=== PATIENT | male | born 1955 | race Caucasian/White ===

== ENCOUNTER 2019-09-15 04:43 | Emergency (ER) | payer OTHER, SELFPAY ==
[2019-09-14 09:01] VITALS: BMI 31.9
[2019-09-15 04:46] VITALS: BP 175/103; PULSE 80; RESP 12; TEMP 36.5; O2SAT 96; BMI 33.3
[2019-09-15 04:51] VITALS: BP 175/103; PULSE 80; RESP 12; TEMP 35.9; O2SAT 96
--- NOTE | 2019-09-15 04:52 | ED.RN ---
CALLED FOR EKG PER RN REQUEST, PULLED OLD EKGS FOR
--- NOTE | 2019-09-15 05:13 | EKG12_ITS ---
Test Reason : CP Blood Pressure : / mmHG Vent. Rate : 071 BPM Atrial Rate : 071 BPM P-R Int : 172 ms QRS Dur : 086 ms QT Int : 410 ms P-R-T Axes : 066 044 053 degrees QTc Int : 445 ms Normal sinus rhythm with sinus arrhythmia Normal ECG Confirmed by CHRISTIAN RODRIGUES, KEVON ([id number]), editor city LENNY HUGGINS ([id number]) on 09/22/2019 2:02:21 PM Referred By: YAS Confirmed By:KEVON GONZALES MD
--- NOTE | 2019-09-15 05:13 | RAD_ITS ---
STUDY: X-RAY CHEST REASON FOR EXAM: Male, 64 years old. Shortness of breath and chest pain and upper back pain TECHNIQUE: PA and lateral views of the chest. COMPARISON: None. FINDINGS: There are superimposed monitor leads. The lungs are clear and expanded. There is no demonstrated pleural abnormality. Normal size heart. Normal mediastinum and gabriel. Normal visualized pulmonary arteries. Normal visualized aortic arch and descending thoracic aorta. Normal visualized thoracic spine. Normal visualized ribs, clavicles, and shoulders. There is no demonstrated abnormality of the visualized soft tissue structures of the upper abdomen. RAD/Chest PA and Lateral IMPRESSION: Normal x-ray examination of the chest. Electronically Signed: Sharon Almonte MD at 6:03 EST , Service support ,
--- NOTE | 2019-09-15 05:14 | ED.VIS.GEN ---
History of Present Illness Chief Complaint: Chest Other Narrative: Patient is a 64-year-old male who presents with shortness of breath and dizziness. He denies medical history but does not have a primary care physician. He began to not feel well Saturday night. He had a fever of 102 and generalized malaise. He reports cough. He was seen at the urgent care yesterday diagnosed with a viral syndrome and prescribed azithromycin. Last night he woke up and had upper back pain shortness of breath and chest tightness. He also felt dizzy as if he may pass out. He has not had recurrent fever. He denies myalgias or arthralgias. No sore throat. He does complain of headache. No abdominal pain vomiting or diarrhea. Past Medical History - Allergies and Home Meds Allergies/Adverse Reactions: Allergies codeine Allergy (Verified 09/15/19 04:54) Unknown Sulfa (Sulfonamide Antibiotics) Allergy (Verified 09/15/19 04:54) Unknown Primary Care Physician: Wally Gan MD [Primary Care Provider] - Past Medical History: - - Denies medical history Surgical History: noncontributory Smoking Status: Never smoker Review of Systems All systems negative except as indicated General: Reports: Fever Cardiovascular: Reports: Chest pain Respiratory: Reports: Dyspnea, Cough Musculoskeletal: Reports: Back pain Neurological: Reports: Headache Physical Exam Vital Signs/Narrative: Vital Signs Temp Pulse Resp BP Pulse Ox 09/15/19 04:51 96.6 F L 80 12 175/103 H 96 09/15/19 04:46 97.7 F L 80 12 175/103 H 96 Inital Vital Signs reviewed: Yes General: Well nourished, Well developed Head: Normocephalic Eyes: EOMI ENT: Moist mucous membranes Cardiovascular: Regular rate, Regular rhythm Respiratory: No distress, CTA bilaterally Abdomen: Soft, Nontender, Nondistended Skin: Normal color Neurological: Alert Psychological: Normal affect Diagnostic/Tx/Re-eval - Medical Decision Making EKG shows normal sinus rhythm with a sinus arrhythmia. No acute ischemic changes. Laboratory studies as above. Chest x-ray unremarkable labs unremarkable. Patient's orthostatic vital signs were negative. He was treated here with IV fluids and does feel much better. He was able to stand without recurrent dizziness. I believe his near syncope may have been related to component of dehydration. At this time he has normal vital signs feels better with an unremarkable work-up I do feel he is safe for discharge. However he understands to return for new or worsening symptoms and was instructed on specific signs and symptoms to monitor for. He was advised to follow-up as an outpatient. All questions answered at the bedside and patient is agreeable to this plan. ED Disposition - Plan for ED Patient: Disposition: Home or Assisted Living Diagnosis: Viral syndrome, Near syncope Instructions: VIRAL SYNDROME (Adult), DEHYDRATION (6y-Adult) Referrals: Wally Gan MD [Primary Care Provider] -
[2019-09-15 05:20] LABS: Absolute Lymphocyte Count 2.47 X10^3/uL (0.83-4.51); Absolute Neutrophil Count 5.8 X10^3/uL (2.0-7.7); Basophil# 0.08 X10^3/uL; Basophil% 0.8 % (0-1); Eosinophil# 0.72 X10^3/uL; Eosinophils% 7.2 % (0-5); Hematocrit 48.1 % (40-54); Hemoglobin 16.1 g/dL (13.0-16.5); Lymphocyte # 2.47 X10^3/ul (4.0); Lymphocyte % 24.7 % (19-41); Mean Corp Hgb Conc 33.5 g/dL (32-36); Mean Corpuscular Hgb 30.3 pg (27.0-32.0); Mean Corpuscular Volume 90.4 fL (80-94); Mean Platelet Vol. 9.5 fl (6.2-12.0); Monocyte# 0.94 X10^3/uL; Monocyte% 9.4 % (0-10); NRBC Flagged by Analyzer 0 % (0-5); Neutrophil # 5.76 X10^3/uL (2.7-7.7); Neutrophil % 57.4 % (47-70); Platelet Count 286 K/mm3 (150-450); RBC Distribution Width CV 12.8 % (11.6-14.6); RBC Distribution Width SD 41.7 fl (35.1-43.9); Red Blood Count 5.32 M/mm3 (4.6-6.2)
[2019-09-15] MEDS: Ketorolac 30 MG/ML Syringe IV (05:23)
[2019-09-15] MEDS: 0.9% Normal Saline 1,000 ML 1000 ML IV (05:24)
[2019-09-15 05:25] VITALS: BP 160/98; BP 161/95; BP 167/93; PULSE 59; PULSE 65; PULSE 70
[2019-09-15 05:38] LABS: Anion Gap 6 (5-15); BUN 14 mg/dL (7-18); BUN/Creat Ratio 13.6 RATIO (10-20); Calcium,Total 8.8 mg/dL (8.5-10.1); Chloride 107 mmol/L (98-107); Creatinine, Serum 1.03 mg/dL (0.70-1.30); EST Glomerular Filtration Rate 77 mL/min (>60); Est Glom Filt Rate - Afr Amer 94 mL/min (>60); Estimated Creatinine Clearance 68.63 ml/min; Glucose 119 mg/dL (74-106); Potassium 3.9 mmol/L (3.5-5.1); Sodium Level 141 mmol/L (136-145)
[2019-09-15 06:29] VITALS: BP 136/83; PULSE 53; RESP 12; O2SAT 96
== END 2019-09-15 06:38 | disposition home or self-care (01) ==
PROVIDERS: Emergency Provider Emergency Medicine; Family Provider Family Medicine; PCP Family Medicine
DX: B34.9 Viral infection, unspecified (principal); R55 Syncope and collapse; Z88.2 Allergy status to sulfonamides; Z88.5 Allergy status to narcotic agent
CPT/HCPCS: 71046; 80048; 84484; 85025; 93005; 96361; 96374; 99285; A4216

== ENCOUNTER → 2019-12-24 14:23 | Outpatient (CLI) | payer OTHER, SELFPAY ==
--- NOTE | 2019-12-24 14:36 | EKG12_ITS ---
Test Reason : PREOP Blood Pressure : / mmHG Vent. Rate : 083 BPM Atrial Rate : 083 BPM P-R Int : 176 ms QRS Dur : 084 ms QT Int : 362 ms P-R-T Axes : 056 043 064 degrees QTc Int : 425 ms Normal sinus rhythm Normal ECG Confirmed by ADONAY RODRIGUES, LOREN ([id number]), photo editor LENNY HUGGINS ([id number]) on 12/25/2019 8:01:30 AM Referred By: Dangelo Martinez Confirmed By:SAM URISA MD
[2019-12-24 15:42] LABS: Hematocrit 45.9 % (40-54); Hemoglobin 15.5 g/dL (13.0-16.5); Mean Corp Hgb Conc 33.8 g/dL (32-36); Mean Corpuscular Hgb 30.1 pg (27.0-32.0); Mean Corpuscular Volume 89.1 fL (80-94); Mean Platelet Vol. 9.7 fl (6.2-12.0); Platelet Count 300 K/mm3 (150-450); RBC Distribution Width CV 12.8 % (11.6-14.6); RBC Distribution Width SD 41.6 fl (35.1-43.9); Red Blood Count 5.15 M/mm3 (4.6-6.2); White Blood Count 10.5 K/mm3 (4.4-11.0)
[2019-12-24 16:11] LABS: Anion Gap 5 (5-15); BUN 24 mg/dL (7-18); BUN/Creat Ratio 25.1 RATIO (10-20); Calcium,Total 9.2 mg/dL (8.5-10.1); Chloride 105 mmol/L (98-107); Creatinine, Serum 0.96 mg/dL (0.70-1.30); EST Glomerular Filtration Rate 84 mL/min (>60); Est Glom Filt Rate - Afr Amer 102 mL/min (>60); Glucose 85 mg/dL (74-106); Potassium 3.8 mmol/L (3.5-5.1); Sodium Level 138 mmol/L (136-145)
== END ==
PROVIDERS: PCP Family Medicine; Referring Provider Physician Assistant; Visit Provider Physician Assistant
DX: Z01.818 Encounter for other preprocedural examination (principal); Z01.810 Encounter for preprocedural cardiovascular examination
CPT/HCPCS: 36415; 80048; 85027; 93005

== ENCOUNTER → 2021-03-14 16:20 | Outpatient (CLI) | payer BC, SELFPAY ==
--- NOTE | 2021-03-14 16:25 | EKG12_ITS ---
Test Reason : PRE OP Blood Pressure : / mmHG Vent. Rate : 085 BPM Atrial Rate : 085 BPM P-R Int : 190 ms QRS Dur : 084 ms QT Int : 364 ms P-R-T Axes : 060 043 061 degrees QTc Int : 433 ms Normal sinus rhythm Normal ECG Confirmed by PASCALE RODRIGUES, LYNDON ([id number]), makeup editor VERONICA WARD ([id number]) on 03/16/2021 8:59:55 AM Referred By: Ino Castelan Confirmed By:LYNDON ASHRAF MD
[2021-03-14 17:10] LABS: Hematocrit 45.8 % (40-54); Hemoglobin 14.8 g/dL (13.0-16.5); Mean Corp Hgb Conc 32.3 g/dL (32-36); Mean Corpuscular Hgb 28.7 pg (27.0-32.0); Mean Corpuscular Volume 88.8 fL (80-94); Mean Platelet Vol. 9.4 fl (6.2-12.0); Platelet Count 324 K/mm3 (150-450); RBC Distribution Width CV 12.9 % (11.6-14.6); Red Blood Count 5.16 M/mm3 (4.6-6.2); White Blood Count 10.3 K/mm3 (4.4-11.0)
[2021-03-14 18:15] LABS: Anion Gap 8 (5-15); BUN 19 mg/dL (7-18); Calcium,Total 9.1 mg/dL (8.5-10.1); Chloride 104 mmol/L (98-107); EST Glomerular Filtration Rate 90 mL/min (>60); Est Glom Filt Rate - Afr Amer 109 mL/min (>60); Glucose 93 mg/dL (74-106); Potassium 3.9 mmol/L (3.5-5.1); Sodium Level 138 mmol/L (136-145)
== END ==
PROVIDERS: PCP Family Medicine; Referring Provider Orthopaedic Surgery; Visit Provider Orthopaedic Surgery
DX: Z01.810 Encounter for preprocedural cardiovascular examination (principal); Z01.818 Encounter for other preprocedural examination
CPT/HCPCS: 36415; 80048; 85027; 93005

== ENCOUNTER 2021-06-04 12:04 | Observation (INO) | payer BC, MEDICARE, SELFPAY ==
[2021-06-04] VITALS (17 sets, daily range): BP systolic 147–175; BP diastolic 72–94; PULSE 73–98; RESP 12–24; TEMP 36.5–37; O2SAT 95–98; BMI 34.5; BMI 34.9; BMI 34.0
--- NOTE | 2021-06-04 12:10 | ED.RN ---
THIS RN SPOKE WITH DR. ALCALA REGARDING PT SX. STROKE TEAM INITIATED.
[2021-06-04 12:16] LABS: Bedside Glucose 101 mg/dL (70-110)
--- NOTE | 2021-06-04 12:16 | CT_ITS ---
History: Neuro deficit, acute, stroke suspected TECHNIQUE: Routine carotid CT angiogram protocol was performed without and with IV contrast. In addition, images were obtained of the [place]. Nascet criteria using the distal ICAs for comparison were used for evaluation of stenoses. 3D reconstructions were reviewed. A radiation dose optimization technique was used for this scan. IV Contrast dosage and agent: 100mL Isovue-300 IV 100mL Isovue-300 CTA imaging was analyzed by [facility] LVO ContaCT to enable computer-assisted triage notification to rapidly detect a LVO and shortened time to notification. COMPARISON: None FINDINGS: --NECK: Calcific plaquing noted at both carotid bifurcations. AORTIC ARCH AND BRANCHES: Normal anatomy, patent. RIGHT CCA: No occlusion, significant stenosis or dissection. RIGHT ICA: No occlusion, significant stenosis or dissection. LEFT CCA: No occlusion, significant stenosis or dissection. LEFT ICA: No occlusion, significant stenosis or dissection. RIGHT VERTEBRAL ARTERY: No occlusion, significant stenosis or dissection. LEFT VERTEBRAL ARTERY: No occlusion, significant stenosis or dissection. NECK SOFT TISSUES: Unremarkable. LUNG APICES: Clear. BONES: Unremarkable. --HEAD: --Anterior circulation: ICAs: No significant stenosis at the intracranial/visualized segments. ACAs: No significant stenosis at the visualized segments. ACOM: Present. MCAs: No significant stenosis at the visualized segments. --Posterior circulation: PCOMs: Not present mangle feeder: No significant stenosis at the visualized segments. BASILAR ARTERY: No significant stenosis. VERTEBRAL ARTERIES: No significant stenosis at the intradural/visualized segments. No evidence of intracranial aneurysm or vascular malformation. CT/STROKE CTA Head AND Neck W/Con IMPRESSION: Negative CTA Head and Neck. Individualized dose optimization techniques were used for this CT. at 1250 Reported and signed by: Carlito Capps MD N.B. : The above Results were Read Back by Carlito Capps MD to Belinda Frank and understanding confirmed on 06/04/2021 12:46:26 (ET). Electronically Signed: Carlito Capps MD at 12:49 EDT Tel , Service support ,
--- NOTE | 2021-06-04 12:16 | CT_ITS ---
EXAM: CT HEAD WITHOUT INTRAVENOUS CONTRAST : 1955 CLINICAL INDICATION: Neuro deficit, acute, stroke suspected TECHNIQUE: Multiple axial images were obtained of the head without intravenous contrast. This CT exam was performed using one or more of the following dose reduction techniques: automated exposure control, adjustment of the mA and/or kV according to patient size, and/or use of iterative reconstruction technique. This report was created using [employer] report generation technology. COMPARISON: None. FINDINGS: BRAIN AND EXTRA-AXIAL SPACES: Unremarkable. No intra- or extra-axial hemorrhage. No evidence of acute infarct. No intracranial mass or mass effect. There is preservation of the gallardo/white matter interface. Posterior fossa structures are unremarkable. Ventricles are appropriate for age. No hydrocephalus. Basal cisterns are patent. BONES/JOINTS: Unremarkable. No discrete lytic or blastic abnormalities. SINUSES: Unremarkable as visualized. Clear. MASTOID AIR CELLS: Unremarkable. Clear. ORBITS: Visualized globes, extraocular muscles, optic nerves and retrobulbar fat appear unremarkable. CT/STROKE Brain/Head without Cont IMPRESSION: No acute intracranial abnormality. Aspect score: 10 Individualized dose optimization techniques were used for this CT. at 1246 Reported and signed by: Carlito Capps MD N.B. : The above Results were Read Back by Carlito Capps MD to Dr. Marie [id number], and understanding confirmed on 06/04/2021 12:46:19 (ET). Electronically Signed: Carlito Capps MD at 12:45 EDT Tel , Service support ,
--- NOTE | 2021-06-04 12:16 | RAD_ITS ---
History: Neuro deficit, acute, stroke suspected EXAMINATION/TECHNIQUE: XR Chest 1 View: Portable COMPARISON: September 15, 2019 FINDINGS: LINES/DEVICES: None. LUNGS: No consolidation, edema or effusion. No pneumothorax. MEDIASTINUM AND CARDIOVASCULAR STRUCTURES: Cardiac silhouette not enlarged. Central airways and mediastinal contour are unremarkable. BONES AND SOFT TISSUES: Unremarkable. RAD/Chest 1 View IMPRESSION: No radiographic evidence of acute cardiopulmonary disease. at 1346 Reported and signed by: Carlito Capps MD Electronically Signed: Carlito Capps MD at 13:45 EDT Tel , Service support ,
--- NOTE | 2021-06-04 12:16 | EKG12_ITS ---
Test Reason : STROKE TEAM Blood Pressure : / mmHG Vent. Rate : 085 BPM Atrial Rate : 085 BPM P-R Int : 192 ms QRS Dur : 088 ms QT Int : 370 ms P-R-T Axes : 047 044 046 degrees QTc Int : 440 ms Normal sinus rhythm Normal ECG Confirmed by KEVON GONZALES MD ([id number]), newspaper managing editor VERONICA WARD ([id number]) on 06/06/2021 9:44:02 AM Referred By: CARI Confirmed By:KEVON GONZALES MD
--- NOTE | 2021-06-04 12:17 | EDS_ITS ---
HPI History of Present Illness Chief Complaint: Confusion Informant: patient and spouse/S.O. Onset/Context/Timing Onset: Today Narrative Narrative: Patient presents with spouse secondary to confusion. states th at he was normal at 10 AM this morning. He went took a shower then went to the garage for short time. When he came back in the house he asked her what she was doing. She had explained what she was going to be doing in a conversation earlier in the day. Patient states he did not remember any of that. He does not remember things from this morning or even what occurred yesterday. He denies falling and injuring himself. He has no complaints at this time other than he feels confused. [facility] Medical History Arthritis Knee pain Shoulder pain Stomach ulcer Home Medications aspirin 81 mg PO DAILY 06/04/21 [History Last Taken Unknown] naproxen 06/04/21 [History Last Taken Unknown] Allergy/AdvReac Type Severity Reaction Status Date / Time codeine Allergy Unknown Verified 06/04/21 12:04 Sulfa (Sulfonamide Allergy Unknown Verified 06/04/21 12:04 Antibiotics) Family History Other Cancer Heart disease Surgical History History of back surgery History of knee surgery History of shoulder surgery Social History Smoking Status: Never smoker alcohol intake: current alcohol intake frequency: a few times a week Alcohol type: beer and wine ROS ROS ED Constitutional Constitutional ED: Denies chills or fever(s) Eyes Eyes: Denies change in vision ENT ENT ED: Denies sore throat Cardiovascular Cardiovascular: Denies chest pain Respiratory/Chest Respiratory/Chest: Denies cough or dyspnea Gastrointestinal Gastrointestinal: Denies abdominal pain, diarrhea, nausea or vomiting Genitourinary Genitourinary ED: Denies dysuria Musculoskeletal Musculoskeletal: Denies back pain Integumentary Denies rash Neurologic Neurologic: Denies headache(s) or weakness Psychiatric Psychiatric: Denies anxiety or depression Endocrine Endocrinology: Denies polydipsia or polyuria Allergic/Immunologic Allergic/Immunologic ED: Denies urticaria EXAM Physical Exam Const Vital Signs: 06/04/21 12:05 06/04/21 12:11 06/04/21 12:13 Temperature 98.6 F 98.6 F Temperature Source Temporal Temporal Pulse Rate 95 92 91 Respiratory Rate 16 15 15 Blood Pressure 171/93 H 175/84 H 175/84 H Blood Pressure Mean 119 114 114 Pulse Ox 97 97 97 Oxygen Delivery Method Room Air Room Air Room Air 06/04/21 12:21 06/04/21 12:25 06/04/21 12:40 Temperature Temperature Source Pulse Rate 98 89 Respiratory Rate 12 24 H Blood Pressure 156/94 H 158/94 H Blood Pressure Mean 114 115 Pulse Ox 96 97 Oxygen Delivery Method Room Air Room Air Room Air 06/04/21 12:55 06/04/21 13:10 06/04/21 13:25 Temperature Temperature Source Pulse Rate 74 79 81 Respiratory Rate 19 H 18 17 Blood Pressure 156/74 H 149/91 H 157/88 H Blood Pressure Mean 101 110 111 Pulse Ox 95 97 98 Oxygen Delivery Method Room Air Room Air Room Air 06/04/21 13:40 Temperature Temperature Source Pulse Rate 78 Respiratory Rate 18 Blood Pressure 153/89 H Blood Pressure Mean 110 Pulse Ox 97 Oxygen Delivery Method Room Air Positive well nourished and well developed General Appearance ED: well developed HEENT Reports normocephalic and head/scalp atraumatic Eyes PERRL and EOMs intact bilaterally Neck supple Chest Wall inspection of chest normal and palpation of chest normal Resp normal respiratory effort and clear to auscultation bilaterally Cardio regular rate and regular rhythm GI normal to inspection, nondistended, normoactive bowel sounds Palpation: soft Extremity normal to inspection Neuro oriented x3 and no sensory deficits noted Sensorium / Orientation: alert Motor Exam: strength 5/5 throughout Psych mental status grossly normal Skin no rashes or lesions noted STROKE Vital Signs/Narrative: Vital Signs Temp Pulse Resp BP Pulse Ox 06/04/21 13:40 78 18 153/89 H 97 06/04/21 13:25 81 17 157/88 H 98 06/04/21 13:10 79 18 149/91 H 97 06/04/21 12:55 74 19 H 156/74 H 95 06/04/21 12:40 89 24 H 158/94 H 97 06/04/21 12:25 98 12 156/94 H 96 06/04/21 12:13 98.6 F 91 15 175/84 H 97 06/04/21 12:11 92 15 175/84 H 97 06/04/21 12:05 98.6 F 95 16 171/93 H 97 NIHSS Initial: 1a Level of Consciousness: 0 1b LOC Questions (Score 2 if aphasic/stupor): 0 1c LOC Commands (Only score 1st attempt): 0 2 Best Gaze (If aphasic, use reflexive mvmts.): 0 3 Visual: 0 4 Facial Palsy: 0 5 Motor Arm Right (UN = amputation/fusion): 0 5 Motor Arm Left: 0 6 Motor Leg Right: 0 6 Motor Leg Left: 0 7 Limb ataxia (Only + if out of proportion): 0 8 Sensory (Aphasia/stupor=0 or 1, coma=2): 0 9 Best Language: 0 10 Dysarthria (mute, coma=2, intubated=UN): 0 11 Extinction and Inattention (only scored if +): 0 Total Score: 0 MDM MDM MDM Narrative Medical decision making narrative: Stroke alert was called on patient arrival. Patient was sent for CT and CTA of the head and neck. Labs, EKG, chest x-ray obtained. Lab Data Attestation: I reviewed the patient's lab results. Labs: Laboratory Results - last 24 hr 06/04/21 06/04/21 06/04/21 12:12 12:15 12:15 WBC 8.5 RBC 5.09 Hgb 15.2 Hct 45.7 MCV 89.8 MCH 29.9 MCHC 33.3 RDW Std Deviation 44.3 H RDW Coeff of Lisa 13.5 Plt Count 294 MPV 9.4 Immature Gran % (Auto) 0.800 Neut % (Auto) 54.7 Lymph % (Auto) 25.8 [place] % (Auto) 10.8 H Eos % (Auto) 7.1 H Baso % (Auto) 0.8 Absolute Neuts (auto) 4.6 Absolute Lymphs (auto) 2.18 Nucleated RBC % 0.2 PT 12.4 INR 1.0 APTT 28.4 Sodium Potassium Chloride Carbon Dioxide Anion Gap BUN Creatinine Estim Creat Clear Calc Est GFR (MDRD) Af Amer Est GFR (MDRD) Non-Af BUN/Creatinine Ratio Glucose Calcium Troponin I High Sens POC Glucose 101 06/04/21 12:15 WBC RBC Hgb Hct MCV MCH MCHC RDW Std Deviation RDW Coeff of Lisa Plt Count MPV Immature Gran % (Auto) Neut % (Auto) Lymph % (Auto) [place] % (Auto) Eos % (Auto) Baso % (Auto) Absolute Neuts (auto) Absolute Lymphs (auto) Nucleated RBC % PT INR APTT Sodium 138 Potassium 4.3 Chloride 106 Carbon Dioxide 27.0 Anion Gap 5 BUN 18 Creatinine 0.86 Estim Creat Clear Calc 82.85 Est GFR (MDRD) Af Amer 115 Est GFR (MDRD) Non-Af 95 BUN/Creatinine Ratio 21.0 H Glucose 102 Calcium 9.0 Troponin I High Sens 6.6 POC Glucose Radiography Diagnostic Testing: Radiology Impression Brain CT 06/04/21 12:16 IMPRESSION: No acute intracranial abnormality. Aspect score: 10 Individualized dose optimization techniques were used for this CT. at 1246 Reported and signed by: Carlito Capps MD N.B. : The above Results were Read Back by Carlito Capps MD to Dr. Frank Salomon MD, and understanding confirmed on 06/04/2021 12:46:19 (ET). Electronically Signed: Carlito Capps MD at 12:45 EDT Tel , Service support , ADDENDUM: 06/04/21 1253 IMPRESSION: No acute intracranial abnormality. Aspect score: 10 Individualized dose optimization techniques were used for this CT. at 1246 Reported and signed by: Carlito Capps MD N.B. : The above Results were Read Back by Carlito Capps MD to Dr. Frank Salomon MD, and understanding confirmed on 06/04/2021 12:46:19 (ET). Electronically Signed: Carlito Capps MD at 12:45 EDT Tel , Service support , Chest X-Ray 06/04/21 12:16 IMPRESSION: No radiographic evidence of acute cardiopulmonary disease. at 1346 Reported and signed by: Carlito Capps MD Electronically Signed: Carlito Capps MD at 13:45 EDT Tel , Service support , Head/Neck CTA 06/04/21 12:16 IMPRESSION: Negative CTA Head and Neck. Individualized dose optimization techniques were used for this CT. at 1250 Reported and signed by: Carlito Capps MD N.B. : The above Results were Read Back by Carlito Capps MD to Belinda Marie and understanding confirmed on 06/04/2021 12:46:26 (ET). Electronically Signed: Carlito Capps MD at 12:49 EDT Tel , Service support , ADDENDUM: 06/04/21 1257 IMPRESSION: Negative CTA Head and Neck. Individualized dose optimization techniques were used for this CT. at 1250 Reported and signed by: Carlito Capps MD N.B. : The above Results were Read Back by Carlito Capps MD to Belinda Marie and understanding confirmed on 06/04/2021 12:46:26 (ET). Electronically Signed: Carlito Capps MD at 12:49 EDT Tel , Service support , EKG Initial EKG: Attestation: I personally reviewed and interpreted this EKG as follows: Interpretation: Sinus Rhythm (Sinus at 73 with no acute ischemia.) Treatment and Re-Evaluation Comments:: Patient went to CT and back. Neurologist from [facility] being done on the computer and evaluate the patient. Patient does not have any focal deficits at this time. TPA is not indicated. Neurologist feels this may represent transient global amnesia. He did recommend admission for MRI. Stroke Documentation Questions Stroke Team Activated: Yes Was Patient considered for Endovascular Intervention?: No IV Alteplase (t-PA) Administered: No Discharge Plan Triage Chief Complaint: Confusion ED Provider: Belinda Marie Dx/Rx/DC Orders Clinical Impression: Amnesia, global, transient Prescriptions: No Action naproxen 500 mg tablet 500 mg PO BID RF: 0 aspirin 81 mg Tablet 81 mg PO DAILY RF: 0 Primary Care Provider: Wally Gan Referrals: Wally Gan MD [Primary Care Provider] - Disposition Disposition: Acute Care Hospital [facility]
[2021-06-04 12:24] LABS: Absolute Lymphocyte Count 2.18 X10^3/uL (0.83-4.51); Absolute Neutrophil Count 4.6 X10^3/uL (2.0-7.7); Basophil# 0.07 X10^3/uL; Basophil% 0.8 % (0-1); Eosinophils% 7.1 % (0-5); Hematocrit 45.7 % (40-54); Hemoglobin 15.2 g/dL (13.0-16.5); Lymphocyte # 2.18 X10^3/ul (0.83-4.51); Lymphocyte % 25.8 % (19-41); Mean Corp Hgb Conc 33.3 g/dL (32-36); Mean Corpuscular Hgb 29.9 pg (27.0-32.0); Mean Corpuscular Volume 89.8 fL (80-94); Mean Platelet Vol. 9.4 fl (6.2-12.0); Monocyte# 0.91 X10^3/uL; Monocyte% 10.8 % (0-10); NRBC Flagged by Analyzer 0.2 % (0-5); Neutrophil # 4.63 X10^3/uL (2.7-7.7); Neutrophil % 54.7 % (47-70); Platelet Count 294 K/mm3 (150-450); RBC Distribution Width CV 13.5 % (11.6-14.6); RBC Distribution Width SD 44.3 fl (35.1-43.9); Red Blood Count 5.09 M/mm3 (4.6-6.2); White Blood Count 8.5 K/mm3 (4.4-11.0)
[2021-06-04 12:36] LABS: Prothrombin Time (Protime)PT. 12.4 SECONDS (11.7-14.9)
[2021-06-04 12:37] LABS: Partial Thromboplast Time 28.4 Seconds (24.1-36.2)
[2021-06-04 12:41] LABS: Anion Gap 5 (5-15); BUN 18 mg/dL (7-18); Chloride 106 mmol/L (98-107); Creatinine, Serum 0.86 mg/dL (0.70-1.30); EST Glomerular Filtration Rate 95 mL/min (>60); Est Glom Filt Rate - Afr Amer 115 mL/min (>60); Estimated Creatinine Clearance 82.85 ml/min; Glucose 102 mg/dL (74-106); Potassium 4.3 mmol/L (3.5-5.1); Sodium Level 138 mmol/L (136-145); Troponin-I HS 6.6 pg/mL (3.0-78.5)
[2021-06-04 15:34] LABS: Bacteria 0 SEEN /hpf (None Seen); Mucous, Urine 0 SEEN /hpf (<or=2+); White Blood Cells 0 SEEN /hpf (0-5)
[2021-06-04 15:36] LABS: Color, Urine Yellow (Yellow); Glucose, Dipstick Normal (Normal); Ketone-Dipstick Negative (Negative); Leukocyte Esterase-Dipstick Negative /ul (Negative); Nitrite-Dipstick Negative (Negative); Occult Blood-Urine 10 /ul (Negative); Protein-Dipstick Negative (Negative); Specific Gravity, Urine 1.015 (1.002-1.030); Urine Bilirubin Dipstick Negative (Negative); Urine Clarity Sl. Cloudy (Clear); Urine Urobilinogen Normal (Normal)
--- NOTE | 2021-06-04 15:46 | HP.PCM.HOS_ITS ---
Documented by User: Nico ORTIZ 06/04/21 16:11 HPI - General General Date of Admission: 06/04/21 Date of Service: 06/04/21 Chief Complaint: Confusion HPI Narrative CAITLYN ARNOLD, is a 66 y/o M who presents to the ED at [facility] on 06/04/2021 with a chief complaint of confusion. Patient unable to provide much insight into events around his condition, so history was mainly obtained from . According to patient's , patient and his spouse had intercourse this morning and proceeded to plan out their day together, after which, went out to the garage to do some housework. Patient's reports patient return to the house from the garage after about half an hour or so, he was unsure about the events that him and his previously discussed and cannot remember having any discussion or any events related to the morning. Review of systems was overall negative, and only revealed headache which patient relates to his stressful job. Patient denies any recent sick contacts, patient did have an asymptomatic Covid infection in March, and subsequently has received both doses of the Moderna vaccine. Patient had no significant past medical history. Family history was significant for a stroke suffered by his mother. Vital signs in the ED were slightly hypertensive at 150/80. Other vital signs stable and patient is afebrile. CBC and BMP unremarkable. Chest x-ray was unremarkable and did not reveal any acute cardiopulmonary process. Head/neck CT-A was unremarkable for any significant stenosis. Patient was given labetalol in the ED for high blood pressure, urine culture and MRI recommended per [facility] teleneurology service. [facility] Medical History Arthritis Carpal tunnel syndrome Knee pain Shoulder pain Stomach ulcer Home Medications aspirin 81 mg PO DAILY 06/04/21 [History Last Taken Unknown] naproxen 500 mg PO BID 06/04/21 [History Last Taken Unknown] Allergy/AdvReac Type Severity Reaction Status Date / Time codeine Allergy Unknown Verified 06/04/21 12:04 Sulfa (Sulfonamide Allergy Unknown Verified 06/04/21 12:04 Antibiotics) Family History (Updated 06/04/21 @ 16:02 by Nico ORTIZ) Father CAD (coronary artery disease) Heart disease Mother CVA (cerebral vascular accident) Other Cancer Surgical History History of back surgery History of knee surgery History of shoulder surgery Social History Smoking Status: Never smoker alcohol intake: current alcohol intake frequency: a few times a week Alcohol type: beer and wine ROS Constitutional Constitutional: Denies anorexia, change in weight, chills, fatigue, fever(s), malaise, night sweats, weakness or other Eyes Eyes: Denies blurry vision, change in eye color, change in vision, discharge from eye(s), double vision, erythema, eye pain, loss of vision or other ENT HEENT: Denies abnormal hearing, dysphagia, ear pain, epistaxis, headache(s), hearing loss, nasal congestion, nasal discharge, post nasal drip, sinus pr essure, sore throat or other Cardiovascular Cardiovascular: Denies chest pain, claudication, dyspnea on exertion, edema, lightheadedness, orthopnea, palpitations, paroxysmal nocturnal dyspnea, rapid heart rate, syncope or other Respiratory/Chest Respiratory/Chest: Denies cough, dyspnea, excessive phlegm production, hemoptysis, productive cough, shortness of breath at rest, shortness of breath with exertion, wheezing or other Gastrointestinal Gastrointestinal: Denies abdominal pain, coffee ground emesis, constipation, diarrhea, dyspepsia, hematemesis, hematochezia, loose stools, melena, nausea, vomiting or other Genitourinary Genitourinary: Denies burning urination, difficulty urinating, dysuria, hem aturia, nocturia, urinary frequency, urinary hesitancy, urinary incontinence, urinary urgency or other Musculoskeletal Musculoskeletal: Denies arthralgias, back pain, joint pain, joint stiffness, joint swelling, myalgias, neck pain or other Neurologic Neurologic: Reports confusion and headache(s); Denies abnormal gait, abnormal speech, disequilibrium, dizziness, focal weakness, numbness, paresthesias, seizure-like activity, seizures, syncope, tingling, tremor(s) or other Psychiatric Psychiatric: Denies anxiety, depression, homicidal ideation, suicidal ideation or other Endocrine Endocrinology: Denies change in body appearance, cold intolerance, excessive sweating, heat intolerance, polydipsia, polyuria or other Hematologic/Lymphatic Hematologic/Lymphatic: Denies anemia, easy bleeding, easy bruising, lymphadenopathy or other Allergic/Immunologic Allergic/Immunologic: Denies rhinitis, hives, eczemia, asthma or other Vital Signs Vital Signs Vital Signs: 06/04/21 12:05 06/04/21 12:11 06/04/21 12:13 Temperature 98.6 F 98.6 F Temperature Source Temporal Temporal Pulse Rate 95 92 91 Respiratory Rate 16 15 15 Blood Pressure 171/93 H 175/84 H 175/84 H Blood Pressure Mean 119 114 114 Pulse Ox 97 97 97 Oxygen Delivery Method Room Air Room Air Room Air 06/04/21 12:21 06/04/21 12:25 06/04/21 12:40 Temperature Temperature Source Pulse Rate 98 89 Respiratory Rate 12 24 H Blood Pressure 156/94 H 158/94 H Blood Pressure Mean 114 115 Pulse Ox 96 97 Oxygen Delivery Method Room Air Room Air Room Air 06/04/21 12:55 06/04/21 13:10 06/04/21 13:25 Temperature Temperature Source Pulse Rate 74 79 81 Respiratory Rate 19 H 18 17 Blood Pressure 156/74 H 149/91 H 157/88 H Blood Pressure Mean 101 110 111 Pulse Ox 95 97 98 Oxygen Delivery Method Room Air Room Air Room Air 06/04/21 13:40 06/04/21 14:00 06/04/21 15:25 Temperature 98 F Temperature Source Temporal Pulse Rate 78 79 73 Respiratory Rate 18 18 18 Blood Pressure 153/89 H 147/75 H 151/78 H Blood Pressure Mean 110 99 102 Pulse Ox 97 97 96 Oxygen Delivery Method Room Air Room Air Room Air Weight Weight: 229 lb 15.074 oz Body Mass Index (BMI) 34.9 Physical Exam Const alert and oriented x3 General Appearance: cooperative HEENT normocephalic, head/scalp atraumatic and hearing grossly normal bilaterally Eyes EOMs intact bilaterally and conjunctivae normal Neck no lymphadenopathy, supple and no JVD Resp normal respiratory effort, no retractions and no use of accessory muscles Cardio regular rate, regular rhythm, no murmurs and no JVD GI normal to inspection, nondistended, normoactive bowel sounds and soft to palpation Extremity normal to inspection, full ROM and no clubbing, cyanosis or edema Skin no rashes or lesions noted, no wounds, skin turgor normal and no jaundice Neuro CN's II-XII intact bilaterally Psych affect normal Results Lab / Micro Data Result Diagrams: 06/04/21 12:15 06/04/21 12:15 Labs: Laboratory Results - last 24 hr 06/04/21 12:12: POC Glucose 101 06/04/21 12:15: WBC 8.5, RBC 5.09, Hgb 15.2, Hct 45.7, MCV 89.8, MCH 29.9, MCHC 33.3, RDW Std Deviation 44.3 H, RDW Coeff of Lisa 13.5, Plt Count 294, MPV 9.4, Immature Gran % (Auto) 0.800, Neut % (Auto) 54.7, Lymph % (Auto) 25.8, [place] % (Auto) 10.8 H, Eos % (Auto) 7.1 H, Baso % (Auto) 0.8, Absolute Neuts (auto) 4.6, Absolute Lymphs (auto) 2.18, Nucleated RBC % 0.2 06/04/21 12:15: PT 12.4, INR 1.0, APTT 28.4 06/04/21 12:15: Sodium 138, Potassium 4.3, Chloride 106, Carbon Dioxide 27.0, Anion Gap 5, BUN 18, Creatinine 0.86, Estim Creat Clear Calc 82.85, Est GFR (MDRD) Af Amer 115, Est GFR (MDRD) Non-Af 95, BUN/Creatinine Ratio 21.0 H, Glucose 102, Calcium 9.0, Troponin I High Sens 6.6 06/04/21 12:55: Urine Color Yellow, Urine Clarity Sl. Cloudy, Urine pH 6.0, Ur Specific [place] 1.015, Urine Protein Negative, Urine Glucose (UA) Normal, Urine Ketones Negative, Urine Occult Blood 10 H, Urine Nitrite Negative, Urine Bilirubin Negative, Urine Urobilinogen Normal, Ur Leukocyte Esterase Negative Radiology Impression Brain CT 06/04/21 12:16 IMPRESSION: No acute intracranial abnormality. Aspect score: 10 Individualized dose optimization techniques were used for this CT. at 1246 Reported and signed by: Carlito Capps MD N.B. : The above Results were Read Back by Carlito Capps MD to Dr. Marie [id number], and understanding confirmed on 06/04/2021 12:46:19 (ET). Electronically Signed: Carlito Capps MD at 12:45 EDT Tel , Service support , ADDENDUM: 06/04/21 1253 IMPRESSION: No acute intracranial abnormality. Aspect score: 10 Individualized dose optimization techniques were used for this CT. at 1246 Reported and signed by: Carlito Capps MD N.B. : The above Results were Read Back by Carlito Capps MD to Dr. Marie [id number], and understanding confirmed on 06/04/2021 12:46:19 (ET). Electronically Signed: Carlito Capps MD at 12:45 EDT Tel , Service support , Chest X-Ray 06/04/21 12:16 IMPRESSION: No radiographic evidence of acute cardiopulmonary disease. at 1346 Reported and signed by: Carlito Capps MD Electronically Signed: Carlito Capps MD at 13:45 EDT Tel , Service support , Head/Neck CTA 06/04/21 12:16 IMPRESSION: Negative CTA Head and Neck. Individualized dose optimization techniques were used for this CT. at 1250 Reported and signed by: Carlito Capps MD N.B. : The above Results were Read Back by Carlito Capps MD to Belinda Marie and understanding confirmed on 06/04/2021 12:46:26 (ET). Electronically Signed: Carlito Capps MD at 12:49 EDT Tel , Service support , ADDENDUM: 06/04/21 1257 IMPRESSION: Negative CTA Head and Neck. Individualized dose optimization techniques were used for this CT. at 1250 Reported and signed by: Carlito Cpaps MD N.B. : The above Results were Read Back by Carlito Capps MD to Belinda Marie and understanding confirmed on 06/04/2021 12:46:26 (ET). Electronically Signed: Carlito Capps MD at 12:49 EDT Tel , Service support , Assessment & Plan Assessment/Plan (1) CVA (cerebral vascular accident): (2) Amnesia, global, transient: (3) HTN (hypertension): QUALIFIERS: Hypertension type: primary hypertension Qualified Code(s): I10 - Essential (primary) hypertension PLAN: Patient is a 66-year-old male who presents to the ED at [facility] on 06/04/2021 with a chief complaint of confusion. Patient will be admitted for additional imaging to rule out CVA and/or infectious process. 1) confusion Patient reports a 6-hour history of confusion after engaging in intercourse with . Patient still unsure around any events related to his confusion, but displays no focal neurological deficits and is alert and oriented x3. Unclear if CVA or transient global amnesia. NIH stroke scale 0. Admitting for MRI, per [facility] teleneurology service recommendation obtained in the ED. Imaging to include brain CT and head and neck CTA did not reveal any acute intracranial abnormality or acute stenosis. Chest x-ray unremarkable. Vital signs stable and patient is afebrile. CBC and BMP unremarkable. Bedside glucose 101. Plan; admit to PCU, MRI of the brain ordered, serial NIH ordered PT/OT/ST eval ordered, hydralazine and labetalol as needed, Tylenol as, Zofran as neede. 2) HTN Patient has a history of high blood pressure related to his job, not on any current medication regimen. BP currently 151/78. Plan; allow for permissive hypertension in the event of CVA, hydralazine and labetalol as above. DVT prophylaxis - low risk, not indicated CODE STATUS: Full code Advance care planning: Patient's is patient's healthcare power of energy attorney. Patient seen by Nico Boswell PA-C, under the supervision of Dr. Wilder. Documented by User: Dr. Papo Wilder MD 06/04/21 16:54 HPI - General General Date of Admission: 06/04/21 Date of Service: 06/04/21 Chief Complaint: Sudden confusion and not able to recall the events of the morning. HPI Narrative This is a 66-year-old gentleman came to ER after he had sudden confusi on not able to recall. As per the he suddenly got confused and could not remember the conversation of the morning. 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 Patient denies any focal weakness or change in sensation. Never had a stroke, CO or coronary artery disease or cardiac stent. Has remote history of smoking quit about 30 years ago. Stroke alert was called in ED and discussed with [facility]. CT head and CTA head and neck did not show acute intracranial abnormality. Chest x-ray no acute cardiopulmonary disease. Twelve-lead EKG shows normal sinus rhythm at 85 bpm. QTc 440 ms. [facility] Medical History Arthritis Carpal tunnel syndrome Knee pain Shoulder pain Stomach ulcer Home Medications aspirin 81 mg PO DAILY 06/04/21 [History Last Taken Unknown] naproxen 500 mg PO BID 06/04/21 [History Last Taken Unknown] Allergy/AdvReac Type Severity Reaction Status Date / Time codeine Allergy Unknown Verified 06/04/21 12:04 Sulfa (Sulfonamide Allergy Unknown Verified 06/04/21 12:04 Antibiotics) Family History (Updated 06/04/21 @ 16:02 by Nico ORTIZ) Father CAD (coronary artery disease) Heart disease Mother CVA (cerebral vascular accident) Other Cancer Surgical History History of back surgery History of knee surgery History of shoulder surgery Social History Smoking Status: Never smoker alcohol intake: current alcohol intake frequency: a few times a week Alcohol type: beer and wine Physical Exam Narrative Physical exam General: Alert, Oriented x3, Cooperative HEENT: Atraumatic, PERRLA, EOMI, Normocephalic. No peripheral loss of vision in all 4 quadrants. Oral: No Gingival or Mucosal Lesions/ Ulcerations Neck: Supple, No JVD, Negative Carotid Bruits Lungs: Air entry equal in bilateral lung bases. No crepitation/rhonchi Cardiovascular: Regular rate, Regular Rhythm, Normal S1, Normal S2, No murmurs Abdomen: Bowel Sounds Present, Soft, Non Tender, Non-Distended : No renal angle tenderness. No suprapubic tenderness. Extremities: No edema, Capillary Refill Less than 3 Seconds Skin: No rashes, No breakdown Musculoskeletal: No Tenderness to Palpation of Joints or Extremities Neurological: Cranial nerves II-XII grossly intact, Deep Tendon Reflexes 2+/4 and Symmetrical, NIH stroke scale 0. Power of major joints 5/5. Psych/Mental Status: Mild anxious. Results Lab / Micro Data Result Diagrams: 06/04/21 12:15 06/04/21 12:15 Assessment & Plan Assessment/Plan (1) Amnesia, global, transient: (2) HTN (hypertension): QUALIFIERS: Hypertension type: primary hypertension Qualified Code(s): I10 - Essential (primary) hypertension (3) Hypothyroidism: QUALIFIERS: Hypothyroidism type: acquired Qualified Code(s): E03.9 - Hypothyroidism, unspecified (4) Cervical spondylosis without myelopathy: PLAN: This patient was seen in conjunction with DIANA Bean. I have independently interviewed and examined the patient and reviewed pertinent history, examination findings, laboratory and plan of management. I have re viewed the note and agree with the documented findings with the few additional points. In brief, patient is admitted for sudden onset of confusion and amnesia. Patient seems to be in stress regarding work. CT head and CT angiogram of head and neck does not show acute change. EKG normal sinus rhythm. [facility] tel[facility] consult was done recommended UA and MRI brain. UA is negative and patient does not have symptoms of dysuria or increased frequency or urgency. Negative stroke scale monitoring. 2D echo tomorrow a.m. Rest of the comorbidities as mentioned above DVT prophylaxis: Moderate risk Lovenox 40 mg subcut daily ordered. I have discussed my assessment with DIANA Bean and orders have been reviewed. Living will/advanced directive/end of life care: Patient does have living will or advanced directive. After discussion of benefits/risks procedures involved with full code, DNR CC arrest and DNR CC, the patient and his opted for full code. Patient does want artificial life support including intubation, tube feed, ventilator and/chest compression, central venous catheter, vasopressor and DC shock if needed Total time spent in [id number] encounter in discussion of advanced directive 16 minutes. Charges/Coding Visit Charges Inpatient E&M: 85606 Init Hosp L3 OBSV E&M: 64378 Initial observation care L3 Procedures Hospitalists Procedures: 57116 Advncd Care Plan 30 Min
[2021-06-04 16:09] LABS: Amorphous Sediment 1+ URATE; Red Blood Cells-Urine 0-5 SEEN /hpf (0-5); Squamous Epithelial Cells - UA 0-5 SEEN /hpf (0-5)
--- NOTE | 2021-06-04 16:54 | ECHOD_ITS ---
Reason For Study: TIA/CVA Procedure This was a 2D Doppler, Color Flow transthoracic echocardiogram. Exam performed portable in patient room. Left Ventricle Normal LV size. Left ventricular systolic function is normal. The estimated ejection fraction is 60 %. Stage 1 diastolic dysfunction. No regional wall motion abnormalities noted. Right Ventricle Normal RV size. Normal systolic function. Atria Normal left atrium. Normal right atrium. Bubble contrast study negative for right to left interatrial shunt. Mitral Valve Normal mitral valve. Tricuspid Valve Normal tricuspid valve. Aortic Valve Trisinus/trileaflet aortic valve. Mild focal aortic valve calcification. Pulmonic Valve The pulmonic valve is not well visualized. Great Vessels Normal aortic root. The pulmonary artery is normal size. Normal inferior vena cava. Pericardium/Pleural No pericardial effusion. Medication Performed a rapid injection of agitated mix of 9 cc saline and 1cc air to assess for atrial septal defect. MMode/2D Measurements & Calculations LVIDd: 4.7 cm IVSd: 1.1 cm Ao root diam: 2.9 cm LVIDs: 3.3 cm LVPWd: 1.1 cm LA dimension: 3.6 cm RVDd: 2.9 cm FS: 30.7 % LAV(MOD-bp): 52.6 ml LA A4 area: 18.1 cm2 LA dimension(2D): 3.6 cm LAV(MOD-bp) Indexed: 24.6 ml/m2 LAV(MOD-sp2): 51.4 ml LAV(MOD-sp4): 51.7 ml RA A4 area: 12.4 cm2 Time Measurements MV dec time: 0.21 sec Doppler Measurements & Calculations MV E max nickolas: 64.9 cm/sec Lat Peak E' Nickolas: 8.1 cm/sec Med Peak E' Nickolas: 10.8 cm/sec MV A max nickolas: 92.6 cm/sec E/E' lat: 8.0 E/E' med: 6.0 MV E/A: 0.70 Ao V2 max: 157.2 cm/sec LV V1 max: 117.8 cm/sec PA V2 max: 119.2 cm/sec Ao max P.9 mmHg LV V1 max P.5 mmHg ECHO/Echo Complete Interpretation Summary Normal LV size. Left ventricular systolic function is normal. The estimated ejection fraction is 60 %. Stage 1 diastolic dysfunction. Bubble contrast study negative for right to left interatrial shunt. Ordering Physician: Papo Wilder Referring Physician: Wally Gan Performed By: Loli Preston, ARIEL, RVT
[2021-06-04 17:18] LABS: Troponin-I HS 9.7 pg/mL (3.0-78.5)
[2021-06-04] MEDS: Enoxaparin 40 MG/0.4 ML Syringe SC (18:23)
[2021-06-04] MEDS: Atorvastatin Calcium 80 MG Tablet PO (21:00)
[2021-06-04] MEDS: DiphenhydrAMINE 25 MG Capsule 50 MG PO (21:55)
[2021-06-05] VITALS (9 sets, daily range): BP systolic 130–155; BP diastolic 70–86; PULSE 66–85; RESP 16–18; TEMP 36.4–36.9; O2SAT 96–99; BMI 34.0
[2021-06-05] MEDS: Acetaminophen 325 MG Tablet 650 MG PO (04:40)
[2021-06-05 06:12] LABS: Hemoglobin 14.4 g/dL (13.0-16.5); Mean Corp Hgb Conc 33.5 g/dL (32-36); Mean Corpuscular Hgb 30.2 pg (27.0-32.0); Mean Corpuscular Volume 90.1 fL (80-94); Mean Platelet Vol. 9.8 fl (6.2-12.0); Platelet Count 298 K/mm3 (150-450); RBC Distribution Width CV 13.9 % (11.6-14.6); Red Blood Count 4.77 M/mm3 (4.6-6.2); White Blood Count 7.9 K/mm3 (4.4-11.0)
[2021-06-05 06:56] LABS: Anion Gap 3 (5-15); BUN 17 mg/dL (7-18); BUN/Creat Ratio 20.3 RATIO (10-20); Calcium,Total 8.5 mg/dL (8.5-10.1); Chloride 106 mmol/L (98-107); Cholesterol 171 mg/dL (200); Creatinine, Serum 0.84 mg/dL (0.70-1.30); EST Glomerular Filtration Rate 98 mL/min (>60); Est Glom Filt Rate - Afr Amer 118 mL/min (>60); Estimated Creatinine Clearance 84.82 ml/min; Glucose 111 mg/dL (74-106); High Density Lipoprotein 40 mg/dL; Potassium 3.9 mmol/L (3.5-5.1); Sodium Level 139 mmol/L (136-145); Thyroid Stim Hormone (TSH) 5.38 uIU/mL (0.358-3.74); Triglycerides 178 mg/dL; Very Low Density Lipoprotein 36 mg/dL (5-40)
--- NOTE | 2021-06-05 09:00 | MRI_ITS ---
HISTORY: CVA, memory issues. TECHNIQUE: Multiplanar and multisequence MR images of the brain were obtained without gadolinium. # of images incl. paperwork: 284. COMPARISON: CT prior day. FINDINGS: BRAIN PARENCHYMA: Minimal T2 FLAIR hyperintense signal in the periventricular white matter, likely chronic small vessel ischemic gliosis. No abnormal focus of restricted diffusion. INTRACRANIAL HEMORRHAGE: No acute intracranial hemorrhage. CSF SPACES: Cerebral ventricles, cortical sulci, and other extra-axial CSF spaces are within normal limits in size for patient's age. No midline shift or other significant mass effect. No extra-axial fluid collection. VASCULAR SYSTEM: Major intracranial flow-voids maintained. ORBITS: Unremarkable. PARANASAL SINUSES AND MASTOID AIR CELLS: Clear. MRI/Brain without Contrast IMPRESSION: No evidence for acute infarct. at 1206 Reported and signed by: Kellie Granados MD Electronically Signed: Kellie Granados MD at 12:05 EDT Tel , Service support ,
--- NOTE | 2021-06-05 11:47 | PCM.DC ---
Discharge Instructions Diet Discharge Diet: No restrictions Activity Discharge Activity: Return to Normal Activity Weight Bearing Status: Weight bearing as tolerated Dressing / Incision Call your doctor if you observe: Fever of 101 or Higher, Numbness or Tingling, Shortness of breath, Dizziness, Chest pain, Increased palpitations (irregular heartbeat) and Calf discomfort Follow Up Care Please Follow Up With: Primary care provider When: Within the next two weeks. Test Results: Test results from this visit will be discussed in further detail at your follow-up appointment, if applicable. Discharge Plan Admission Admit Date/Time: 06/04/21 15:55 Primary Reason for Your Visit: Confusion Attending Provider: Rajat Clark Primary Care Provider: Wally Gan Discharge Orders/Prescriptions Prescriptions: Continued naproxen 500 mg tablet 500 mg PO BID RF: 0 aspirin 81 mg Tablet 81 mg PO DAILY RF: 0 tramadol 50 mg tablet 50 mg PO Q6H PRN PRN (Reason: Pain) RF: 0 Unisom (doxylamine) 25 mg Tablet 50 mg PO QHS RF: 0 Referrals / Follow Up: Parker Castillo MD [STAFF PHYSICIAN] - See Referral Note (Establish care for for follow on EEG to assess episode of Transient Global Amnesia. ) Wally Gan MD [Primary Care Provider] - Within 2 Weeks Disposition Disposition (needs filled in before D/C Order can be placed): Home, Self Care
[2021-06-05] MEDS: Aspirin 81 MG TAB.CHEW PO (12:35)
[2021-06-05] MEDS: Ibuprofen 600 MG Tablet PO (12:35)
--- NOTE | 2021-06-05 12:36 | CASEMGMT ---
SW did not complete as per chart patient did not have a Stroke or TIA. Joya Davis CIRCUS TRAIN SUPERVISOR CARLITOS
--- NOTE | 2021-06-05 14:12 | CASEMGMT ---
Per therapy, no further therapy recommended. SStaten RN CM
--- NOTE | 2021-06-05 14:20 | PCM.DC.SUM ---
Documented by User: Nico ORTIZ 06/05/21 16:46 Providers Date of Admission: 06/04/21 Primary Care Physician: Dr. Wally Gan MD Reason For Visit: STROKE Diagnosis Discharge Diagnosis (1) Amnesia, global, transient: Status: Acute Code(s): G45.4 - Transient global amnesia (2) HTN (hypertension): Status: Chronic Code(s): I10 - Essential (primary) hypertension Qualifiers: Hypertension type: primary hypertension Qualified Code(s): I10 - Essential (primary) hypertension (3) Hypothyroidism: Status: Chronic Code(s): E03.9 - Hypothyroidism, unspecified Qualifiers: Hypothyroidism type: acquired Qualified Code(s): E03.9 - Hypothyroidism, unspecified (4) Cervical spondylosis without myelopathy: Status: Chronic Code(s): M47.812 - Spondylosis without myelopathy or radiculopathy, cervical region Medications at Discharge Home Medications Unisom (doxylamine) 50 mg PO QHS 06/04/21 aspirin 81 mg PO DAILY 06/04/21 naproxen 500 mg PO BID 06/04/21 tramadol 50 mg PO Q6H PRN PRN 06/04/21 Hospital Course Procedures Transthoracic echo Summary of Care Provided Minutes Spent on Discharge: 35 Hospital Course: Disposition: Patient to be discharged home, no additional therapies or home health care needs identified. 1) confusion secondary to transient global amnesia Brain MRI demonstrates no evidence of acute intracranial abnormality. Patient displays no focal neurological deficits. NIH stroke scale 0. Echocardiogram obtained on 06/05 demonstrated demonstrated normal LV size systolic function, an estimated EF of 60% and stage I diastolic dysfunction. Echocardiogram stable from 2014. Plan; discharge home, follow-up with primary care provider in the next 2 weeks, follow-up with Dr. Castillo in regards to your concerns over potential future events of amnesia and the EEG, continue aspirin. 2) HTN Stable, follow-up with primary care provider in the next 2 weeks. Patient seen by Nico Boswell PA-C, under the supervision of Dr. Clark. Physical Exam Narrative Patient is a 66-year-old male comfortably resting in bed, alert and orient x3. Patient denies any focal neurological symptoms to include vision changes, weakness, numbness/tingling or difficulty speaking. Const alert, oriented x3 and no apparent distress HEENT normocephalic, head/scalp atraumatic and hearing grossly normal bilaterally Eyes PERRL, EOMs intact bilaterally and conjunctivae normal Neck no lymphadenopathy, supple and no JVD Resp normal respiratory effort, no retractions, no use of accessory muscles and clear to auscultation bilaterally Cardio regular rate, regular rhythm, no murmurs and no JVD GI normal to inspection, nondistended, normoactive bowel sounds, soft to palpation and non-tender Extremity normal to inspection, full ROM and no clubbing, cyanosis or edema Skin no rashes or lesions noted, no wounds and skin turgor normal Psych affect normal Weight / BMI Weight Weight: 223 lb 8.78 oz Body Mass Index (BMI) 34.0 ABG / Lab / Microbiology Data Result Diagrams: 06/05/21 05:20 06/05/21 05:20 Laboratory: Laboratory Results - last 24 hr 06/04/21 12:55: Urine Color Yellow, Urine Clarity Sl. Cloudy, Urine pH 6.0, Ur Specific Walford 1.015, Urine Protein Negative, Urine Glucose (UA) Normal, Urine Ketones Negative, Urine Occult Blood 10 H, Urine Nitrite Negative, Urine Bilirubin Negative, Urine Urobilinogen Normal, Ur Leukocyte Esterase Negative, Urine RBC 0-5 SEEN, Urine WBC 0 SEEN, Ur Squamous Epith Cells 0-5 SEEN, Amorphous Sediment 1+ URATE, Urine Bacteria 0 SEEN, Urine Mucus 0 SEEN 06/04/21 16:29: Troponin I High Sens 9.7 06/05/21 05:20: WBC 7.9, RBC 4.77, Hgb 14.4, Hct 43.0, MCV 90.1, MCH 30.2, MCHC 33.5, RDW Std Deviation 46.0 H, RDW Coeff of Lisa 13.9, Plt Count 298, MPV 9.8 06/05/21 05:20: Sodium 139, Potassium 3.9, Chloride 106, Carbon Dioxide 30.0, Anion Gap 3 L, BUN 17, Creatinine 0.84, Estim Creat Clear Calc 84.82, Est GFR (MDRD) Af Amer 118, Est GFR (MDRD) Non-Af 98, BUN/Creatinine Ratio 20.3 H, Glucose 111 H, Calcium 8.5, Triglycerides 178, Cholesterol 171, LDL Cholesterol 95, VLDL Cholesterol 36, HDL Cholesterol 40, TSH 5.38 H Radiography Diagnostic Testing: Radiology Impression Brain MRI 06/05/21 09:00 IMPRESSION: No evidence for acute infarct. at 1206 Reported and signed by: Kellie Granados MD Electronically Signed: Kellie Granados MD at 12:05 EDT Tel , Service support , D/C Instructions Discharge Diet: No restrictions Weight Bearing Status: Weight bearing as tolerated Call your doctor if you observe: Fever of 101 or Higher, Numbness or Tingling, Shortness of breath, Dizziness, Chest pain, Increased palpitations (irregular heartbeat) and Calf discomfort Please Follow Up With: Primary care provider When: Within the next two weeks. Meaningful Use Info Meaningful Use Diagnoses (Choose all that apply): None applicable Discharge Plan Admission Admit Date/Time: 06/04/21 15:55 Primary Reason for Your Visit: Confusion Attending Provider: Rajat Clark Primary Care Provider: Wally Gan Discharge Orders/Prescriptions Prescriptions: Continued naproxen 500 mg tablet 500 mg PO BID RF: 0 aspirin 81 mg Tablet 81 mg PO DAILY RF: 0 tramadol 50 mg tablet 50 mg PO Q6H PRN PRN (Reason: Pain) RF: 0 Unisom (doxylamine) 25 mg Tablet 50 mg PO QHS RF: 0 Referrals / Follow Up: Parker Castillo MD [STAFF PHYSICIAN] - See Referral Note (Establish care for for follow on EEG to assess episode of Transient Global Amnesia. ) Wally Gan MD [Primary Care Provider] - Within 2 Weeks Disposition Disposition (needs filled in before D/C Order can be placed): Home, Self Care Documented by User: Dr. Rajat Clark MD 06/05/21 17:57 Providers Date of Admission: 06/04/21 Reason For Visit: STROKE Medications at Discharge Home Medications Unisom (doxylamine) 50 mg PO QHS 06/04/21 aspirin 81 mg PO DAILY 06/04/21 naproxen 500 mg PO BID 06/04/21 tramadol 50 mg PO Q6H PRN PRN 06/04/21 Hospital Course Summary of Care Provided Hospital Course: This patient was seen in conjunction with Nico Boswell PA-C. I have independently interviewed and examined the patient and reviewed pertinent historical, laboratory, and other data. Please refer to Nico Boswell PA-C's note for details of this patient's presentation, findings, and recommendations. I have reviewed Nico Boswell PA-C's note and concur with documented findings. In brief, patient is a 66-year-old gentleman admitted with episode of confusion. An assessment of transient global amnesia made admitted to a monitored bed for subsequent work-up Hospital course; as documented above ABG / Lab / Microbiology Data Result Diagrams: 06/05/21 05:20 06/05/21 05:20 Discharge Plan Admission Admit Date/Time: 06/04/21 15:55 Primary Reason for Your Visit: Confusion Attending Provider: Rajat Clark Primary Care Provider: Wally Gan Discharge Orders/Prescriptions Prescriptions: Continued naproxen 500 mg tablet 500 mg PO BID RF: 0 aspirin 81 mg Tablet 81 mg PO DAILY RF: 0 tramadol 50 mg tablet 50 mg PO Q6H PRN PRN (Reason: Pain) RF: 0 Unisom (doxylamine) 25 mg Tablet 50 mg PO QHS RF: 0 Referrals / Follow Up: Parker Castillo MD [STAFF PHYSICIAN] - See Referral Note (Establish care for for follow on EEG to assess episode of Transient Global Amnesia. ) Wally Gan MD [Primary Care Provider] - Within 2 Weeks Disposition Disposition (needs filled in before D/C Order can be placed): Home, Self Care Charges/Coding Visit Charges OBSV E&M: 27070 Observation care discharge Hospital Course Imaging Results Imaging Results: 06/05/21 09:00 Brain without Contrast [MRI] Stat
== END 2021-06-05 11:49 | disposition home or self-care (01) ==
LOC: ED 14:40 → PCU 15:50
PROVIDERS: Physician Assistant; Admitting Provider Internal Medicine; Emergency Provider Emergency Medicine; PCP Family Medicine; Visit Provider Internal Medicine
DX: G45.4 Transient global amnesia (principal); I10 Essential (primary) hypertension; M19.90 Unspecified osteoarthritis, unspecified site; R29.700 NIHSS score 0; Z79.899 Other long term (current) drug therapy; Z79.82 Long term (current) use of aspirin; Z86.16 Personal history of COVID-19; E03.9 Hypothyroidism, unspecified; M47.812 Spondylosis without myelopathy or radiculopathy, cervical region
CPT/HCPCS: 36415; 70450; 70496; 70498; 70551; 71045; 80048; 80061; 81001; 82962; 84443; 84484; 85025; 85027; 85610; 85730; 87086; 93005; 93306; 94762; 96372; 97161; 97166; 99218; 99285; Q9967; A4216; G0378

== ENCOUNTER → 2021-08-18 16:18 | Outpatient (CLI) | payer BC, SELFPAY ==
[2021-08-18 16:55] LABS: Hemoglobin 14.8 g/dL (13.0-16.5); Mean Corp Hgb Conc 34.4 g/dL (32-36); Mean Corpuscular Hgb 30.6 pg (27.0-32.0); Mean Corpuscular Volume 88.8 fL (80-94); Mean Platelet Vol. 9.6 fl (6.2-12.0); Platelet Count 266 K/mm3 (150-450); RBC Distribution Width CV 13.5 % (11.6-14.6); RBC Distribution Width SD 43.8 fl (35.1-43.9); Red Blood Count 4.84 M/mm3 (4.6-6.2); White Blood Count 10.3 K/mm3 (4.4-11.0)
[2021-08-18 17:18] LABS: Anion Gap 6 (5-15); BUN 21 mg/dL (7-18); BUN/Creat Ratio 24.5 RATIO (10-20); Calcium,Total 8.6 mg/dL (8.5-10.1); Chloride 106 mmol/L (98-107); Creatinine, Serum 0.86 mg/dL (0.70-1.30); EST Glomerular Filtration Rate 95 mL/min (>60); Est Glom Filt Rate - Afr Amer 115 mL/min (>60); Glucose 114 mg/dL (74-106); Potassium 3.9 mmol/L (3.5-5.1); Sodium Level 139 mmol/L (136-145)
== END ==
PROVIDERS: PCP Family Medicine; Referring Provider Orthopaedic Surgery; Visit Provider Orthopaedic Surgery
DX: Z01.818 Encounter for other preprocedural examination (principal); Z01.810 Encounter for preprocedural cardiovascular examination
CPT/HCPCS: 36415; 80048; 85027

== ENCOUNTER → 2022-05-03 | Outpatient (CLI) | payer MEDICARE, SELFPAY ==
[2022-05-03 10:40] LABS: Absolute Lymphocyte Count 2.08 X10^3/uL (0.83-4.51); Absolute Neutrophil Count 4.5 X10^3/uL (2.0-7.7); Basophil# 0.09 X10^3/uL; Basophil% 1.1 % (0-1); Eosinophil# 0.99 X10^3/uL; Eosinophils% 11.6 % (0-5); Hematocrit 44.9 % (40-54); Hemoglobin 15.1 g/dL (13.0-16.5); Lymphocyte # 2.08 X10^3/ul (0.83-4.51); Lymphocyte % 24.3 % (19-41); Mean Corp Hgb Conc 33.6 g/dL (32-36); Mean Corpuscular Hgb 30.3 pg (27.0-32.0); Mean Platelet Vol. 9.8 fl (6.2-12.0); Monocyte# 0.84 X10^3/uL; Monocyte% 9.8 % (0-10); NRBC Flagged by Analyzer 0 % (0-5); Neutrophil # 4.54 X10^3/uL (2.7-7.7); Neutrophil % 52.8 % (47-70); Platelet Count 302 K/mm3 (150-450); RBC Distribution Width SD 45.7 fl (35.1-43.9); Red Blood Count 4.99 M/mm3 (4.6-6.2); White Blood Count 8.6 K/mm3 (4.4-11.0)
[2022-05-03 10:47] LABS: Erythrocyte Sedimentation Rate 9 mm/hr (0-20)
[2022-05-03 11:12] LABS: CRP 4.43 mg/L (0.0-3.0); Rheumatoid Factor < 10.0 IU/mL (<15); Uric Acid 4.9 mg/dL (3.5-7.2)
[2022-05-04 13:03] LABS: ANTINUCLEAR ANTIBODIES DIRECT Negative (Negative)
== END | disposition home or self-care (01) ==
PROVIDERS: PCP Family Medicine; Referring Provider Orthopaedic Surgery; Visit Provider Orthopaedic Surgery
DX: M50.322 Other cervical disc degeneration at C5-C6 level (principal)
CPT/HCPCS: 36415; 84550; 85025; 85652; 86038; 86140; 86431

== ENCOUNTER → 2023-04-23 | Outpatient (CLI) | payer MEDICARE, SELFPAY ==
[2023-04-23 17:39] LABS: Absolute Lymphocyte Count 3.08 X10^3/uL (0.83-4.51); Absolute Neutrophil Count 10.5 X10^3/uL (2.0-7.7); Basophil# 0.08 X10^3/uL; Basophil% 0.5 % (0-1); Eosinophil# 0.15 X10^3/uL; Eosinophils% 0.9 % (0-5); Hematocrit 47.7 % (40-54); Hemoglobin 16.2 g/dL (13.0-16.5); Lymphocyte # 3.08 X10^3/ul (0.83-4.51); Lymphocyte % 19.5 % (19-41); Mean Corpuscular Volume 91.4 fL (80-94); Mean Platelet Vol. 9.6 fl (6.2-12.0); Monocyte# 1.58 X10^3/uL; NRBC Flagged by Analyzer 0.1 % (0-5); Neutrophil # 10.52 X10^3/uL (2.7-7.7); Neutrophil % 66.6 % (47-70); POSITIVE DIFFERENTIAL YES; Platelet Count 372 K/mm3 (150-450); RBC Distribution Width CV 13.9 % (11.6-14.6); RBC Distribution Width SD 46.5 fl (35.1-43.9); Red Blood Count 5.22 M/mm3 (4.6-6.2); White Blood Count 15.8 K/mm3 (4.4-11.0)
[2023-04-23 18:14] LABS: ALB/GLOB Ratio 0.9 RATIO (0.9-2.4); AST(SGOT) 32 U/L (15-37); Alanine Aminotransfer ALT/SGPT 69 U/L (16-61); Albumin, Serum 3.7 g/dL (3.2-5.0); Alkaline Phosphatase 45 U/L (45-117); Anion Gap 7 (5-15); BUN 29 mg/dL (7-18); BUN/Creat Ratio 32.5 RATIO (10-20); Calcium,Total 9.6 mg/dL (8.5-10.1); Chloride 102 mmol/L (98-107); Creatinine, Serum 0.89 mg/dL (0.70-1.30); EST Glomerular Filtration Rate 90 mL/min (>60); Est Glom Filt Rate - Afr Amer 109 mL/min (>60); Glucose 91 mg/dL (74-106); Lipase 428 U/L (13-75); Potassium 3.8 mmol/L (3.5-5.1); Protein, Total 7.7 g/dL (6.4-8.2); Sodium Level 134 mmol/L (136-145)
[2023-04-23 18:23] LABS: Differential Indicated SCAN CRITERIA MET
[2023-04-23 18:51] LABS: Anisocytosis RARE; Macrocytosis RARE; Platelet Estimate ADEQUATE (ADEQ); Red Cell Morphology N CHROM NORMAL (NORM C&C)
[2023-04-24 12:33] LABS: Pathologist Review Reviewed
== END | disposition home or self-care (01) ==
LOC: BFHLAB 16:23
PROVIDERS: PCP Family Medicine; Referring Provider Family Medicine; Visit Provider Family Medicine
DX: K57.92 Diverticulitis of intestine, part unspecified, without perforation or abscess without bleeding (principal)
CPT/HCPCS: 36415; 80053; 83690; 85025

== ENCOUNTER → 2023-04-24 | Outpatient (CLI) | payer MEDICARE, SELFPAY ==
--- NOTE | 2023-04-24 13:40 | CT_ITS ---
STUDY: CT ABDOMEN AND PELVIS WITH AND WITHOUT CONTRAST REASON FOR EXAM: Male, 68 years old. PANCREATITIS. One week history of abdominal pain. RADIATION DOSAGE (If Supplied By Facility): CTDIvol = ( 16.61 ) mGy, DLP = ( 2437.72 ) mGycm TECHNIQUE: Transaxial images were obtained from the dome of the diaphragm to the symphysis pubis with oral contrast. Oral and amp; IV Gastrografin and amp; 100mL Isovue-300 was administered. Sagittal and coronal images were reconstructed. Individualized dose optimization techniques were used for this CT. COMPARISON: None. FINDINGS: The visualized lung bases are unremarkable. Coronary artery calcification. There is decreased attenuation of the liver consistent with steatosis. Normal gallbladder and extrahepatic biliary system. Normal spleen. Normal pancreas. Normal bilateral adrenal glands. 1.6 cm x 2.1 cm cyst in the lower pole of the right kidney. 3.8 cm x 3.7 cm left renal cyst. Normal visualized stomach. Normal small intestine. There are multiple colonic diverticula consistent with diverticulosis. The appendix is visualized and appears normal. There is scattered atherosclerotic calcification of the abdominal aorta, without a demonstrated aneurysm. Normal inferior vena cava. Normal retroperitoneum. Normal urinary bladder. There are prostatic calcifications. There is a moderate-sized umbilical hernia containing fat. The neck of the hernia measures 3.2 cm. There are degenerative changes of the visualized lumbar spine. Loss of the normal lumbar lordosis. CT/CT Abd/Pelvis W/WO Contrast IMPRESSION: Fatty infiltration of the liver. Moderate-sized umbilical hernia containing fat. Bilateral renal cysts. Electronically Signed: Ricardo Don MD at 14:09 EDT ,
== END | disposition home or self-care (01) ==
PROVIDERS: PCP Family Medicine; Referring Provider Family Medicine; Visit Provider Family Medicine
DX: K57.92 Diverticulitis of intestine, part unspecified, without perforation or abscess without bleeding (principal); R10.9 Unspecified abdominal pain; K85.90 Acute pancreatitis without necrosis or infection, unspecified
CPT/HCPCS: 74178; Q9967

== ENCOUNTER → 2023-04-25 | Outpatient (CLI) | payer MEDICARE, SELFPAY ==
[2023-04-25 15:24] LABS: Absolute Lymphocyte Count 2.96 X10^3/uL (0.83-4.51); Absolute Neutrophil Count 11.4 X10^3/uL (2.0-7.7); Basophil# 0.13 X10^3/uL; Basophil% 0.8 % (0-1); Eosinophil# 0.54 X10^3/uL; Eosinophils% 3.2 % (0-5); Hemoglobin 15.9 g/dL (13.0-16.5); Lymphocyte # 2.96 X10^3/ul (0.83-4.51); Lymphocyte % 17.5 % (19-41); Mean Corp Hgb Conc 33.1 g/dL (32-36); Mean Corpuscular Hgb 30.6 pg (27.0-32.0); Mean Corpuscular Volume 92.5 fL (80-94); Mean Platelet Vol. 9.7 fl (6.2-12.0); Monocyte# 1.37 X10^3/uL; Monocyte% 8.1 % (0-10); NRBC Flagged by Analyzer 0.2 % (0-5); Neutrophil # 11.35 X10^3/uL (2.7-7.7); Platelet Count 343 K/mm3 (150-450); RBC Distribution Width CV 13.9 % (11.6-14.6); RBC Distribution Width SD 46.5 fl (35.1-43.9); Red Blood Count 5.19 M/mm3 (4.6-6.2); White Blood Count 16.9 K/mm3 (4.4-11.0)
[2023-04-25 15:57] LABS: ALB/GLOB Ratio 0.9 RATIO (0.9-2.4); AST(SGOT) 25 U/L (15-37); Alanine Aminotransfer ALT/SGPT 53 U/L (16-61); Albumin, Serum 3.5 g/dL (3.2-5.0); Alkaline Phosphatase 43 U/L (45-117); Anion Gap 7 (5-15); BUN 23 mg/dL (7-18); BUN/Creat Ratio 26.9 RATIO (10-20); Calcium,Total 9.5 mg/dL (8.5-10.1); Chloride 102 mmol/L (98-107); Creatinine, Serum 0.85 mg/dL (0.70-1.30); EST Glomerular Filtration Rate 95 mL/min (>60); Est Glom Filt Rate - Afr Amer 115 mL/min (>60); Globulin 3.9 g/dL (2.2-4.2); Glucose 74 mg/dL (74-106); Lipase 167 U/L (13-75); Potassium 3.9 mmol/L (3.5-5.1); Protein, Total 7.4 g/dL (6.4-8.2); Sodium Level 136 mmol/L (136-145)
== END | disposition home or self-care (01) ==
LOC: BFHLAB 13:47
PROVIDERS: PCP Family Medicine; Referring Provider Family Medicine; Visit Provider Family Medicine
DX: K57.92 Diverticulitis of intestine, part unspecified, without perforation or abscess without bleeding (principal)
CPT/HCPCS: 36415; 80053; 83690; 85025

== ENCOUNTER → 2023-05-01 | Outpatient (CLI) | payer MEDICARE, SELFPAY ==
--- NOTE | 2023-05-01 08:44 | US_ITS ---
STUDY: ABDOMINAL ULTRASOUND - RIGHT UPPER QUADRANT REASON FOR VISIT: Male, 68 years old RUQ PAIN / POSS GALLSTONE PANCREATITIS TECHNIQUE: Ultrasound evaluation of the right upper quadrant was performed with real-time and static gallardo-scale imaging. TECHNICAL QUALITY: Limited. Examination limited due to a combination of factors including obesity and bowel gas. COMPARISON: CT scan 04/24/2023. FINDINGS: Liver: The liver measures 17.7 cm. There is increased echogenicity consistent with fatty infiltration. The bile ducts are within normal limits. There is hepatic color flow. The direction of portal flow is hepatopetal. There is no demonstrated mass lesion. Gallbladder: Normal distended gallbladder. The gallbladder wall measures 2 mm. There is a negative sonographic Oliveira''s sign. There is no pericholecystic fluid. There are no gallstones. Common Bile Duct (C.B.D.): The common bile duct measures 5 mm. Pancreas: Suboptimally visualized, grossly negative. Right Kidney: Normal size of the right kidney. The right kidney measures 12.8 cm. Normal renal cortex. The right cortex measures 2.0 cm. There is a 2.5 cm cyst. There is no right hydronephrosis. US/Abdomen Limited IMPRESSION: Limited as above. No definite acute or significant abnormality seen. Electronically Signed: Torsten Mandle MD at 19:13 EDT ,
== END | disposition home or self-care (01) ==
LOC: US 08:55
PROVIDERS: PCP Family Medicine; Referring Provider Family Medicine; Visit Provider Family Medicine
DX: K56.3 Gallstone ileus (principal); R10.32 Left lower quadrant pain
CPT/HCPCS: 76705

== ENCOUNTER → 2023-09-19 | Outpatient (CLI) | payer MEDICARE, SELFPAY ==
[2023-09-19 17:52] LABS: Vitamin B12 575 pg/mL (211-911)
[2023-09-19 18:15] LABS: Thyroid Stim Hormone (TSH) 3.86 uIU/mL (0.358-3.74)
[2023-09-20 14:30] LABS: Free T3 2.5 pg/mL (2.18-3.98); T4 Free Direct 0.79 ng/dL (0.76-1.46)
[2023-09-23 16:08] LABS: Thyroglobulin Antibody < 1.0 IU/mL (0.0-0.9); Thyroid Peroxidase AB 20 IU/mL (0-34)
== END | disposition home or self-care (01) ==
LOC: BFHLAB 15:22
PROVIDERS: PCP Family Medicine; Visit Provider Family Medicine
DX: E03.9 Hypothyroidism, unspecified (principal); R53.83 Other fatigue
CPT/HCPCS: 36415; 82607; 84439; 84443; 84481; 86376; 86800

== ENCOUNTER → 2023-11-05 | Outpatient (CLI) | payer MEDICARE, SELFPAY ==
[2023-11-05 12:13] LABS: Absolute Lymphocyte Count 1.76 X10^3/uL (0.83-4.51); Absolute Neutrophil Count 4.8 X10^3/uL (2.0-7.7); Basophil% 1.2 % (0-1); Eosinophil# 0.61 X10^3/uL; Eosinophils% 7.5 % (0-5); Hematocrit 44.3 % (40-54); Hemoglobin 14.8 g/dL (13.0-16.5); Lymphocyte # 1.76 X10^3/ul (0.83-4.51); Lymphocyte % 21.8 % (19-41); Mean Corp Hgb Conc 33.4 g/dL (32-36); Mean Corpuscular Hgb 30.3 pg (27.0-32.0); Mean Corpuscular Volume 90.6 fL (80-94); Mean Platelet Vol. 9.7 fl (6.2-12.0); Monocyte# 0.78 X10^3/uL; Monocyte% 9.6 % (0-10); NRBC Flagged by Analyzer 0.2 % (0-5); Neutrophil # 4.79 X10^3/uL (2.7-7.7); Neutrophil % 59.3 % (47-70); Platelet Count 291 K/mm3 (150-450); RBC Distribution Width CV 13.8 % (11.6-14.6); RBC Distribution Width SD 45.6 fl (35.1-43.9); Red Blood Count 4.89 M/mm3 (4.6-6.2); White Blood Count 8.1 K/mm3 (4.4-11.0)
[2023-11-05 12:44] LABS: ALB/GLOB Ratio 1.2 RATIO (0.9-2.4); AST(SGOT) 24 U/L (15-37); Alanine Aminotransfer ALT/SGPT 28 U/L (16-61); Albumin, Serum 3.8 g/dL (3.2-5.0); Alkaline Phosphatase 51 U/L (45-117); Anion Gap 5 (5-15); BUN 21 mg/dL (7-18); BUN/Creat Ratio 24.1 RATIO (10-20); Calcium,Total 8.8 mg/dL (8.5-10.1); Chloride 107 mmol/L (98-107); Creatinine, Serum 0.87 mg/dL (0.70-1.30); EST Glomerular Filtration Rate 93 mL/min (>60); Est Glom Filt Rate - Afr Amer 112 mL/min (>60); Globulin 3.3 g/dL (2.2-4.2); Glucose 108 mg/dL (74-106); Potassium 3.9 mmol/L (3.5-5.1); Protein, Total 7.1 g/dL (6.4-8.2); Sodium Level 139 mmol/L (136-145); T4 Free Direct 0.93 ng/dL (0.76-1.46); Thyroid Stim Hormone (TSH) 2.65 uIU/mL (0.358-3.74)
== END | disposition home or self-care (01) ==
LOC: MTLAB 10:20
PROVIDERS: PCP Family Medicine; Referring Provider Family Medicine; Visit Provider Family Medicine
DX: Z01.818 Encounter for other preprocedural examination (principal); E03.9 Hypothyroidism, unspecified
CPT/HCPCS: 36415; 80053; 84439; 84443; 85025

== ENCOUNTER 2024-03-27 11:30 | Outpatient (RCR) | payer MEDICARE, SELFPAY ==
--- NOTE | 2024-01-06 14:59 | HP.PTEVAL_ITS ---
Patient's Visit Information Visit Information Visit Information: CAITLYN ARNOLD is a 68 year old M referred to Physical Therapy by Dr. Giacomo Stewart MD with a diagnosis of UNILATERAL PRIMARY OSTEOARTHRITIS KNEE. Date of Evaluation: 01/06/24 Physical Therapist: Caitlyn Kebede PT, Cert MDT, OCS Visit Plan Frequency: 2x /Week Duration: 12weeks Subjective Subjective: This 68 y/o male presents amru physical therapy with left TKA on Dec 31 2023 at [facility] DR Stewart. Patient had nerve block and was d/c next day. Patient d/c with WBAT LLE and exercises. Patient had knee pain many years . Patient had right knee arthroscopic x3. Patient medication oxycodone. Patient has difficulty sleeping. Patient [place] with ramp and 1 step. Patient has walk in with seat. Spouse assist with dressing . Spouse patient does cooking and cleaning. Patient had US in hospital to r/o DVT. Dr greco have concern with foot drop. Patient has difficulty with walking extended distance. 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 Patient condition affects QOL and function . Patient goals to return to work . Pain Left: Pain Intensity (Out of 10): 7 Pain Intensity Range: 10 Comment: knee Objective Objective: POSTURE: mild forward posture knee /hip flexed ,varus right knee NEURO: denies paresthesia/tingling SKIN: Silverdine dressing intact GIRTH PATELLA : 48.6 GIRTH 6 SUPRAPATTELLAR: 56.2 INISCION: well approximate AROM KNEE: supine knee flexion 5-70 degrees supine knee flexion MMT: peak force quads/hams 0 QUADS CONTRACTION: poor SLR: unable GAIT: ambulates with WBAT RLE with decrease stance time RLE STAIRS: NT Balance/Special Test Scores Lower Extremity Functional Score: 16 WOMAC Total Score: 75 WOMAC Percentatge: 21.8800 Goals Goal 1:: Patient to ambulate with no device with normal morenita with gait Goal Time Frame: 6-8 Weeks Goal 2:: Patient to improve AROM knee flexion 5 -110 degrees to improve stairs alernating Goal Time Frame: 6-8 Weeks Goal 3:: Patient to improve tig score less than 10 sec to improve gait Goal Time Frame: 4-6 Weeks Goal 4:: Patient to improve peak force quad/hams by 20-30 # strength 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 Goal Time Frame: 6-8 Weeks Goal 5:: Patient to improve WOMAC score by 15 points or> to improve function Goal Time Frame: 6-8 Weeks Goal 6:: Patient to improve LFES score by 5 -10 points to improve QOL and function Rehabilitation Potential Physical Therapy Diagnosis: This patient underwent s/p right TKA on 12/31/23 with impairments of decrease ROM ,weakness quads/hams ,decrease gait and stairs ,pain and edema thus will benefit from skilled PT Rehabilitation Potential: Good Anticipated Interventions Patient/Client Instruction: Educate patient on: Condition and Plan of Care For the Purpose of:: To decrease pain, To increase ROM, To improve muscle performance and motor function, To increase tolerance to activity/condition/position, To improve ability of physical actions for home/community/work/leisure, To improve health of tissue, To decrease soft tissue restriction, To increase flexibility/ROM, To improve endurance, To improve balance and To reduce risk of recurrence Therapeutic Exercise to Include: Strength training, Balance training, Flexibilty training, Gait and locomotor training, Passive ROM and Active ROM Comment: quads/hams/hip For the Purpose of:: To decrease pain, To decrease swelling/inflammation, To increase ROM, To improve nutrient delivery to tissue, To increase oxygenation perfusion, To improve muscle performance and motor function, To improve ability to perform ADL's, To increase tolerance to activity/condition/position, To improve performance and independence with ADL's, To improve ability of physical actions for home/community/work/leisure, To improve gait and locomotor functions, To improve health of tissue, To decrease soft tissue restriction, To increase flexibility/ROM, To improve endurance and To improve balance Text: Thank you for the opportunity to evaluate your patient. For Medicare and Medicare HMO plans, please review the plan of care and approve it. It will need to be FAXED BACK to us at [phone] for Medicare purposes. For Medicare only, by signing this I certify the plan of care. Please let me know if there are questions or concerns regarding this plan of care. Physician Signature: Date:
--- NOTE | 2024-01-14 11:40 | HP.PTEVAL_ITS ---
Patient's Visit Information Visit Information Visit Information: CAITLYN ARNOLD is a 68 year old M referred to Physical Therapy by Dr. Giacomo Stewart MD with a diagnosis of UNILATERAL PRIMARY OSTEOARTHRITIS KNEE. Date of Evaluation: 01/06/24 Physical Therapist: Caitlyn Kebede, PT, Cert MDT, OCS Visit Plan Frequency: 2x /Week Duration: 12weeks Plan: S/P LEFT TKA 12/31/23 FOCUS ROM INITIALLY PT INTERVENTIONS GAIT/STAIR TRAINING ,BALANCE PROGRAM, ,ROM ,FLEXIBILITY LEFT KNEE ,STRENGTHENING QUADS/HAMS/HIP AND ENDURANCE PROGRAM,CP Subjective Subjective: This 68 y/o male presents maru physical therapy with left TKA on Dec 31 2023 at [facility] DR Stewart. Patient had nerve block and was d/c next day. Patient d/c with WBAT LLE and exercises. Patient had knee pain many years . Patient had right knee arthroscopic x3. Patient medication oxycodone. Patient has difficulty sleeping. Patient lives in [place] with ramp and 1 step. Patient diana s walk in with seat. Spouse assist with dressing . Spouse patient does cooking and cleaning. Patient had US in hospital to r/o DVT. Dr greco have concern with foot drop. Patient has difficulty with walking extended distance. 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 Patient condition affects QOL and function . Patient goals to return to work . Pain Left: Pain Intensity (Out of 10): 7 Pain Intensity Range: 10 Comment: knee Objective Objective: POSTURE: mild forward posture knee /hip flexed ,varus right knee NEURO: denies paresthesia/tingling SKIN: Silverdine dressing intact GIRTH PATELLA : 48.6 GIRTH 6 SUPRAPATTELLAR: 56.2 INISCION: well approximate AROM KNEE: supine knee flexion 5-70 degrees supine knee flexion MMT: peak force quads/hams 0 QUADS CONTRACTION: poor SLR: unable GAIT: ambulates with WBAT RLE with decrease stance time RLE STAIRS: NT Balance/Special Test Scores Lower Extremity Functional Score: 16 WOMAC Total Score: 75 WOMAC Percentatge: 21.8800 Goals Goal 1:: Patient to ambulate with no device with normal morenita with gait Goal Time Frame: 6-8 Weeks Goal 2:: Patient to improve AROM knee flexion 5 -110 degrees to improve stairs alernating Goal Time Frame: 6-8 Weeks Goal 3:: Patient to improve tig score less than 10 sec to improve gait Goal Time Frame: 4-6 Weeks Goal 4:: Patient to improve peak force quad/hams by 20-30 # strength 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 Goal Time Frame: 6-8 Weeks Goal 5:: Patient to improve WOMAC score by 15 points or> to improve function Goal Time Frame: 6-8 Weeks Goal 6:: Patient to improve LFES score by 5 -10 points to improve QOL and function Rehabilitation Potential Physical Therapy Diagnosis: This patient underwent s/p right TKA on 12/31/23 with impairments of decrease ROM ,weakness quads/hams ,decrease gait and stairs ,pain and edema thus will benefit from skilled PT Rehabilitation Potential: Good Anticipated Interventions Patient/Client Instruction: Educate patient on: Condition and Plan of Care For the Purpose of:: To decrease pain, To increase ROM, To improve muscle performance and motor function, To increase tolerance to activity/condition/position, To improve ability of physical actions for home/community/work/leisure, To improve health of tissue, To decrease soft tissue restriction, To increase flexibility/ROM, To improve endurance, To improve balance and To reduce risk of recurrence Therapeutic Exercise to Include: Strength training, Balance training, Flexibilty training, Gait and locomotor training, Passive ROM and Active ROM Comment: quads/hams/hip For the Purpose of:: To decrease pain, To decrease swelling/inflammation, To increase ROM, To improve nutrient delivery to tissue, To increase oxygenation perfusion, To improve muscle performance and motor function, To improve ability to perform ADL's, To increase tolerance to activity/condition/position, To improve performance and independence with ADL's, To improve ability of physical actions for home/community/work/leisure, To improve gait and locomotor functions, To improve health of tissue, To decrease soft tissue restriction, To increase flexibility/ROM, To improve endurance and To improve balance Text: Thank you for the opportunity to evaluate your patient. For Medicare and Medicare HMO plans, please review the plan of care and approve it. It will need to be FAXED BACK to us at [phone] for Medicare purposes. For Medicare only, by signing this I certify the plan of care. Please let me know if there are questions or concerns regarding this plan of care. Physician Signature: Date:
--- NOTE | 2024-02-21 15:33 | HP.PTREVAL_ITS ---
Re-Evaluation Intro: Dr. Giacomo Stewart MD, It has been my pleasure to treat CAITLYN ARNOLD over the last 13 visits for UNILATERAL PRIMARY OSTEOARTHRITIS KNEE. Please see the progress note below for an update on the physical therapy plan of care! Subjective Subjective: Patient received new order to continue with PT to improve flexion . Also if not at appropriate ROM may need manipulation. In the mean time plan to have dynasplint to improve flexion Patient is working hard Objective Objective/Function: *Patient will benefit from more PT focus on ROM per MD patient progressing towards goals and continue to be appropriate * GAIT: ambulates with reciprocal pattern knee varus tibia EDEMA: improved min AROM: 3-112 degrees supine knee flexion MMT: ( peak force) quads 55.5 ,hamstrings 40.8 STAIRS: alternating with rail Plan Plan Plan: S/P LEFT TKA 12/31/23 FOCUS ROM PT INTERVENTIONS GAIT/STAIR TRAINING ,BALANCE PROGRAM, ,ROM ,FLEXIBILITY LEFT KNEE ,STRENGTHENING QUADS/HAMS/HIP AND ENDURANCE PROGRAM,CP Balance/Gait/Functional tests Balance/Special Test Scores Lower Extremity Functional Score: 49 TUG Test Time Seconds: 11.7 Tug Test: <20 sec.=mostly independent WOMAC Total Score: 75 WOMAC Percentage: 21.8800 Goals Goals Goal 1:: Patient to ambulate with no device with normal morenita with gait Goal Time Frame: 6-8 Weeks Goal Progress: Progressing Goal 2:: Patient to improve AROM knee flexion 0 -120 degrees to improve stairs alternating ( new goal) Goal Time Frame: 6-8 Weeks Goal 3:: Patient to improve tig score less than 10 sec to improve gait Goal Time Frame: 4-6 Weeks Goal Progress: Goal Met Goal 4:: Patient to improve peak force quad/hams by 10> # strength to 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) Goal Time Frame: 6-8 Weeks Goal 5:: Patient to improve WOMAC score by 15 points or> to improve function Goal Time Frame: 6-8 Weeks Goal Progress: Progressing Goal 6:: Patient to improve LFES score by 5 -10 points to improve QOL and function Goal Progress: Progressing Anticipated Interventions Anticipated Interventions Patient/Client Instruction: Educate patient on: Condition and Plan of Care For the Purpose of:: To decrease pain, To increase ROM, To improve muscle performance and motor function, To increase tolerance to activity/condition/position, To improve ability of physical actions for home/community/work/leisure, To improve health of tissue, To decrease soft tissue restriction, To increase flexibility/ROM, To improve endurance, To improve balance and To reduce risk of recurrence Therapeutic Exercise to Include: Strength training, Balance training, Flexibilty training, Gait and locomotor training, Passive ROM and Active ROM Comment: quads/hams/hip For the Purpose of:: To decrease pain, To decrease swelling/inflammation, To increase ROM, To improve nutrient delivery to tissue, To increase oxygenation perfusion, To improve muscle performance and motor function, To improve ability to perform ADL's, To increase tolerance to activity/condition/position, To improve performance and independence with ADL's, To improve ability of physical actions for home/community/work/leisure, To improve gait and locomotor f unctions, To improve health of tissue, To decrease soft tissue restriction, To increase flexibility/ROM, To improve endurance and To improve balance Re-Evaluation Ending Re-evaluation ending: Please do not hesitate to contact me at [phone] by phone or if you have questions or concerns regarding this new plan of care! Sincerely, Caitlyn Kebede, PT, Cert MDT, OCS
--- NOTE | 2024-06-12 11:55 | HP.PTDCSUM ---
Discharge Summary D/C summary: It has been my pleasure to treat CAITLYN ARNOLD referred by Dr. Giacomo Stewart MD, with the diagnosis of UNILATERAL PRIMARY OSTEOARTHRITIS KNEE for a total of 17 visit(s). Discharge Date: Please see the following information for a summary of their discharge status. Subjective Subjective: Difficulty with with ladders Been doing everything around house and working on car Pain Left: Pain Intensity (Out of 10): 0 L calf: Pain Intensity (Out of 10): 0 Overall Improvement % Improvement: 70 Objective Objective/Function: GAIT: ambulates with reciprocal pattern knee varus tibia EDEMA: ABSENT AROM: 3-110degrees supine knee flexion MMT: ( peak force) quads 56.5 ,hamstrings 50.8 STAIRS: alternating with rail Goals Goal 1:: Patient to ambulate with no device with normal morenita with gait Goal Progress: Goal Met Goal 2:: Patient to improve AROM knee flexion 0 -120 degrees to improve stairs alternating ( new goal) Goal Progress: Goal Met Goal 3:: Patient to improve tig score less than 10 sec to improve gait Goal Progress: Goal Met Goal 4:: Patient to improve peak force quad/hams by 10> # strength to 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) Goal Progress: Goal Met Goal 5:: Patient to improve WOMAC score by 15 points or> to improve function Goal Progress: Goal Met Goal 6:: Patient to improve LFES score by 5 -10 points to improve QOL and function Goal Progress: Goal Met Plan Plan: d/c D/C Information d/c sentence: If there are questions or concerns regarding this patient's physical therapy, please feel free to call me at [phone]. Thank you for the referral of this patient. Sincerely, Caitlyn Kebede, PT, Cert MDT, OCS Balance/Gait/Functional tests Balance/Special Test Scores Lower Extremity Functional Score: 60 TUG Test Time Seconds: 11.7 Tug Test: <20 sec.=mostly independent WOMAC Total Score: 4 WOMAC Percentage: 95.8400 Improvement % Improvement: 70
== END 2024-03-27 19:00 | disposition home or self-care (01) ==
LOC: PT 11:30
PROVIDERS: PCP Family Medicine; Referring Provider Orthopaedic Surgery; Visit Provider Orthopaedic Surgery
DX: M17.12 Unilateral primary osteoarthritis, left knee (principal)
CPT/HCPCS: 97110; 97140; 97162; 97530

== ENCOUNTER 2024-10-22 11:00 | Outpatient (RCR) | payer MEDICARE, SELFPAY ==
--- NOTE | 2024-09-17 14:02 | HP.OTEVAL ---
Patient's Visit Information Visit Information Visit Information: CAITLYN ARNOLD is a 69 year old M, referred to Occupational Therapy by DIANA Kwon, with a diagnosis of carpal tunnel syndrome L upper limb revision release. Date of Evaluation: 09/17/24 Occupational Therapist: Brooklynn Mccarty Subjective Subjective: This 69 year old male arrives with dx of L hand wrist revision carpal tunnel release; flexor tenosynovectomy complete 09/04/24. per order eval and treat and removal of remaining sutures when at least 2 weeks or incision well healed. Pt states his original surgery on the L hand was in 2020. states after this surgery no relief of symptoms. has also had his R hand complete and did see good results from this surgery. Pt is R hand dominant. pt currently limited in ROM as well as strength impacting performance in day to day tasks Pain L wrist: Current Pain Intensity: 3 Objective Objective/Observation: pt arrives with L brace on and stockinette. incision slightly gapped in some regions. white spot at wrist region of incision ROM Wrist: L 45/35 R 50/50 Opposition: unable to get to D5 ROM Comments: pt is 2.5 cm RF to palm unable to make composite fist at this time -- tightness felt in RF and MF with composite fist Strength Counter Professional: R 65# Lateral Pinch: R 15# Tripod Pinch: R 12# Strength Comments: to test L at a later date when able Edema Other: MCP B hands 24 cm Sensation Sensation Comments: semme 3.61 L hand at DIP Quick DASH-Disab of Arm,Shoulder& Hand Quick DASH Score: 52.2725 Goals Goal:100% adherence to protocol: Yes Goal:Daily scar massage when approriate: Yes Goal:ROM equal to unaffected hand: Yes Goal:Counter Professional/Pinch strength at least 75% of unaffected hand: Yes Goal:No pain with affected hand use: Yes Goal:Full use of affected hand in daily activities including work: Yes Goal:Improvement in sensation documented by [place]elynn monofiliaments: Yes Other Goal: pt will improve quick dash score (52.27) by 15 points or more in order to maximize I in day to day tasks Rehabilitation General Assessment: This 69 year old male presents s/p L hand revision of carpal tunnel release as well as flexor tenosynovectomy. Pt presents with pain with movement, decreased ROM as well as strength and decreased ability to perform ADL and IADL tasks preventing pt from performing day to day tasks. pt would benefit from OT services 1-2x a week for 4-6 weeks for return to PLOF and assure decrease risk for adhesion formation. Rehabilitation Potential: Good Anticipated Interventions Anticipated Interventions: A/AAROM/PROM, Strengthening, Scar Care, Triggerpoint Release, Wound Care, Fine Motor Coord/Ric, Education re Diagnosis and Home Program Visit Plan Frequency: 1-2x /Week Duration: 4-6 Weeks General Plan: AROM/AAROM/PROM strengthening once able wound management desensitization TEXT: Thank you for the opportunity to evaluate your patient. For Medicare and Medicare HMO plans, please review the plan of care and approve it. It will need to be FAXED BACK to us at [phone] for Medicare purposes. Please let me know if there are questions or concerns regarding this plan of care. Physician Signature: Date:
--- NOTE | 2024-10-13 12:42 | HP.OTREVAL ---
Re-Evaluation Intro: DIANA Kwon, It has been my pleasure to treat CAITLYN ARNOLD over the last 7 visits for carpal tunnel syndrome L upper limb revision release. Please see the progress note below for an update on the occupational therapy plan of care! Subjective Subjective: arrives doing well no new concerns . small open spot on wrist now healed and closed Objective Objective/Function: able to make full composite fist pt small opening on wrist now closed and healing progressed to strengthening on BTE this date clinical nursing coordinator strength L hand 40# R 50# lateral pinch L hand 10# R 15# tripod pinch L hand 5# R 8# Plan Plan Frequency: 1-2x /Week Duration: 4-6 Weeks Visits in this POC: 4-6 weeks (1-2x week) Plan: wound management AROM/AAROM/PROM strengthening once able Goals Goals Patient Goals: Regain Strength, Decrease Pain, Decrease Swelling/Stiffness, Use Hand/Wrist/Arm Normally Again, Decrease Tingling/Numbness, Increase ROM, Be More Independent in ADLS, Resume Former Household Responsibilities (Cooking,Cleaning,Yard, etc.) and Resume Hobbies Goal:100% adherence to protocol: Yes Goal:Daily scar massage when approriate: Yes Goal:ROM equal to unaffected hand: Yes Goal:Escort Car Driver/Pinch strength at least 75% of unaffected hand: Yes Goal:No pain with affected hand use: Yes Goal:Full use of affected hand in daily activities including work: Yes Goal:Improvement in sensation documented by [place]-Jocelynn monofiliaments: Yes Other Goal: pt will improve quick dash score (52.27) by 15 points or more in order to maximize I in day to day tasks Anticipated Interventions Anticipated Interventions Anticipated Interventions: A/AAROM/PROM, Strengthening, Scar Care, Triggerpoint Release, Wound Care, Fine Motor Coord/Ric, Education re Diagnosis and Home Program Re-Evaluation Ending Re-evaluation ending: Please do not hesitate to contact me at [phone] by phone or if you have questions or concerns regarding this new plan of care! Sincerely, Brooklynn Mccarty
--- NOTE | 2024-10-22 12:10 | HP.OTDCSUM_ITS ---
Discharge Summary D/C Summary: It has been my pleasure to treat CAITLYN ARNOLD under orders from DIANA Kwon, for the diagnosis of carpal tunnel syndrome L upper limb revision release for a total of 10 visit(s). Please see the following information for a summary of their discharge status. 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 L hand 45# R hand 50# lateral pinch L hand 13# R hand 15# tripod pinch L hand 8# R hand 10# Goals Patient Goals: Regain Strength, Decrease Pain, Decrease Swelling/Stiffness, Use Hand/Wrist/Arm Normally Again, Decrease Tingling/Numbness, Increase ROM, Be More Independent in ADLS, Resume Former Household Responsibilities (Cooking,Cleaning,Yard, etc.) and Resume Hobbies Goal:100% adherence to protocol: Yes Goal Progress: Goal Met Goal:Daily scar massage when approriate: Yes Goal Progress: Goal Met Goal:ROM equal to unaffected hand: Yes Goal Progress: Goal Met Goal:Agricultural Engineering Teacher/Pinch strength at least 75% of unaffected hand: Yes Goal Progress: Goal Met Goal:No pain with affected hand use: Yes Goal Progress: Goal Met Goal:Full use of affected hand in daily activities including work: Yes Goal Progress: Goal Met Goal:Improvement in sensation documented by [place] monofiliaments: Yes Goal Progress: Goal Met Other Goal: pt will improve quick dash score (52.27) by 15 points or more in order to maximize I in day to day tasks now GOAL MET Plan Plan: wound management AROM/AAROM/PROM strengthening once able D/C Information Discharge Comments: This 69 year old male seen for OT dx of carpal tunnel release revision. Pt seen for improved ROM, wound healing, improved strength decreased stiffness. last session this date due to achieving goals pt is in agreeance. d/c sentence: If there are questions or concerns regarding this patient's occupational therapy, please fell free to call me at [phone]. Thank you for the referral of this patient. Sincerely, Brooklynn Mccarty
--- NOTE | 2024-10-22 12:11 | HP.OT.NRP ---
Patient Information Patient Information: CAITLYN ARNOLD was seen in my office for initial evaluation on 09/17/24. The following Plan of Care was established for this patient: POC Established Initial Frequency: 1-2x /Week Initial Duration: 4-6 Weeks Plan: wound management AROM/AAROM/PROM strengthening once able Anticipated Interventions Anticipated Interventions: A/AAROM/PROM, Strengthening, Scar Care, Triggerpoint Release, Wound Care, Fine Motor Coord/Ric, Education re Diagnosis and Home Program Last Seen Last Seen: This patient was last seen in our office 10/22/24. Pertinent comments regarding their Occupational therapy will appear below: This 69 year old male seen for OT dx of carpal tunnel release revision. Pt seen for improved ROM, wound healing, improved strength decreased stiffness. last session this date due to achieving goals pt is in agreeance. At this point I will be discontinuing this patient from occupational therapy. I would be happy to see this patient again in the future if found appropriate by the physician. Thank you! Brooklynn Mccarty
== END 2024-10-22 19:00 | disposition home or self-care (01) ==
LOC: OT 11:00
PROVIDERS: PCP Family Medicine; Referring Provider Physician Assistant; Visit Provider Physician Assistant
DX: G56.02 Carpal tunnel syndrome, left upper limb (principal)
CPT/HCPCS: 97110; 97140; 97165; 97530

== ENCOUNTER → 2024-10-22 | Outpatient (CLI) | payer MEDICARE, SELFPAY ==
[2024-10-22 17:50] LABS: Absolute Lymphocyte Count 2.92 X10^3/uL (0.83-4.51); Basophil# 0.15 X10^3/uL; Basophil% 1.2 % (0-1); Eosinophil# 0.91 X10^3/uL; Eosinophils% 7.4 % (0-5); Hematocrit 45.5 % (40-54); Hemoglobin 15.3 g/dL (13.0-16.5); Lymphocyte # 2.92 X10^3/ul (0.83-4.51); Lymphocyte % 23.9 % (19-41); Mean Corp Hgb Conc 33.6 g/dL (32-36); Mean Corpuscular Hgb 30.7 pg (27.0-32.0); Mean Corpuscular Volume 91.4 fL (80-94); Monocyte# 1.14 X10^3/uL; Monocyte% 9.3 % (0-10); NRBC Flagged by Analyzer 0.2 % (0-5); Neutrophil # 7.02 X10^3/uL (2.7-7.7); Neutrophil % 57.5 % (47-70); Platelet Count 357 K/mm3 (150-450); RBC Distribution Width CV 14.6 % (11.6-14.6); RBC Distribution Width SD 48.4 fl (35.1-43.9); Red Blood Count 4.98 M/mm3 (4.6-6.2); White Blood Count 12.2 K/mm3 (4.4-11.0)
[2024-10-22 18:22] LABS: ALB/GLOB Ratio 1.3 RATIO (0.9-2.4); AST(SGOT) 30 U/L (15-37); Alanine Aminotransfer ALT/SGPT 37 U/L (16-61); Albumin, Serum 4.2 g/dL (3.2-5.0); Alkaline Phosphatase 59 U/L (45-117); Anion Gap 6 (5-15); BUN 21 mg/dL (7-18); BUN/Creat Ratio 21.7 RATIO (10-20); Calcium,Total 9.4 mg/dL (8.5-10.1); Chloride 103 mmol/L (98-107); Creatinine, Serum 0.97 mg/dL (0.70-1.30); EST Glomerular Filtration Rate 82 mL/min (>60); Est Glom Filt Rate - Afr Amer 99 mL/min (>60); Globulin 3.3 g/dL (2.2-4.2); Glucose 112 mg/dL (74-106); Potassium 4.1 mmol/L (3.5-5.1); Protein, Total 7.5 g/dL (6.4-8.2); Sodium Level 138 mmol/L (136-145); T4 Free Direct 0.88 ng/dL (0.76-1.46)
== END | disposition home or self-care (01) ==
LOC: BFHLAB 15:40
PROVIDERS: PCP Family Medicine; Referring Provider Family Medicine; Visit Provider Family Medicine
DX: E03.9 Hypothyroidism, unspecified (principal); I10 Essential (primary) hypertension
CPT/HCPCS: 36415; 80053; 84439; 84443; 85025

== ENCOUNTER 2024-12-12 03:10 | Emergency (ER) | payer MEDICARE, SELFPAY ==
[2024-12-12 03:11] VITALS: BP 149/83; PULSE 81; RESP 12; TEMP 36.4; O2SAT 100; BMI 35.5
--- NOTE | 2024-12-12 03:23 | EKG12_ITS ---
Test Reason : CP Blood Pressure : */* mmHG Vent. Rate : 76 BPM Atrial Rate : 76 BPM P-R Int : 206 ms QRS Dur : 90 ms QT Int : 394 ms P-R-T Axes : 63 13 45 degrees QTcB Int : 443 ms Normal sinus rhythm Normal ECG Confirmed by CHRISTIAN RODRIGUES, KEVON ([id number]), editor magazine [employer] ([id number]) on 12/14/2024 7:06:31 AM Referred By: BB Confirmed By: KEVON GONZALES MD
--- NOTE | 2024-12-12 03:24 | EDS_ITS ---
HPI History of Present Illness Chief Complaint: Chest Pain Informant: patient and spouse/S.O. Narrative Narrative: Patient presents about 3:15 AM for chest discomfort that felt like severe heartburn that woke him up from sleep. Improved with being upright, worse with lying down, but it did not go away with sitting up. He took a couple of Tums and it did not seem to help, which brought him to the ED. Now the pain is improved but still moderate. Denies any other associated symptoms such as dyspnea, nausea, vomiting, diaphoresis, palpitations, near-syncope or syncope. States he has had this several other times this past month, and they have responded to Tums each of the other times. He denies any leg swelling. No orthopnea. Other than the past month he has never had this issue. He had a stress test around 12 years ago that was negative. [facility] Medical History Carpal tunnel syndrome Knee pain Shoulder pain Stomach ulcer Arthritis Cervical spondylosis without myelopathy Home Medications ?Medication ?Instructions ?Recorded ?Last Taken ?Type aspirin 81 mg tablet 81 mg PO DAILY 06/04/2105/12 History doxylamine succinate 25 mg tablet 50 mg PO QHS sleep 0 06/04/21 Unknown History (Unisom (doxylamine)) naproxen 500 mg tablet 500 mg PO BID pain 06/04/21 06/03/21 History tramadol 50 mg tablet 50 mg PO Q6H PRN PRN Pain 06/01/21 History levothyroxine 50 mcg tablet 50 mcg PO DAILY 12/12/24 U nknown History lisinopril 10 mg tablet 10 mg PO DAILY 12/12/24 Unkn own History Allergy/AdvReac Type Severity Reaction Status Date / Time codeine Allergy Unknown Verified 12/12/24 03:20 Sulfa (Sulfonamide Allergy Unknown Verified 12/12/24 03:20 Antibiotics) morphine AdvReac Unknown 'sick to Verified 12/12/24 03:20 my stomach' Family History (Updated 08/28/21 @ 08:10 by Lashay Garcia) Father CAD (coronary artery disease) Heart disease Mother CVA (cerebral vascular accident) Other Cancer Surgical History History of shoulder surgery History of back surgery History of knee surgery Social History Smoking Status: Never smoker Electronic Cigarette Use: not used second hand exposure: No alcohol intake: current alcohol intake frequency: a few times a month Alcohol type: beer and wine substance use type: does not use ROS ROS ED Constitutional Constitutional ED: Denies chills or fever(s) Eyes Eyes: Denies change in vision or diplopia ENT ENT ED: Denies rhinorrhea or sore throat Cardiovascular Cardiovascular: Reports as per HPI and chest pain; Denies palpitations Respiratory/Chest Respiratory/Chest: Denies cough or dyspnea Gastrointestinal Gastrointestinal: Denies abdominal pain, diarrhea, nausea or vomiting Genitourinary Genitourinary ED: Denies dysuria or hematuria Musculoskeletal Musculoskeletal: Denies back pain or neck pain Integumentary Denies abscess or rash Neurologic Neurologic: Denies headache(s), paresthesias or weakness Psychiatric Psychiatric: Denies anxiety or suicidal thoughts EXAM Physical Exam Const Vital Signs: 12/12/24 03:11 12/12/24 03:18 12/12/24 03:50 Temperature 97.6 F L Temperature Source Oral Pulse Rate 81 Respiratory Rate 12 Respiratory Effort Normal Non-Labored Blood Pressure 149/83 H Blood Pressure Mean 105 Pulse Ox 100 97 Oxygen Delivery Method Room Air Room Air 12/12/24 04:10 12/12/24 04:26 12/12/24 05:00 Temperature 98.2 F Temperature Source Pulse Rate 65 70 83 Respiratory Rate 13 17 12 Respiratory Effort Blood Pressure 142/77 H 142/77 H 115/101 H Blood Pressure Mean 98 98 105 Pulse Ox 98 99 95 Oxygen Delivery Method Room Air Room Air Positive well nourished and well developed General Appearance ED: well developed and NAD HEENT Reports moist mucous membranes normocephalic and atraumatic Eyes PERRL and EOMs intact bilaterally Neck full ROM and supple Resp normal respiratory effort and clear to auscultation bilaterally Cardio regular rate, regular rhythm and no murmurs GI non-tender and non-distended Auscultation: normoactive bowel sounds Palpation: soft Back/Spine no CVA tenderness General Back: other FROM Extremity normal to inspection General Extremety ED: Negative for edema, pulses abnormal or tenderness General Extremity: Negative for edema or pulses abnormal Neuro oriented x3, CN's II-XII intact bilaterally and no sensory deficits noted Sensorium / Orientation: awake and alert Motor Exam: strength 5/5 throughout Skin no rashes or lesions noted and no wounds Heart Score History: Slightly/Non-Suspicious ECG: Normal Age: >/= 65 years Risk Factors: 1 or 2 Risk Factors Troponin: </= Normal Limit Score: 3 MDM MDM MDM Narrative Medical decision making narrative: Patient's EKG is normal. Two-view chest x-ray my interpretation is normal showing a normal mediastinum and no unilateral pulmonary acute abnormality. His labs are normal including his initial troponin. I think this is a low risk history for acute coronary syndrome/unstable angina, and I think if we repeated his troponin in 2 hours and the delta is negative, patient would be stable for discharge home close outpatient follow-up. He is amenable to that plan. In the meantime give him a GI cocktail; he states it seemed to fix everything and he felt a lot better. He also states at this time that he has been having some issues swallowing, with things feeling like they are getting hung up high in his esophagus/chest. That did not happen tonight. We discussed following up with GI for that, he states several family members have had to have esophageal dilatations for similar issues. His delta troponin is 0 after his second measurement returned the same as the initial. Patient is feeling well stable for discharge. Lab Data Attestation: I reviewed the patient's lab results. Labs: Laboratory Results - last 24 hr 12/12/24 12/12/24 03:18 05:19 WBC 11.3 H RBC 4.60 Hgb 14.2 Hct 41.6 MCV 90.4 MCH 30.9 MCHC 34.1 RDW Std Deviation 45.2 H RDW Coeff of Lisa 13.7 Plt Count 329 MPV 9.4 Immature Gran % (Auto) 0.600 Neut % (Auto) 43.1 L Lymph % (Auto) 28.7 Garvin % (Auto) 10.0 Eos % (Auto) 16.1 H Baso % (Auto) 1.5 H Absolute Neuts (auto) 4.9 Absolute Lymphs (auto) 3.23 Nucleated RBC % 0.2 Sodium 138 Potassium 3.8 Chloride 106 Carbon Dioxide 25.0 Anion Gap 7 BUN 18 Creatinine 0.98 Estim Creat Clear Calc 82.47 Est GFR (MDRD) Af Amer 98 Est GFR (MDRD) Non-Af 81 BUN/Creatinine Ratio 18.4 Glucose 125 H Calcium 9.2 Troponin I High Sens 11 11 Radiography Diagnostic Testing: Clinical Impression(s) from Imaging Studies Chest X-Ray 12/12/24 03:35 IMPRESSION: No acute cardiopulmonary process identified. Reading Location: [facility] Rhythm Strip Rhythm Strip: Sinus Rhythm Rate: 68 Ectopy: None EKG Initial EKG: Attestation: I personally reviewed and interpreted this EKG as follows: Interpretation: Sinus Rhythm and No Acute Injury Pattern Comments: Nml axis & intervals; nml EKG Discharge Plan Triage Chief Complaint: Chest Pain ED Provider: Omar Lomax Dx/Rx/DC Orders Clinical Impression: Non-cardiac chest pain Instructions: ED Chest Pain, Noncardiac Prescriptions: No Action naproxen 500 mg tablet 500 mg PO BID aspirin 81 mg Tablet 81 mg PO DAILY tramadol 50 mg tablet 50 mg PO Q6H PRN PRN (Reason: Pain) Patient Comments: take 1 to 2 tablets by mouth every 6 hours if needed for pain Unisom (doxylamine) 25 mg Tablet 50 mg PO QHS levothyroxine 50 mcg tablet 50 mcg PO DAILY lisinopril 10 mg tablet 10 mg PO DAILY Primary Care Provider: Krissy Cain Referrals: Krissy Cain MD [Primary Care Provider] - 1 Week Activity Restrictions/Additional Instructions: Consider taking a daily Prilosec, Prevacid, or Nexium for the next 2 weeks to see if it makes a difference. Print Language: Khmer Disposition Disposition: Home, Self Care
[2024-12-12 03:31] LABS: Absolute Lymphocyte Count 3.23 X10^3/uL (0.83-4.51); Absolute Neutrophil Count 4.9 X10^3/uL (2.0-7.7); Basophil# 0.17 X10^3/uL; Basophil% 1.5 % (0-1); Eosinophil# 1.81 X10^3/uL; Eosinophils% 16.1 % (0-5); Hematocrit 41.6 % (40-54); Hemoglobin 14.2 g/dL (13.0-16.5); Lymphocyte # 3.23 X10^3/ul (0.83-4.51); Lymphocyte % 28.7 % (19-41); Mean Corp Hgb Conc 34.1 g/dL (32-36); Mean Corpuscular Hgb 30.9 pg (27.0-32.0); Mean Corpuscular Volume 90.4 fL (80-94); Mean Platelet Vol. 9.4 fl (6.2-12.0); Monocyte# 1.13 X10^3/uL; NRBC Flagged by Analyzer 0.2 % (0-5); Neutrophil # 4.86 X10^3/uL (2.7-7.7); Neutrophil % 43.1 % (47-70); Platelet Count 329 K/mm3 (150-450); RBC Distribution Width CV 13.7 % (11.6-14.6); RBC Distribution Width SD 45.2 fl (35.1-43.9); White Blood Count 11.3 K/mm3 (4.4-11.0)
--- NOTE | 2024-12-12 03:35 | RAD_ITS ---
PROCEDURE: CHEST PA AND LATERAL REASON FOR EXAM: Sternal chest pain, radiating down both arms. TECHNIQUE: Frontal and lateral views of the chest. COMPARISON: None. FINDINGS: Lungs are well aerated. Trace atelectasis within the left lung base. No focal airspace consolidation, pneumothorax or pleural effusion is seen. Remaining lung markings otherwise appears clear. Heart size and great vessels are within normal limits. The visualized osseous thorax appears intact. Spondylotic changes involving the upper to mid thoracic spine. EKG wires overlie the chest. RAD/Chest PA and Lateral IMPRESSION: No acute cardiopulmonary process identified. Reading Location: [facility]
[2024-12-12] MEDS: Mag Hydrox/Al Hydrox/Simeth 30 ML UDC PO (03:48)
[2024-12-12] MEDS: Lidocaine 2% Viscous15 ML UDC 15 ML PO (03:48)
[2024-12-12 03:50] VITALS: O2SAT 97
[2024-12-12 03:51] LABS: Anion Gap 7 (5-15); BUN 18 mg/dL (7-18); BUN/Creat Ratio 18.4 RATIO (10-20); Calcium,Total 9.2 mg/dL (8.5-10.1); Chloride 106 mmol/L (98-107); Creatinine, Serum 0.98 mg/dL (0.70-1.30); EST Glomerular Filtration Rate 81 mL/min (>60); Est Glom Filt Rate - Afr Amer 98 mL/min (>60); Estimated Creatinine Clearance 82.47 ml/min; Glucose 125 mg/dL (74-106); Potassium 3.8 mmol/L (3.5-5.1); Sodium Level 138 mmol/L (136-145); Troponin-I HS (w/2H Reflex) 11 pg/mL (3.0-78.0)
[2024-12-12 04:10] VITALS: BP 142/77; PULSE 65; RESP 13; O2SAT 98
[2024-12-12] MEDS: Pantoprazole Sodium 40 MG Tablet PO (04:25)
[2024-12-12 04:26] VITALS: BP 142/77; PULSE 70; RESP 17; TEMP 36.8; O2SAT 99
[2024-12-12 05:00] VITALS: BP 115/101; PULSE 83; RESP 12; O2SAT 95
[2024-12-12 05:27] LABS: Reflex Troponin-HS? (from REC) Y
[2024-12-12 05:56] LABS: Troponin-I HS 11 pg/mL (3.0-78.0)
== END 2024-12-12 06:05 | disposition home or self-care (01) ==
PROVIDERS: Emergency Provider Emergency Medicine; PCP Family Medicine; Visit Provider Emergency Medicine
DX: R07.89 Other chest pain (principal)
CPT/HCPCS: 71046; 80048; 84484; 85025; 93005; 99284; A4216

== ENCOUNTER → 2025-02-03 | Outpatient (CLI) | payer MEDICARE, SELFPAY | END | disposition home or self-care (01) | PROVIDERS: PCP Family Medicine; Visit Provider Family Medicine | DX: E03.9 Hypothyroidism, unspecified (principal) | CPT/HCPCS: 36415; 84439; 84443 ==

== ENCOUNTER → 2025-06-24 | Outpatient (CLI) | payer MEDICARE, SELFPAY ==
--- OUTSIDE RECORDS SUMMARY | 2025-06-24 09:25 | XMS RPT_ITS | CCD ---
Author Organization [facility] ion [facility] Care Team Providers Care Info Analyst Name Role Phone KELSY ALCALAFER Referring Unavailable WALLY GAN Primary Care Unavailable Ant RODRIGUES, Dr. Rey Primary Care Provider [phone] Nohemy Moore Attending Provider Nohemy Moore Referring Provider Dr. Krissy Cain MD Attending Provider Dr. Krissy Cain MD Referring Provider Dr. Omar Lomax MD Attending Provider Dr. Omar Lomax MD Emergency Provider Krissy Cain Attending Unavailable Krissy Cain Primary Care Unavailable Omar Lomax Attending Unavailable Krissy Cain Primary Care Unavailable Krissy Cain Attending Unavailable Krissy Cain Primary Care Unavailable Krissy Cain Attending Unavailable Krissy Cain Referring Unavailable Krissy Cain Primary Care Unavailable Krissy Cain Primary Care Unavailable Nohemy Razo Attending Unavailable Nohemy Razo Referring Unavailable Allergies Allergy Classification Reported Allergen(s) Allergy Type Date of Onset Reaction(s) Facility (7 sources) Codeine Drug Allergy 1 Unknown [facility] (7 sources) Morphine Drug Allergy 1 'sick to my stomach' [facility] (8 sources) Sulfonamides (Antibiotic); Translations: [Sulfa (Sulfonamide Antibiotics)] Allergy to substance 1 Unknown [facility] (1 source) Codeine Drug Allergy 5 [facility] (1 source) Morphine Drug Allergy 5 [facility] Medications Current Medications Medication Drug Class(es) Dates Sig (Normalized) Sig (Original) aspirin 81 mg oral tablet (7 sources) Platelet Aggregation Inhibitor, Nonsteroidal Anti-inflammatory Drug Start: 06-04-2021 take 1 tablet by mouth once daily Aspirin 81 mg Tablet Active 81 mg PO DAILY June 04, 2021 12:00am doxylamine succinate 25 mg oral tablet (7 sources) Start: 06-04-2021 Doxylamine Succinate (Unisom (Doxylamine)) 25 mg Tablet Active 50 mg PO AT BEDTIME June 04, 2021 12:00am levothyroxine sodium 0.05 mg oral tablet (1 source) l-Thyroxine Start: 12-12-2024 take 1 tablet by mouth once daily Levothyroxine 50 mcg tablet Active 50 ug PO DAILY December 12, 2024 1:00am lisinopril 10 mg oral tablet (1 source) Angiotensin Converting Enzyme Inhibitor Start: 12-12-2024 take 1 tablet by mouth once daily Lisinopril 10 mg tablet Active 10 mg PO DAILY December 12, 2024 1:00am naproxen 500 mg oral tablet (7 sources) Nonsteroidal Anti-inflammatory Drug Start: 06-04-2021 take 1 tablet by mouth twice daily Naproxen 500 mg tablet Active 500 mg PO TWICE A DAY June 04, 2021 12:00am traMADol hydrochloride 50 mg oral tablet (7 sources) Opioid Agonist Start: 06-04-2021 take 1 tablet by mouth every six hours as needed for pain Tramadol 50 mg tablet Active 50 mg PO EVERY 6 HOURS NEEDED as needed for Pain June 04, 2021 12:00am Problems Active Problems Problem Classification Problem Date Documented Date Episodic/Chronic Acute cerebrovascular disease (7 sources) Cerebrovascular accident; Translations: [Cerebral infarction, unspecified] 06-04-2021 Chronic Essential hypertension (7 sources) Hypertensive disorder; Translations: [Essential (primary) hypertension] 06-04-2021 Chronic Headache; including migraine (7 sources) Migraine; Translations: [Migraine, unspecified, not intractable, without status migrainosus] 11-24-2013 Chronic Syncope (14 sources) Near syncope; Translations: [Syncope and collapse] 09-16-2019 Episodic Thyroid disorders (8 sources) Hypothyroidism; Translations: [Hypothyroidism, unspecified] Onset: 02-08-2025 06-04-2021 Chronic Transient cerebral ischemia (7 sources) Transient global amnesia; 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 Viral infection (7 sources) Viral disease; Translations: [Viral infection, unspecified] 09-16-2019 Episodic Past or Other Problems Problem Classification Problem Date Documented Da te Episodic/Chronic Nonspecific chest pain (2 sources) Non-cardiac chest pain; Translations: [Other chest pain] Onset: 01-01-2025 12-20-2024 Episodic Results Test Name Value Interpretation Reference Range Facility T4 Free Directon 02-03-2025 T4 FREE DIRECT 1.30 ng/dL Normal 0.76-1.46 [facility] Comment on above: Performed By: #### L 506.0400, L501.9520 ####[facility] [address] [place], [place], [address] T4 freeOrdered By: Krissy burgos on 02-03-2025 Free T4 [Mass/Vol] 1.30 ng/dL 0.76-1.46 [facility] TSH DL <= 0.005 mIU/L QnOrde red By: Krissy Cain on 02-03-2025 Thyroid Stimulating Hormone (TSH) 1.840 uIU/mL 0.300-4.20 0 [facility] Thyroid Stim Hormone (TSH)on 02-03-2025 TSH 1.840 uIU/mL Normal 0.300-4.20 0 [facility] Comment on above: Performed By: #### L 506.0400, L501.9520 ####[facility] [address] [place], [address] 12 Lead EKGon 12-12-2024 12 Lead EKG [facility] Cardiovascular Services [address] [place] [address] 12 Lead EKG 12/12/24 0312 MR#: [id number] Acct: [id number] Name: CAITLYN BELL Rep #: [id number] : 1955 69 From: Willie Cunningham MD Attending Dr: Status: DEP ER Ordering Dr: Omar Lomax MD Date: 12/12/24 Location: ED Sex: M C Admitted: Test Reason : CP Blood Pressure : */* mmHG Vent. Rate : 76 BPM Atrial Rate : 76 BPM P-R Int : 206 ms QRS Dur : 90 ms QT Int : 394 ms P-R-T Axes : 63 13 45 degrees QTcB Int : 443 ms Normal sinus rhythm Normal ECG Confirmed by CHRISTIAN RODRIGUES, WILLIE ([id number]), design editor ROSAURA GREER ([id number]) on 12/14/2024 7:06:31 AM Referred By: BB Confirmed By: WILLIE CUNNINGHAM MD 12/14/24 0706 Date Willie Cunningham MD CC: Dr. Omar Lomax MD; Dr. Krissy Cain MD Signed Normal [facility] Absolute neutrophil countOrd ered By: Omar Lomax on 12-12-2024 Neutrophils (Bld) [#/Vol] 4.9 10*3/uL 2.0-7.7 [facility] Basic Metabolic Profile (BMP )on 12-12-2024 BUN/CRE 18.4 RATIO Normal 10-20 [facility] Comment on above: Performed By: #### L 501.5425, L500.2500, L100.0100 #### [facility] [address] [place], [address] CA,Total 9.2 mg/dL Normal 8.5-10.1 [facility] Comment on above: Performed By: #### L 501.5425, L500.2500, L100.0100 #### [facility] [address] [place], [address] Chloride [Moles/Vol] 106 mmol/L Normal 98-107 [facility] Comment on above: Performed By: #### L 501.5425, L500.2500, L100.0100 #### [facility] [address] [place], [address] CO2 [Moles/Vol] 25.0 mmol/L Normal 21.0-32.0 [facility] Comment on above: Performed By: #### L 501.5425, L500.2500, L100.0100 #### [facility] [address] [place], [address] Creatinine [Mass/Vol] 0.98 mg/dL Normal 0.70-1.30 [facility] Comment on above: Result Comment: The validity of the calculated GFR GFRAA in patients over 70 years has not been determined. Clinical correlation is essential. Performed By: #### L 501.5425, L500.2500, L100.0100 #### [facility] [address] [place], [address] ECRCL 82.47 ml/min Normal [facility] Comment on above: Performed By: #### L 501.5425, L500.2500, L100.0100 #### [facility] [address] [place], [address] EST GFR - AA 98 mL/min Normal >60 [facility] Comment on above: Result Comment: Afri can Zambian GFR Calc Performed By: #### L 501.5425, L500.2500, L100.0100 #### [facility] [address] [place], [address] GAP 7 Normal 5-15 [facility] Comment on above: Performed By: #### L 501.5425, L500.2500, L100.0100 #### [facility] [address] [place], [address] GFR/1.73 sq M.predicted among non-blacks MDRD (S/P/Bld) [Vol rate/Area] 81 mL/min/{1.73_m2} Normal >60 [facility] Comment on above: Result Comment: Non- GFR Calc Performed By: #### L 501.5425, L500.2500, L100.0100 #### [facility] [address] [place], [address] Glucose [Mass/Vol] 125 mg/dL High 74-106 [facility] Comment on above: Result Comment: Fast ing Glucose result from 100 to 125 mg/dL suggests IMPAIRED HOMEOSTASIS per A.D.A. criteria. Performed By: #### L 501.5425, L500.2500, L100.0100 #### [facility] [address] [place], [address] Potassium [Moles/Vol] 3.8 mmol/L Normal 3.5-5.1 [facility] Comment on above: Performed By: #### L 501.5425, L500.2500, L100.0100 #### [facility] [address] [place], [address] Sodium [Moles/Vol] 138 mmol/L Normal 136-145 [facility] Comment on above: Performed By: #### L 501.5425, L500.2500, L100.0100 #### [facility] [address] [place], [address] Urea nitrogen [Mass/Vol] 18 mg/dL Normal 7-18 [facility] Comment on above: Performed By: #### L 501.5425, L500.2500, L100.0100 #### [facility] [address] [place], [address] Basophil percentageOrdered B y: Omar Lomax on 12-12-2024 Basophils/100 WBC (Bld) 1.5 % High 0-1 [facility] Blood urea nitrogen (BUN)/cr eatinine ratioOrdered By: Omar Lomax on 12-12-2024 Urea nitrogen/Creatinine [Mass ratio] 18.4 mg/mg 10-20 [facility] CBC W/Diff, Automatedon - Absolute Lymph 3.23 X10 3/uL Normal 0.83-4.51 [facility] Comment on above: Performed By: #### L 501.5425, L500.2500, L100.0100 #### [facility] [address] [place], [address] Absolute Neut 4.9 X10 3/uL Normal 2.0-7.7 [facility] Comment on above: Performed By: #### L 501.5425, L500.2500, L100.0100 #### [facility] [address] [place], [address] Basophils/100 WBC (Bld) 1.5 % High 0-1 [facility] Comment on above: Performed By: #### L 501.5425, L500.2500, L100.0100 #### [facility] [address] [place], [address] Eosinophils/100 WBC (Bld) 16.1 % High 0-5 [facility] Comment on above: Performed By: #### L 501.5425, L500.2500, L100.0100 #### [facility] [address] [place], [address] Erythrocyte distribution width (RBC) [Ratio] 13.7 % Normal 11.6-14.6 [facility] Comment on above: Performed By: #### L 501.5425, L500.2500, L100.0100 #### [facility] [address] [place], [address] Hematocrit (Bld) [Volume fraction] 41.6 % Normal 40-54 [facility] Comment on above: Performed By: #### L 501.5425, L500.2500, L100.0100 #### [facility] [address] [place], [address] Hemoglobin (Bld) [Mass/Vol] 14.2 g/dL Normal 13.0-16.5 [facility] Comment on above: Performed By: #### L 501.5425, L500.2500, L100.0100 #### [facility] [address] [place], [address] IG% 0.600 Normal 0.0-0.9 [facility] Comment on above: Result Comment: IG% - Immature Granulocytes (promyelocytes, myelocytes and metamyelocytes) > 1% indicates that a LEFT SHIFT is Present. Performed By: #### L 501.5425, L500.2500, L100.0100 #### [facility] [address] [place], [address] Lymphocytes/100 WBC (Bld) 28.7 % Normal 19-41 [facility] Comment on above: Performed By: #### L 501.5425, L500.2500, L100.0100 #### [facility] [address] [place], [address] MCH (RBC) [Entitic mass] 30.9 pg Normal 27.0-32.0 [facility] Comment on above: Performed By: #### L 501.5425, L500.2500, L100.0100 #### [facility] [address] [place], [address] MCHC (RBC) [Mass/Vol] 34.1 g/dL Normal 32-36 [facility] Comment on above: Performed By: #### L 501.5425, L500.2500, L100.0100 #### [facility] [address] [place], [address] MCV (RBC) [Entitic vol] 90.4 fL Normal 80-94 [facility] Comment on above: Performed By: #### L 501.5425, L500.2500, L100.0100 #### [facility] [address] [place], [address] Monocytes/100 WBC (Bld) 10.0 % Normal 0-10 [facility] Comment on above: Performed By: #### L 501.5425, L500.2500, L100.0100 #### [facility] [address] [place], [address] Neutrophils/100 WBC (Bld) 43.1 % Low 47-70 [facility] Comment on above: Performed By: #### L 501.5425, L500.2500, L100.0100 #### [facility] [address] [place], [address] Nucleated RBC (Bld) [#/Vol] 0.2 10*3/uL Normal 0-5 [facility] Comment on above: Performed By: #### L 501.5425, L500.2500, L100.0100 #### [facility] [address] [place], [address] Platelet mean volume (Bld) [Entitic vol] 9.4 fL Normal 6.2-12.0 [facility] Comment on above: Performed By: #### L 501.5425, L500.2500, L100.0100 #### [facility] [address] [place], [address] Platelets (Bld) [#/Vol] 329 10*3/uL Normal 150-450 [facility] Comment on above: Performed By: #### L 501.5425, L500.2500, L100.0100 #### [facility] [address] [place], [address] RBC (Bld) [#/Vol] 4.60 10*6/uL Normal 4.6-6.2 [facility] Comment on above: Performed By: #### L 501.5425, L500.2500, L100.0100 #### [facility] [address] [place], [address] RDW SD 45.2 fl High 35.1-43.9 [facility] Comment on above: Performed By: #### L 501.5425, L500.2500, L100.0100 #### [facility] [address] [place], [address] WBC (Bld) [#/Vol] 11.3 10*3/uL High 4.4-11.0 [facility] Comment on above: Performed By: #### L 501.5425, L500.2500, L100.0100 #### [facility] [address] [place], [address] Carbon dioxide measurementOr dered By: Omar Lomax on 12-12-2024 CO2 [Moles/Vol] 25.0 mmol/L 21.0-32.0 [facility] Chest PA and Lateralon 12-12 Chest PA and Lateral [facility] Imaging Services [address] [place] [address] Chest PA and Lateral MR#: [id number] Acct: [id number] Name: CAITLYN BELL Rep #: [id number] : 1955 M 69 From: Ramsey Christianson DO PCP: Dr. Krissy Cain MD Status: [facility] ER Study: Chest PA and Lateral Date of Exam: 12/12/24 Exam# [id number] Ordering Dr: Omar Lomax MD PROCEDURE: CHEST PA AND LATERAL REASON FOR EXAM: Sternal chest pain, radiating down both arms. TECHNIQUE: Frontal and lateral views of the chest. COMPARISON: None. FINDINGS: Lungs are well aerated. Trace atelectasis within the left lung base. No focal airspace consolidation, pneumothorax or pleural effusion is seen. Remaining lung markings otherwise appears clear. Heart size and great vessels are within normal limits. The visualized osseous thorax appears intact. Spondylotic changes involving the upper to mid thoracic spine. EKG wires overlie the chest. RAD/Chest PA and Lateral IMPRESSION: No acute cardiopulmonary process identified. Reading Location: [facility] CC: Dr. Omar Lomax MD; Dr. 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 Krissy Cain MD Status:REG ER Location: ED HPI History of Present Illness Chief Complaint: Chest Pain Informant: patient and spouse/S.O. Narrative Narrative: Patient presents about 3:15 AM for chest discomfort that felt like severe heartburn that woke him up from sleep. Improved with being upright, worse with lying down, but it did not go away with sitting up. He took a couple of Tums and it did not seem to help, which brought him to the ED. Now the pain is improved but still moderate. Denies any other associated symptoms such as dyspnea, nausea, vomiting, diaphoresis, palpitations, near-syncope or syncope. States he has had this several other times this past month, and they have responded to Tums each of the other times. He denies any leg swelling. No orthopnea. Other than the past month he has never had this issue. He had a stress test around 12 years ago that was negative. [facility] Medical History Carpal tunnel syndrome Knee pain Shoulder pain Stomach ulcer Arthritis Cervical spondylosis without myelopathy Home Medications ???Medication ???Instructions ???Recorded ???Last Taken ???Type aspirin 81 mg tablet 81 mg PO DAILY 06/04/21 06/03/21 H istory doxylamine succinate 25 mg tablet 50 mg PO QHS sleep 06/04/21 Unkno wn History (Unisom (doxylamine)) naproxen 500 mg tablet 500 mg PO BID pain 06/04/21 History tramadol 50 mg tablet 50 mg PO Q6H PRN PRN Pain 06/04/21 06/01/21 History levothyroxine 50 mcg tablet 50 mcg PO DAILY 12/12/24 Unknown H istory lisinopril 10 mg tablet 10 mg PO DAILY 12/12/24 Unknown Hi story Allergy/AdvReac Type Severity Reaction Status Date / Time codeine Allergy Unknown Verified 12/12/24 03:20 Sulfa (Sulfonamide Allergy Unknown Verified 12/12/24 03:20 Antibiotics) morphine AdvReac Unknown 'sick to Verified 12/12/24 03:20 my stomach' Family History (Updated 08/28/21 @ 08:10 by Lashay Garcia) Father CAD (coronary artery disease) Heart disease Mother CVA (cerebral vascular accident) Other Cancer Surgical History History of shoulder surgery History of back surgery History of knee surgery Social History Smoking Status: Never smoker Electronic Cigarette Use: not used second hand exposure: No alcohol intake: current alcohol intake frequency: a few times a month Alcohol type: beer and wine substance use type: does not use ROS ROS ED Constitutional Constitutional ED: Denies chills or fever(s) Eyes Eyes: Denies change in vision or diplopia ENT ENT ED: Denies rhinorrhea or sore throat Cardiovascular Cardiovascular: Reports as per HPI and chest pain; Denies palpitations Respiratory/Chest Respiratory/Chest: Denies cough or dyspnea Gastrointestinal Gastrointestinal: Denies abdominal pain, diarrhea, nausea or vomiting Genitourinary Genitourinary ED: Denies dysuria or hematuria Musculoskeletal Musculoskeletal: Denies back pain or neck pain Integumentary Denies abscess or rash Neurologic Neurologic: Denies headache(s), paresthesias or weakness Psychiatric Psychiatric: Denies anxiety or suicidal thoughts EXAM Physical Exam Const Vital Signs: 12/12/24 03:11 12/12/24 03:18 12/12/24 03:50 Temperature 97.6 F L Temperature Source Oral Pulse Rate 81 Respiratory Rate 12 Respiratory Effort Normal Non-Labored Blood Pressure 149/83 H Blood Pressure Mean 105 Pulse Ox 100 97 Oxygen Delivery Method Room Air Room Air 12/12/24 04:10 12/12/24 04:26 12/12/24 05:00 Temperature 98.2 F Temperature Source Pulse Rate 65 70 83 Respiratory Rate 13 17 12 Respiratory Effort Blood Pressure 142/77 H 142/77 H 115/101 H Blood Pressure Mean 98 98 105 Pulse Ox 98 99 95 Oxygen Delivery Method Room Air Room Air Positive well nourished and well developed General Appearance ED: well developed and NAD HEENT Reports moist mucous membranes normocephalic and atraumatic Eyes PERRL and EOMs intact bilaterally Neck full ROM and supple Resp normal respiratory effort and clear to auscultation bilaterally Cardio regular rate, regular rhythm and no murmurs GI non-tender and non-distended Auscultation: normoactive bowel sounds Palpation: soft Back/Spine no CVA tenderness General Back: other FROM Extremity normal to inspection General Extremety ED: (more content not included)... Normal [facility] Eosinophil percentageOrdered By: Omar Lomax on 12-12-2024 Eosinophils/100 WBC (Bld) 16.1 % High 0-5 [facility] Erythrocyte distribution wid th ratioOrdered By: Omar Lomax on 12-12-2024 Erythrocyte distribution width (RBC) [Ratio] 13.7 % 11.6-14.6 [facility] Erythrocyte distribution wid th standard deviationOrdered By: Omar Lomax on 12-12-2024 Erythrocyte distribution width (RBC) [Entitic vol] 45.2 fL High 35.1-43.9 [facility] Estimated glomerular filtrat ion rate (GFR) AmericanOrdered By: Omar Lomax on 12-12-2024 Estimated GFR (MDRD) Amer 98 mL/min >60 [facility] Comment on above: GFR Calc Estimation of creatinine fay aranceOrdered By: Omar Lomax on 12-12-2024 Estimated Creatinine Clearance Calc 82.47 ml/min [facility] Glomerular filtration rate ( GFR) estimationOrdered By: Omar Lomax on 12-12-2024 Estimated GFR (MDRD) Non-Af Amer 81 mL/min >60 [facility] Comment on above: Non- GFR Calc Glucose measurementOrdered B y: Omar Lomax on 12-12-2024 Glucose [Mass/Vol] 125 mg/dL High 74-106 [facility] Comment on above: Fasting Glucose resu lt from 100 to 125 mg/dL suggests IMPAIRED HOMEOSTASIS per A.D.A. criteria. Hematocrit Auto (Bld) [Volum e fraction]Ordered By: Omar Lomax on 12-12-2024 Hematocrit (Bld) [Volume fraction] 41.6 % 40-54 [facility] Hemoglobin measurementOrdere d By: Omar Lomax on 12-12-2024 Hemoglobin (Bld) [Mass/Vol] 14.2 g/dL 13.0-16.5 [facility] Immature granulocytes/100 WB C Auto (Bld)Ordered By: Omar Lomax on 12-12-2024 Immature granulocytes/100 WBC (Bld) 0.600 % 0.0-0.9 [facility] Comment on above: IG% - Immature Granu locytes (promyelocytes, myelocytes and metamyelocytes) > 1% indicates that a LEFT SHIFT is Present. L501.4020on 12-12-2024 TROPONIN-I HS 11 pg/mL Normal 3.0-78.0 [facility] Comment on above: Result Comment: Plea se Note: New Test Units and Gender Specific Reference Ranges. For more information see Policy Stat Procedure [place] High Sensitivity Troponin (TNIH) and attachments. Performed By: #### L 501.4020 #### [facility] [address] [place], [address] L501.5425on 12-12-2024 TROPONIN-I HS 11 pg/mL Normal 3.0-78.0 [facility] Comment on above: Order Comment: 1 Y Result Comment: Plea se Note: New Test Units and Gender Specific Reference Ranges. For more information see Policy Stat Procedure [place] High Sensitivity Troponin (TNIH) and attachments. Performed By: #### L 501.5425, L500.2500, L100.0100 #### [facility] [address] [place], [address] Lymphocytes Auto (Unsp spec) [#/Vol]Ordered By: Omar Lomax on 12-12-2024 Lymphocytes (Bld) [#/Vol] 3.23 10*3/uL 0.83-4.51 [facility] Lymphocytes/100 WBC Auto (Un sp spec)Ordered By: Omar Lomax on 12-12-2024 Lymphocytes/100 WBC (Bld) 28.7 % 19-41 [facility] MCV (mean corpuscular volume ) determinationOrdered By: Omar Lomax on 12-12-2024 MCV (RBC) [Entitic vol] 90.4 fL 80-94 [facility] Mean corpuscular hemoglobin (MCH) determinationOrdered By: Omar Lomax on 12-12-2024 MCH (RBC) [Entitic mass] 30.9 pg 27.0-32.0 [facility] Mean corpuscular hemoglobin concentration (MCHC) determinationOrdered By: Omar Lomax on 12-12-2024 MCHC (RBC) [Mass/Vol] 34.1 g/dL 32-36 [facility] Mean platelet volume determi nationOrdered By: Omar Lomax on 12-12-2024 Platelet mean volume (Bld) [Entitic vol] 9.4 fL 6.2-12.0 [facility] Monocyte percentageOrdered B y: Omar Lomax on 12-12-2024 Monocytes/100 WBC (Bld) 10.0 % 0-10 [facility] Neutrophil percentageOrdered By: Omar Lomax on 12-12-2024 Neutrophils/100 WBC (Bld) 43.1 % Low 47-70 [facility] Nucleated red blood cell per centageOrdered By: Omar Lomax on 12-12-2024 Nucleated RBC/100 WBC (Bld) [Ratio] 0.2 % 0-5 [facility] Platelet countOrdered By: Ayan Lomax on 12-12-2024 Platelets (Bld) [#/Vol] 329 10*3/uL 150-450 [facility] Potassium measurementOrdered By: Omar Lomax on 12-12-2024 Potassium [Moles/Vol] 3.8 mmol/L 3.5-5.1 [facility] RBC Auto (Bld) [#/Vol]Ordere d By: Omar Lomax on 12-12-2024 RBC (Bld) [#/Vol] 4.60 10*6/uL 4.6-6.2 [facility] Serum anion gap measurementO rdered By: Omar Lomax on 12-12-2024 Anion gap [Moles/Vol] 7 mmol/L 5-15 [facility] Serum or plasma calcium tyrell urement (mass/volume)Ordered By: Omar Lomax on 12-12-2024 Calcium [Mass/Vol] 9.2 mg/dL 8.5-10.1 [facility] Serum or plasma creatinine m easurement (mass/volume)Ordered By: Omar Lomax on 12-12-2024 Creatinine [Mass/Vol] 0.98 mg/dL 0.70-1.30 [facility] Comment on above: The validity of the calculated GFR & GFRAA in patients over 70 years has not been determined. Clinical correlation is essential. Serum or plasma urea nitroge n measurement (mass/volume)Ordered By: Omar Lomax on 12-12-2024 Urea nitrogen [Mass/Vol] 18 mg/dL 7-18 [facility] Sodium levelOrdered By: Emmett Lomax on 12-12-2024 Sodium [Moles/Vol] 138 mmol/L 136-145 [facility] Troponin IOrdered By: Sammy Lomax on 12-12-2024 Troponin I High Sensitivity 11 pg/mL 3.0-78.0 [facility] Comment on above: Please Note: New Ana M t Units and Gender Specific Reference Ranges. For more information see Policy Stat Procedure [place] High Sensitivity Troponin (TNIH) and attachments. White blood cell (WBC) count Ordered By: Omar Lomax on 12-12-2024 WBC (Bld) [#/Vol] 11.3 10*3/uL High 4.4-11.0 [facility] Absolute neutrophil countOrd ered By: Krissy Cain on 10-22-2024 Neutrophils (Bld) [#/Vol] 7.0 10*3/uL 2.0-7.7 [facility] Albumin to globulin ratioOrd ered By: Krissy Cain on 10-22-2024 Albumin/Globulin [Mass ratio] 1.3 {ratio} 0.9-2.4 [facility] Basophil percentageOrdered B y: Krissy Cain on 10-22-2024 Basophils/100 WBC (Bld) 1.2 % High 0-1 [facility] Bilirubin, totalOrdered By: Krissy Cain on 10-22-2024 Bilirubin [Mass/Vol] 0.50 mg/dL 0.20-1.00 [facility] Comment on above: For patients on eltr ombopag therapy, use of Dimension [place] TBIL is not recommended. Blood urea nitrogen (BUN)/cr eatinine ratioOrdered By: Krissy Cain on 10-22-2024 Urea nitrogen/Creatinine [Mass ratio] 21.7 mg/mg High - [facility] CBC W/Diff, Automatedon 10-11 Absolute Lymph 2.92 X10 3/uL Normal 0.83-4.51 [facility] Comment on above: Performed By: #### L 100.0100, L501.9520, L500.4050, L506.0400 ####[facility] [address] [place], [address] Absolute Neut 7.0 X10 3/uL Normal 2.0-7.7 [facility] Comment on above: Performed By: #### L 100.0100, L501.9520, L500.4050, L506.0400 ####[facility] [address] [place], [address] Basophils/100 WBC (Bld) 1.2 % High 0-1 [facility] Comment on above: Performed By: #### L 100.0100, L501.9520, L500.4050, L506.0400 ####[facility] [address] [place], [address] Eosinophils/100 WBC (Bld) 7.4 % High 0-5 [facility] Comment on above: Performed By: #### L 100.0100, L501.9520, L500.4050, L506.0400 ####[facility] [address] [place], [address] Erythrocyte distribution width (RBC) [Ratio] 14.6 % Normal 11.6-14.6 [facility] Comment on above: Performed By: #### L 100.0100, L501.9520, L500.4050, L506.0400 ####[facility] [address] [place], [address] Hematocrit (Bld) [Volume fraction] 45.5 % Normal 40-54 [facility] Comment on above: Performed By: #### L 100.0100, L501.9520, L500.4050, L506.0400 ####[facility] [address] [place], [address] Hemoglobin (Bld) [Mass/Vol] 15.3 g/dL Normal 13.0-16.5 [facility] Comment on above: Performed By: #### L 100.0100, L501.9520, L500.4050, L506.0400 ####[facility] [address] [place], [address] IG% 0.700 Normal 0.0-0.9 [facility] Comment on above: Result Comment: IG% - Immature Granulocytes (promyelocytes, myelocytes and metamyelocytes) > 1% indicates that a LEFT SHIFT is Present. Performed By: #### L 100.0100, L501.9520, L500.4050, L506.0400 ####[facility] [address] [place], [address] Lymphocytes/100 WBC (Bld) 23.9 % Normal 19-41 [facility] Comment on above: Performed By: #### L 100.0100, L501.9520, L500.4050, L506.0400 ####[facility] [address] [place], [address] MCH (RBC) [Entitic mass] 30.7 pg Normal 27.0-32.0 [facility] Comment on above: Performed By: #### L 100.0100, L501.9520, L500.4050, L506.0400 ####[facility] [address] [place], [address] MCHC (RBC) [Mass/Vol] 33.6 g/dL Normal 32-36 [facility] Comment on above: Performed By: #### L 100.0100, L501.9520, L500.4050, L506.0400 ####[facility] [address] [place], [address] MCV (RBC) [Entitic vol] 91.4 fL Normal 80-94 [facility] Comment on above: Performed By: #### L 100.0100, L501.9520, L500.4050, L506.0400 ####[facility] [address] [place], [address] Monocytes/100 WBC (Bld) 9.3 % Normal 0-10 [facility] Comment on above: Performed By: #### L 100.0100, L501.9520, L500.4050, L506.0400 ####[facility] [address] [place], [address] Neutrophils/100 WBC (Bld) 57.5 % Normal 47-70 [facility] Comment on above: Performed By: #### L 100.0100, L501.9520, L500.4050, L506.0400 ####[facility] [address] [place], [address] Nucleated RBC (Bld) [#/Vol] 0.2 10*3/uL Normal 0-5 [facility] Comment on above: Performed By: #### L 100.0100, L501.9520, L500.4050, L506.0400 ####[facility] [address] [place], [address] Platelet mean volume (Bld) [Entitic vol] 10.0 fL Normal 6.2-12.0 [facility] Comment on above: Performed By: #### L 100.0100, L501.9520, L500.4050, L506.0400 ####[facility] [address] [place], [address] Platelets (Bld) [#/Vol] 357 10*3/uL Normal 150-450 [facility] Comment on above: Performed By: #### L 100.0100, L501.9520, L500.4050, L506.0400 ####[facility] [address] [place], [address] RBC (Bld) [#/Vol] 4.98 10*6/uL Normal 4.6-6.2 [facility] Comment on above: Performed By: #### L 100.0100, L501.9520, L500.4050, L506.0400 ####[facility] [address] [place], [address] RDW SD 48.4 fl High 35.1-43.9 [facility] Comment on above: Performed By: #### L 100.0100, L501.9520, L500.4050, L506.0400 ####[facility] [address] [place], [address] WBC (Bld) [#/Vol] 12.2 10*3/uL High 4.4-11.0 [facility] Comment on above: Performed By: #### L 100.0100, L501.9520, L500.4050, L506.0400 ####[facility] [address] [place], [address] Carbon dioxide measurementOr dered By: Krissy Cain on 10-22-2024 CO2 [Moles/Vol] 29.0 mmol/L 21.0-32.0 [facility] Chloride measurementOrdered By: Krissy Cain on 10-22-2024 Chloride [Moles/Vol] 103 mmol/L 98-107 [facility] Comprehensive Metabolic Prof ilon 10-22-2024 Albumin [Mass/Vol] 4.2 g/dL Normal 3.2-5.0 [facility] Comment on above: Performed By: #### L 100.0100, L501.9520, L500.4050, L506.0400 ####[facility] [address] [place], [address] Albumin/Globulin [Mass ratio] 1.3 {ratio} Normal 0.9-2.4 [facility] Comment on above: Performed By: #### L 100.0100, L501.9520, L500.4050, L506.0400 ####[facility] [address] [place], [address] ALK P 59 U/L Normal 45-117 [facility] Comment on above: Performed By: #### L 100.0100, L501.9520, L500.4050, L506.0400 ####[facility] [address] [place], [address] ALT [Catalytic activity/Vol] 37 U/L Normal 16-61 [facility] Comment on above: Performed By: #### L 100.0100, L501.9520, L500.4050, L506.0400 ####[facility] [address] [place], [address] AST [Catalytic activity/Vol] 30 U/L Normal 15-37 [facility] Comment on above: Result Comment: Slig ht Hemolysis, Result may be falsely increased. Performed By: #### L 100.0100, L501.9520, L500.4050, L506.0400 ####[facility] [address] [place], [address] Bilirubin [Mass/Vol] 0.50 mg/dL Normal 0.20-1.00 [facility] Comment on above: Result Comment: For patients on eltrombopag therapy, use of Dimension [place] TBIL is not recommended. Performed By: #### L 100.0100, L501.9520, L500.4050, L506.0400 ####[facility] [address] [place], [address] BUN/CRE 21.7 RATIO High 10-20 [facility] Comment on above: Performed By: #### L 100.0100, L501.9520, L500.4050, L506.0400 ####[facility] [address] [place], [address] CA,Total 9.4 mg/dL Normal 8.5-10.1 [facility] Comment on above: Performed By: #### L 100.0100, L501.9520, L500.4050, L506.0400 ####[facility] [address] [place], [address] Chloride [Moles/Vol] 103 mmol/L Normal 98-107 [facility] Comment on above: Performed By: #### L 100.0100, L501.9520, L500.4050, L506.0400 ####[facility] [address] [place], [address] CO2 [Moles/Vol] 29.0 mmol/L Normal 21.0-32.0 [facility] Comment on above: Performed By: #### L 100.0100, L501.9520, L500.4050, L506.0400 ####[facility] [address] [place], [address] Creatinine [Mass/Vol] 0.97 mg/dL Normal 0.70-1.30 [facility] Comment on above: Result Comment: The validity of the calculated GFR GFRAA in patients over 70 years has not been determined. Clinical correlation is essential. Performed By: #### L 100.0100, L501.9520, L500.4050, L506.0400 ####[facility] [address] [place], [address] EST GFR - AA 99 mL/min Normal >60 [facility] Comment on above: Result Comment: Afri can [place] GFR Calc Performed By: #### L 100.0100, L501.9520, L500.4050, L506.0400 ####[facility] [address] [place], [address] GAP 6 Normal 5-15 [facility] Comment on above: Performed By: #### L 100.0100, L501.9520, L500.4050, L506.0400 ####[facility] [address] [place], [address] GFR/1.73 sq M.predicted among non-blacks MDRD (S/P/Bld) [Vol rate/Area] 82 mL/min/{1.73_m2} Normal >60 [facility] Comment on above: Result Comment: Non- GFR Calc Performed By: #### L 100.0100, L501.9520, L500.4050, L506.0400 ####[facility] [address] [place], [address] Globulin (S) [Mass/Vol] 3.3 g/dL Normal 2.2-4.2 [facility] Comment on above: Performed By: #### L 100.0100, L501.9520, L500.4050, L506.0400 ####[facility] [address] [place], [address] Glucose [Mass/Vol] 112 mg/dL High 74-106 [facility] Comment on above: Result Comment: Fast ing Glucose result from 100 to 125 mg/dL suggests IMPAIRED HOMEOSTASIS per A.D.A. criteria. Performed By: #### L 100.0100, L501.9520, L500.4050, L506.0400 ####[facility] [address] [place], [address] Potassium [Moles/Vol] 4.1 mmol/L Normal 3.5-5.1 [facility] Comment on above: Result Comment: Slig ht Hemolysis, Result may be falsely increased. Performed By: #### L 100.0100, L501.9520, L500.4050, L506.0400 ####[facility] [address] [place], [address] Sodium [Moles/Vol] 138 mmol/L Normal 136-145 [facility] Comment on above: Performed By: #### L 100.0100, L501.9520, L500.4050, L506.0400 ####[facility] [address] [place], [address] T PROT 7.5 g/dL Normal 6.4-8.2 [facility] Comment on above: Performed By: #### L 100.0100, L501.9520, L500.4050, L506.0400 ####[facility] [address] [place], [address] Urea nitrogen [Mass/Vol] 21 mg/dL High 7-18 [facility] Comment on above: Performed By: #### L 100.0100, L501.9520, L500.4050, L506.0400 ####[facility] [address] [place], [address] Direct serum free thyroxine (FT4) measurementOrdered By: Krissy Cain on 10-22-2024 Free T4 [Mass/Vol] 0.88 ng/dL 0.76-1.46 [facility] Eosinophil percentageOrdered By: Krissy Cain on 10-22-2024 Eosinophils/100 WBC (Bld) 7.4 % High 0-5 [facility] Erythrocyte distribution wid th ratioOrdered By: Krissy Cain on 10-22-2024 Erythrocyte distribution width (RBC) [Ratio] 14.6 % 11.6-14.6 [facility] Erythrocyte distribution wid th standard deviationOrdered By: Krissy Cain on 10-22-2024 Erythrocyte distribution width (RBC) [Entitic vol] 48.4 fL High 35.1-43.9 [facility] Estimated glomerular filtrat ion rate (GFR) AmericanOrdered By: Krissy Cain on 10-22-2024 Estimated GFR (MDRD) Amer 99 mL/min >60 [facility] Comment on above: GFR Calc Glomerular filtration rate ( GFR) estimationOrdered By: Krissy Cain on 10-22-2024 Estimated GFR (MDRD) Non-Af Amer 82 mL/min >60 [facility] Comment on above: Non- GFR Calc Glucose measurementOrdered B y: Krissy Cain on 10-22-2024 Glucose [Mass/Vol] 112 mg/dL High 74-106 [facility] Comment on above: Fasting Glucose resu lt from 100 to 125 mg/dL suggests IMPAIRED HOMEOSTASIS per A.D.A. criteria. Hematocrit Auto (Bld) [Volum e fraction]Ordered By: Krissy Cain on 10-22-2024 Hematocrit (Bld) [Volume fraction] 45.5 % 40-54 [facility] Hemoglobin measurementOrdere d By: Krissy Cain on 10-22-2024 Hemoglobin (Bld) [Mass/Vol] 15.3 g/dL 13.0-16.5 [facility] Immature granulocytes/100 WB C Auto (Bld)Ordered By: Krissy Cain on 10-22-2024 Immature granulocytes/100 WBC (Bld) 0.700 % 0.0-0.9 [facility] Comment on above: IG% - Immature Granu locytes (promyelocytes, myelocytes and metamyelocytes) > 1% indicates that a LEFT SHIFT is Present. Laboratory - Chemistry and C hemistry - challengeOrdered By: Krissy Cain on 10-22-2024 AST [Catalytic activity/Vol] 30 U/L 15-37 [facility] Comment on above: Slight Hemolysis, Re sult may be falsely increased. Lymphocytes Auto (Unsp spec) [#/Vol]Ordered By: Krissy Cain on 10-22-2024 Lymphocytes (Bld) [#/Vol] 2.92 10*3/uL 0.83-4.51 [facility] Lymphocytes/100 WBC Auto (Un sp spec)Ordered By: Krissy Cain on 10-22-2024 Lymphocytes/100 WBC (Bld) 23.9 % 19-41 [facility] MCV (mean corpuscular volume ) determinationOrdered By: Krissy Cain on 10-22-2024 MCV (RBC) [Entitic vol] 91.4 fL 80-94 [facility] Mean corpuscular hemoglobin (MCH) determinationOrdered By: Krissy Cain on 10-22-2024 MCH (RBC) [Entitic mass] 30.7 pg 27.0-32.0 [facility] Mean corpuscular hemoglobin concentration (MCHC) determinationOrdered By: Krissy Cain on 10-22-2024 MCHC (RBC) [Mass/Vol] 33.6 g/dL 32-36 [facility] Mean platelet volume determi nationOrdered By: Krissy Cain on 10-22-2024 Platelet mean volume (Bld) [Entitic vol] 10.0 fL 6.2-12.0 [facility] Monocyte percentageOrdered B y: Krissy Cain on 10-22-2024 Monocytes/100 WBC (Bld) 9.3 % 0-10 [facility] Neutrophil percentageOrdered By: Krissy Cain on 10-22-2024 Neutrophils/100 WBC (Bld) 57.5 % 47-70 [facility] Nucleated red blood cell per centageOrdered By: Krissy Cain on 10-22-2024 Nucleated RBC/100 WBC (Bld) [Ratio] 0.2 % 0-5 [facility] OT D/C Summaryon 10-22-2024 [facility] [address] [place] [address] / REHABILITATION SERVICES DISCHARGE SUMMARY MR#: [id number] Acct: [id number] Name: CAITLYN BELL Rep #: [id number] : 1955 69 From: Brooklynn Mccarty Referring Dr.: DIANA Kwon Status: R EG RCR Eval Date: Discharge Date: Discharge Summary D/C Summary: It has been my pleasure to treat CAITLYN BELL under orders from DIANA Kwon, for the diagnosis of carpal tunnel syndrome L upper limb revision release for a total of 10 visit(s). Please see the following information for a summary of their discharge status. Overall Improvement % Improvement: 90 Objective Objective/Function: wrist 60/55 able to make full composite fist full supination semme risa monofilament now feeling 3.22 all digits director consumer strength L hand 45# R hand 50# lateral pinch L hand 13# R hand 15# tripod pinch L hand 8# R hand 10# Goals Patient Goals: Regain Strength, Decrease Pain, Decrease Swelling/Stiffness, Use Hand/Wrist/Arm Normally Again, Decrease Tingling/Numbness, Increase ROM, Be More Independent in ADLS, Resume Former Household Responsibilities (Cooking,Cleaning,Yard, etc.) and Resume Hobbies Goal:100% adherence to protocol: Yes Goal Progress: Goal Met Goal:Daily scar massage when approriate: Yes Goal Progress: Goal Met Goal:ROM equal to unaffected hand: Yes Goal Progress: Goal Met Goal:Business Analysis Specialist/Pinch strength at least 75% of unaffected hand: Yes Goal Progress: Goal Met Goal:No pain with affected hand use: Yes Goal Progress: Goal Met Goal:Full use of affected hand in daily activities including work: Yes Goal Progress: Goal Met Goal:Improvement in sensation documented by [place]-Risa monofiliaments: Yes Goal Progress: Goal Met Other Goal: pt will improve quick dash score (52.27) by 15 points or more in order to maximize I in day to day tasks now GOAL MET Plan Plan: wound management AROM/AAROM/PROM strengthening once able D/C Information Discharge Comments: This 69 year old male seen for OT dx of carpal tunnel release revision. Pt seen for improved ROM, wound healing, improved strength decreased stiffness. last session this date due to achieving goals pt is in agreeance. d/c sentence: If there are questions or concerns regarding this patient's occupational therapy, please fell free to call me at [phone]. Thank you for the referral of this patient. Sincerely, Brooklynn Mccarty 10/22/24 1211 CC: Dr. Krissy Cain MD; DIANA Kwon CK Signed Normal [facility] OT D/C of Non Returning Pton 10-22-2024 OT D/C of Non Returning Pt [facility] Occupational Therapy [facility] [address] [place] [address] / REHABILITATION SERVICES DISCHARGE SUMMARY MR#: [id number] Acct: [id number] Name: CAITLYN BELL Rep #: [id number] : 1955 69 From: Brooklynn Mccarty Referring Dr.: DIANA Kwon Status: R EG RCR Eval Date: Discharge Date: Patient Information Patient Information: CAITLYN BELL was seen in my office for initial evaluation on 09/17/24. The following Plan of Care was established for this patient: POC Established Initial Frequency: 1-2x /Week Initial Duration: 4-6 Weeks Plan: wound management AROM/AAROM/PROM strengthening once able Anticipated Interventions Anticipated Interventions: A/AAROM/PROM, Strengthening, Scar Care, Triggerpoint Release, Wound Care, Fine Motor Coord/Ric, Education re Diagnosis and Home Program Last Seen Last Seen: This patient was last seen in our office 10/22/24. Pertinent comments regarding their Occupational therapy will appear below: This 69 year old male seen for OT dx of carpal tunnel release revision. Pt seen for improved ROM, wound healing, improved strength decreased stiffness. last session this date due to achieving goals pt is in agreeance. At this point I will be discontinuing this patient from occupational therapy. I would be happy to see this patient again in the future if found appropriate by the physician. Thank you! Brooklynn Mccarty 10/22/24 1215 CC: Dr. Krissy Cain MD; DIANA Kwon CK Signed Normal [facility] Platelet countOrdered By: Jonathan Cain on 10-22-2024 Platelets (Bld) [#/Vol] 357 10*3/uL 150-450 [facility] Potassium measurementOrdered By: Krissy Cain on 10-22-2024 Potassium [Moles/Vol] 4.1 mmol/L 3.5-5.1 [facility] Comment on above: Slight Hemolysis, Re sult may be falsely increased. RBC Auto (Bld) [#/Vol]Ordere d By: Krissy Cain on 10-22-2024 RBC (Bld) [#/Vol] 4.98 10*6/uL 4.6-6.2 [facility] Serum anion gap measurementO rdered By: Krissy Cain on 10-22-2024 Anion gap [Moles/Vol] 6 mmol/L 5-15 [facility] Serum globulin measurementOr dered By: Krissy Cain on 10-22-2024 Globulin (S) [Mass/Vol] 3.3 g/dL 2.2-4.2 [facility] Serum or plasma alanine parisi otransferase (ALT) measurementOrdered By: Krissy Cain on 10-22-2024 ALT [Catalytic activity/Vol] 37 U/L 16-61 [facility] Serum or plasma albumin tyrell urement (mass/volume)Ordered By: Krissy Cain on 10-22-2024 Albumin [Mass/Vol] 4.2 g/dL 3.2-5.0 [facility] Serum or plasma alkaline rich sphatase measurementOrdered By: Krissy Cain on 10-22-2024 ALP [Catalytic activity/Vol] 59 U/L 45-117 [facility] Serum or plasma calcium tyrell urement (mass/volume)Ordered By: Krissy Cain on 10-22-2024 Calcium [Mass/Vol] 9.4 mg/dL 8.5-10.1 [facility] Serum or plasma creatinine m easurement (mass/volume)Ordered By: Krissy Cain on 10-22-2024 Creatinine [Mass/Vol] 0.97 mg/dL 0.70-1.30 [facility] Comment on above: The validity of the calculated GFR & GFRAA in patients over 70 years has not been determined. Clinical correlation is essential. Serum or plasma urea nitroge n measurement (mass/volume)Ordered By: Krissy Cain on 10-22-2024 Urea nitrogen [Mass/Vol] 21 mg/dL High 7-18 [facility] Sodium levelOrdered By: Selwyn Cain on 10-22-2024 Sodium [Moles/Vol] 138 mmol/L 136-145 [facility] T4 Free Directon 10-22-2024 T4 FREE DIRECT 0.88 ng/dL Normal 0.76-1.46 [facility] Comment on above: Performed By: #### L 100.0100, L501.9520, L500.4050, L506.0400 ####[facility] [address] [place], [place], [id number] TSH QnOrdered By: Krissy rojas on 10-22-2024 Thyroid Stimulating Hormone (TSH) 3.890 uIU/mL High 0.358-3.74 0 [facility] Thyroid Stim Hormone (TSH)on 10-22-2024 TSH 3.890 uIU/mL High 0.358-3.74 0 [facility] Comment on above: Performed By: #### L 100.0100, L501.9520, L500.4050, L506.0400 ####[facility] [address] [place], [place], [id number] Total proteinOrdered By: Basil Cain on 10-22-2024 Protein [Mass/Vol] 7.5 g/dL 6.4-8.2 [facility] White blood cell (WBC) count Ordered By: Krissy Cain on 10-22-2024 WBC (Bld) [#/Vol] 12.2 10*3/uL High 4.4-11.0 [facility] Re-Evalution OTon 10-13-2024 Re-Evalution OT [facility] Occupational Therapy [address] [place] [address] / REEVALUATION / MEDICARE RECERTIFICATION OCCUPATIONAL THERAPY MR#: [id number] Acct: [id number] Name: CAITLYN BELL Rep #: [id number] : 1955 69 From: Brooklynn Mccarty Referring Dr.: DIANA Kwon Status: R EG RCR Insurance: [employer] Eval Date: SELF PAY INSURANCE Re-Evaluation Intro: DIANA Kwon, It has been my pleasure to treat CAITLYN BELL over the last 7 visits for carpal tunnel syndrome L upper limb revision release. Please see the progress note below for an update on the occupational therapy plan of care! Subjective Subjective: arrives doing well no new concerns . small open spot on wrist now healed and closed Objective Objective/Function: able to make full composite fist pt small opening on wrist now closed and healing progressed to strengthening on BTE this date director consumer strength L hand 40# R 50# lateral pinch L hand 10# R 15# tripod pinch L hand 5# R 8# Plan Plan Frequency: 1-2x /Week Duration: 4-6 Weeks Visits in this POC: 4-6 weeks (1-2x week) Plan: wound management AROM/AAROM/PROM strengthening once able Goals Goals Patient Goals: Regain Strength, Decrease Pain, Decrease Swelling/Stiffness, Use Hand/Wrist/Arm Normally Again, Decrease Tingling/Numbness, Increase ROM, Be More Independent in ADLS, Resume Former Household Responsibilities (Cooking,Cleaning,Yard, etc.) and [employer] Goal:100% adherence to protocol: Yes Goal:Daily scar massage when approriate: Yes Goal:ROM equal to unaffected hand: Yes Goal:Business Analysis Specialist/Pinch strength at least 75% of unaffected hand: Yes Goal:No pain with affected hand use: Yes Goal:Full use of affected hand in daily activities including work: Yes Goal:Improvement in sensation documented by Austin-Risa monofiliaments: Yes Other Goal: pt will improve quick dash score (52.27) by 15 points or more in order to maximize I in day to day tasks Anticipated Interventions Anticipated Interventions Anticipated Interventions: A/AAROM/PROM, Strengthening, Scar Care, Triggerpoint Release, Wound Care, Fine Motor Coord/Ric, Education re Diagnosis and Home Program Re-Evaluation Ending Re-evaluation ending: Please do not hesitate to contact me at [phone] by phone or if you have questions or concerns regarding this new plan of care! Sincerely, Brooklynn Mccarty 10/13/24 1242 CC: Dr. Krissy Cain MD; DIANA Kwon CK Signed For Medicare only, by signing this I certify the plan of care. Physicians Signature Date Normal [facility] OT General Evaluationon 11-0 OT General Evaluation [facility] Occupational Therapy [facility] [address] [place] [address] / REHABILITATION SERVICES INITIAL EVALUATION MR#: [id number] Acct: [id number] Name: CAITLYN BELL Rep #: [id number] : [id number] From: Brooklnyn Mccarty Referring Dr.: DIANA Kwon Status: R EG RCR Insurance: [employer] Eval Date: SELF PAY INSURANCE Patient's Visit Information Visit Information Visit Information: CAITLYN BELL is a 69 year old M, referred to Occupational Therapy by DIANA Kwon, with a diagnosis of carpal tunnel syndrome L upper limb revision release. Date of Evaluation: 09/17/24 Occupational Therapist: Brooklynn Mccarty Subjective Subjective: This 69 year old male arrives with dx of L hand wrist revision carpal tunnel release; flexor tenosynovectomy complete 09/04/24. per order eval and treat and removal of remaining sutures when at least 2 weeks or incision well healed. Pt states his original surgery on the L hand was in 2020. states after this surgery no relief of symptoms. has also had his R hand complete and did see good results from this surgery. Pt is R hand dominant. pt currently limited in ROM as well as strength impacting performance in day to day tasks Pain L wrist: Current Pain Intensity: 3 Objective Objective/Observation: pt arrives with L brace on and stockinette. incision slightly gapped in some regions. white spot at wrist region of incision ROM Wrist: L 45/35 R 50/50 Opposition: unable to get to D5 ROM Comments: pt is 2.5 cm RF to palm unable to make composite fist at this time -- tightness felt in RF and MF with composite fist Strength Business Analysis Specialist: R 65# Lateral Pinch: R 15# Tripod Pinch: R 12# Strength Comments: to test L at a later date when able Edema Other: MCP B hands 24 cm Sensation Sensation Comments: semme 3.61 L hand at DIP Quick DASH-Disab of Arm,Shoulder Hand Quick DASH Score: 52.2725 Goals Goal:100% adherence to protocol: Yes Goal:Daily scar massage when approriate: Yes Goal:ROM equal to unaffected hand: Yes Goal:Business Analysis Specialist/Pinch strength at least 75% of unaffected hand: Yes Goal:No pain with affected hand use: Yes Goal:Full use of affected hand in daily activities including work: Yes Goal:Improvement in sensation documented by Austin-Risa monofiliaments: Yes Other Goal: pt will improve quick dash score (52.27) by 15 points or more in order to maximize I in day to day tasks Rehabilitation General Assessment: This 69 year old male presents s/p L hand revision of carpal tunnel release as well as flexor tenosynovectomy. Pt presents with pain with movement, decreased ROM as well as strength and decreased ability to perform ADL and IADL tasks preventing pt from performing day to day tasks. pt would benefit from OT services 1-2x a week for 4-6 weeks for return to PLOF and assure decrease risk for adhesion formation. Rehabilitation Potential: Good Anticipated Interventions Anticipated Interventions: A/AAROM/PROM, Strengthening, Scar Care, Triggerpoint Release, Wound Care, Fine Motor Coord/Ric, Education re Diagnosis and Home Program Visit Plan Frequency: 1-2x /Week Duration: 4-6 Weeks General Plan: AROM/AAROM/PROM strengthening once able wound management desensitization TEXT: Thank you for the opportunity to evaluate your patient. For Medicare and Medicare HMO plans, please review the plan of care and approve it. It will need to be FAXED BACK to us at [phone] for Medicare purposes. Please let me know if there are questions or concerns regarding this plan of care. Physician Signature: ___Date: 09/17/24 1402 CC: Dr. Krissy Cain MD; DIANA Kwon CK Signed For Medicare only, by signing this I certify the plan of care. Physicians Signature Date Normal [facility] Absolute lymphocyte countOrd ered By: Krissy Cain on 11-05-2023 Lymphocytes Auto (Unsp spec) [#/Vol] 1.76 10*3/uL 0.83-4.51 [facility] Basophil percentageOrdered B y: Krissy Cain on 11-05-2023 Basophils/100 WBC (Bld) 1.2 % 0-1 [facility] Bilirubin [Mass/Vol] 0.60 mg/dL 0.20-1.00 [facility] Comment on above: For patients on eltr ombopag therapy, use of Dimension [place] TBIL is not recommended. Chloride [Moles/Vol] 107 mmol/L 98-107 [facility] Eosinophils/100 WBC (Bld) 7.5 % 0-5 [facility] Glucose [Mass/Vol] 108 mg/dL 74-106 [facility] Comment on above: Fasting Glucose resu lt from 100 to 125 mg/dL suggests IMPAIRED HOMEOSTASIS per A.D.A. criteria. Neutrophils (Bld) [#/Vol] 4.8 10*3/uL 2.0-7.7 [facility] Neutrophils/100 WBC (Bld) 59.3 % 47-70 [facility] Potassium [Moles/Vol] 3.9 mmol/L 3.5-5.1 [facility] Protein [Mass/Vol] 7.1 g/dL 6.4-8.2 [facility] Sodium [Moles/Vol] 139 mmol/L 136-145 [facility] WBC (Bld) [#/Vol] 8.1 10*3/uL 4.4-11.0 [facility] Blood erythrocytes count (nu mber/volume)Ordered By: Krissy Cain on 11-05-2023 RBC (Bld) [#/Vol] 4.89 10*6/uL 4.6-6.2 [facility] Blood hemoglobin measurement (mass/volume)Ordered By: Krsisy Cain on 11-05-2023 Hemoglobin (Bld) [Mass/Vol] 14.8 g/dL 13.0-16.5 [facility] Blood lymphocytes/100 leukoc ytesOrdered By: Krissy Cain on 11-05-2023 Lymphocytes/100 WBC (Bld) 21.8 % 19-41 [facility] Blood monocytes/100 leukocyt esOrdered By: Krissy Cain on 11-05-2023 Monocytes/100 WBC (Bld) 9.6 % 0-10 [facility] Blood platelet mean volumeOr dered By: Krissy Cain on 11-05-2023 Platelet mean volume (Bld) [Entitic vol] 9.7 fL 6.2-12.0 [facility] Determination of erythrocyte mean corpuscular volume (MCV)Ordered By: Krissy Cain on 11-05-2023 MCV (RBC) [Entitic vol] 90.6 fL 80-94 [facility] Hematocrit Auto (Bld) [Volum e fraction]Ordered By: Krissy Cain on 11-05-2023 Hematocrit (Bld) [Volume fraction] 44.3 % 40-54 [facility] Laboratory - Chemistry and C hemistry - challengeOrdered By: Krissy Cain on 11-05-2023 ALP [Catalytic activity/Vol] 51 U/L 45-117 [facility] ALT [Catalytic activity/Vol] 28 U/L 16-61 [facility] CO2 [Moles/Vol] 27.0 mmol/L 21.0-32.0 [facility] Free T4 [Mass/Vol] 0.93 ng/dL 0.76-1.46 [facility] Globulin (S) [Mass/Vol] 3.3 g/dL 2.2-4.2 [facility] Urea nitrogen/Creatinine [Mass ratio] 24.1 mg/mg 10-20 [facility] Laboratory - Hematology and Cell countsOrdered By: Krissy Cain on 11-05-2023 Erythrocyte distribution width (RBC) [Entitic vol] 45.6 fL 35.1-43.9 [facility] Erythrocyte distribution width (RBC) [Ratio] 13.8 % 11.6-14.6 [facility] Immature granulocytes/100 WBC (Bld) 0.600 % 0.0-0.9 [facility] Comment on above: IG% - Immature Granu locytes (promyelocytes, myelocytes and metamyelocytes) > 1% indicates that a LEFT SHIFT is Present. MCH (RBC) [Entitic mass] 30.3 pg 27.0-32.0 [facility] Nucleated RBC/100 WBC (Bld) [Ratio] 0.2 % 0-5 [facility] MCHC Auto (RBC) [Mass/Vol]Or dered By: Krissy Cain on 11-05-2023 MCHC (RBC) [Mass/Vol] 33.4 g/dL 32-36 [facility] No Panel InformationOrdered By: Krissy Cain on 11-05-2023 Estimated GFR (MDRD) Amer 112 mL/min >60 [facility] Comment on above: GFR Calc Estimated GFR (MDRD) Non-Af Amer 93 mL/min >60 [facility] Comment on above: Non- GFR Calc Thyroid Stimulating Hormone (TSH) 2.65 uIU/mL 0.358-3.74 [facility] Platelets bldOrdered By: Basil Cain on 11-05-2023 Platelets (Bld) [#/Vol] 291 10*3/uL 150-450 [facility] Serum or plasma albumin tyrell urement (mass/volume)Ordered By: Krissy Cain on 11-05-2023 Albumin [Mass/Vol] 3.8 g/dL 3.2-5.0 [facility] Serum or plasma albumin/glob ulin mass ratioOrdered By: Krissy Cain on 11-05-2023 Albumin/Globulin [Mass ratio] 1.2 {ratio} 0.9-2.4 [facility] Serum or plasma calcium tyrell urement (mass/volume)Ordered By: Krissy Cain on 11-05-2023 Calcium [Mass/Vol] 8.8 mg/dL 8.5-10.1 [facility] Serum or plasma creatinine m easurement (mass/volume)Ordered By: Krissy Cain on 11-05-2023 Creatinine [Mass/Vol] 0.87 mg/dL 0.70-1.30 [facility] Comment on above: The validity of the calculated GFR & GFRAA in patients over 70 years has not been determined. Clinical correlation is essential. Serum or plasma urea nitroge n measurement (mass/volume)Ordered By: Krissy Cain on 11-05-2023 Urea nitrogen [Mass/Vol] 21 mg/dL 7-18 [facility] Thin prep Papanicolaou smear with manual screeningOrdered By: Krissy Cain on 11-05-2023 Thin prep Papanicolaou smear with manual screening 24 U/L 15-37 [facility] Thin prep Papanicolaou smear with manual screening 5 5-15 [facility] No Panel InformationOrdered By: Krissy Cain on 09-20-2023 Thyroglobulin Antibody < 1.0 IU/mL 0.0-0.9 [facility] Comment on above: Thyroglobulin Antibo dy measured by [employer] Enterprise SolutionsMethodologyPerformed at: CB - [facility] [address] [id number] Director: Lauro Parmar PhD, Phone: [phone] Serum or plasma thyroperoxid ase antibody assay (units/volume)Ordered By: Krissy Cain on 09-20-2023 TPO Ab Qn 20 [IU]/mL 0-34 [facility] Laboratory - Chemistry and C hemistry - challengeOrdered By: Krissy Cain on 09-19-2023 Cobalamin (Vitamin B12) [Mass/Vol] 575 pg/mL 211-911 [facility] Free T4 [Mass/Vol] 0.79 ng/dL 0.76-1.46 [facility] No Panel InformationOrdered By: Krissy Cain on 09-19-2023 Free Triiodothyronine (T3) pg/dL 2.5 pg/mL 2.18-3.98 [facility] Thyroid Stimulating Hormone (TSH) 3.86 uIU/mL 0.358-3.74 [facility] Absolute lymphocyte countOrd ered By: Dr. Cain on 04-25-2023 Lymphocytes Auto (Unsp spec) [#/Vol] 2.96 10*3/uL 0.83-4.51 [facility] Basophil percentageOrdered B y: Dr. Cain on 04-25-2023 Basophils/100 WBC (Bld) 0.8 % 0-1 [facility] Bilirubin [Mass/Vol] 0.60 mg/dL 0.20-1.00 [facility] Comment on above: For patients on eltr ombopag therapy, use of Dimension [place] TBIL is not recommended. Chloride [Moles/Vol] 102 mmol/L 98-107 [facility] Eosinophils/100 WBC (Bld) 3.2 % 0-5 [facility] Glucose [Mass/Vol] 74 mg/dL 74-106 [facility] Neutrophils (Bld) [#/Vol] 11.4 10*3/uL 2.0-7.7 [facility] Neutrophils/100 WBC (Bld) 67.0 % 47-70 [facility] Potassium [Moles/Vol] 3.9 mmol/L 3.5-5.1 [facility] Protein [Mass/Vol] 7.4 g/dL 6.4-8.2 [facility] Sodium [Moles/Vol] 136 mmol/L 136-145 [facility] WBC (Bld) [#/Vol] 16.9 10*3/uL 4.4-11.0 [facility] Blood erythrocytes count (nu mber/volume)Ordered By: Dr. Cain on 04-25-2023 RBC (Bld) [#/Vol] 5.19 10*6/uL 4.6-6.2 [facility] Blood hemoglobin measurement (mass/volume)Ordered By: Dr. Cain on 04-25-2023 Hemoglobin (Bld) [Mass/Vol] 15.9 g/dL 13.0-16.5 [facility] Blood lymphocytes/100 leukoc ytesOrdered By: Dr. Cain on 04-25-2023 Lymphocytes/100 WBC (Bld) 17.5 % 19-41 [facility] Blood monocytes/100 leukocyt esOrdered By: Dr. Cain on 04-25-2023 Monocytes/100 WBC (Bld) 8.1 % 0-10 [facility] Blood platelet mean volumeOr dered By: Dr. Cain on 04-25-2023 Platelet mean volume (Bld) [Entitic vol] 9.7 fL 6.2-12.0 [facility] Determination of erythrocyte mean corpuscular volume (MCV)Ordered By: Dr. Cain on 04-25-2023 MCV (RBC) [Entitic vol] 92.5 fL 80-94 [facility] Hematocrit Auto (Bld) [Volum e fraction]Ordered By: Dr. Cain on 04-25-2023 Hematocrit (Bld) [Volume fraction] 48.0 % 40-54 [facility] Laboratory - Chemistry and C hemistry - challengeOrdered By: Dr. Cain on 04-25-2023 ALP [Catalytic activity/Vol] 43 U/L 45-117 [facility] ALT [Catalytic activity/Vol] 53 U/L 16-61 [facility] CO2 [Moles/Vol] 27.0 mmol/L 21.0-32.0 [facility] Globulin (S) [Mass/Vol] 3.9 g/dL 2.2-4.2 [facility] Lipase [Catalytic activity/Vol] 167 U/L 13-75 [facility] Comment on above: Please note:LIPASE r evised reference range effective 23. New Lipase methodology. Expected to produce lower values than the previous assay method. NEW Reference Range: 13 - 75 U/L Urea nitrogen/Creatinine [Mass ratio] 26.9 mg/mg 10-20 [facility] Laboratory - Hematology and Cell countsOrdered By: Dr. Cain on 04-25-2023 Erythrocyte distribution width (RBC) [Entitic vol] 46.5 fL 35.1-43.9 [facility] Erythrocyte distribution width (RBC) [Ratio] 13.9 % 11.6-14.6 [facility] Immature granulocytes/100 WBC (Bld) 3.400 % 0.0-0.9 [facility] Comment on above: IG% - Immature Granu locytes (promyelocytes, myelocytes and metamyelocytes) > 1% indicates that a LEFT SHIFT is Present. MCH (RBC) [Entitic mass] 30.6 pg 27.0-32.0 [facility] Nucleated RBC/100 WBC (Bld) [Ratio] 0.2 % 0-5 [facility] MCHC Auto (RBC) [Mass/Vol]Or dered By: Dr. Cain on 04-25-2023 MCHC (RBC) [Mass/Vol] 33.1 g/dL 32-36 [facility] No Panel InformationOrdered By: Dr. Cain on 04-25-2023 Estimated GFR (MDRD) Amer 115 mL/min >60 [facility] Comment on above: GFR Calc Estimated GFR (MDRD) Non-Af Amer 95 mL/min >60 [facility] Comment on above: Non- GFR Calc Platelets bldOrdered By: Dr. Cain on 04-25-2023 Platelets (Bld) [#/Vol] 343 10*3/uL 150-450 [facility] Serum or plasma albumin tyrell urement (mass/volume)Ordered By: Dr. Cain on 04-25-2023 Albumin [Mass/Vol] 3.5 g/dL 3.2-5.0 [facility] Serum or plasma albumin/glob ulin mass ratioOrdered By: Dr. Cain on 04-25-2023 Albumin/Globulin [Mass ratio] 0.9 {ratio} 0.9-2.4 [facility] Serum or plasma calcium tyrell urement (mass/volume)Ordered By: Dr. Cain on 04-25-2023 Calcium [Mass/Vol] 9.5 mg/dL 8.5-10.1 [facility] Serum or plasma creatinine m easurement (mass/volume)Ordered By: Dr. Cain on 04-25-2023 Creatinine [Mass/Vol] 0.85 mg/dL 0.70-1.30 [facility] Comment on above: The validity of the calculated GFR & GFRAA in patients over 70 years has not been determined. Clinical correlation is essential. Serum or plasma urea nitroge n measurement (mass/volume)Ordered By: Dr. Cain on 04-25-2023 Urea nitrogen [Mass/Vol] 23 mg/dL 7-18 [facility] Thin prep Papanicolaou smear with manual screeningOrdered By: Dr. Cain on 04-25-2023 Thin prep Papanicolaou smear with manual screening 25 U/L 15-37 [facility] Thin prep Papanicolaou smear with manual screening 7 - [facility] Absolute lymphocyte countOrd ered By: Dr. Cain on 04-23-2023 Lymphocytes Auto (Unsp spec) [#/Vol] 3.08 10*3/uL 0.83-4.51 [facility] Basophil percentageOrdered B y: Dr. Cain on 04-23-2023 Basophils/100 WBC (Bld) 0.5 % 0-1 [facility] Bilirubin [Mass/Vol] 0.50 mg/dL 0.20-1.00 [facility] Comment on above: For patients on eltr ombopag therapy, use of Dimension [place] TBIL is not recommended. Chloride [Moles/Vol] 102 mmol/L 98-107 [facility] Eosinophils/100 WBC (Bld) 0.9 % 0-5 [facility] Glucose [Mass/Vol] 91 mg/dL 74-106 [facility] Neutrophils (Bld) [#/Vol] 10.5 10*3/uL 2.0-7.7 [facility] Neutrophils/100 WBC (Bld) 66.6 % 47-70 [facility] Potassium [Moles/Vol] 3.8 mmol/L 3.5-5.1 [facility] Protein [Mass/Vol] 7.7 g/dL 6.4-8.2 [facility] Sodium [Moles/Vol] 134 mmol/L 136-145 [facility] WBC (Bld) [#/Vol] 15.8 10*3/uL 4.4-11.0 [facility] Blood erythrocytes count (nu mber/volume)Ordered By: Dr. Cain on 04-23-2023 RBC (Bld) [#/Vol] 5.22 10*6/uL 4.6-6.2 [facility] Blood hemoglobin measurement (mass/volume)Ordered By: Dr. Cain on 04-23-2023 Hemoglobin (Bld) [Mass/Vol] 16.2 g/dL 13.0-16.5 [facility] Blood lymphocytes/100 leukoc ytesOrdered By: Dr. Cain on 04-23-2023 Lymphocytes/100 WBC (Bld) 19.5 % 19-41 [facility] Blood manual differential co mment interpretation (narrative result)Ordered By: Dr. Cain on 04-23-2023 Manual differential comment Mikael (Bld) [Interp] SEE COMMENT [facility] Comment on above: MONOCYTOSIS NOTED Blood monocytes/100 leukocyt esOrdered [address]: [address] Cain on 04-23-2023 Monocytes/100 WBC (Bld) 10.0 % 0-10 [facility] Blood platelet adequacy dete ction by light microscopyOrdered By: Dr. Cain on 04-23-2023 Platelets LM Ql (Bld) ADEQUATE ADEQ [facility] Blood platelet mean volumeOr dered By: Dr. Cain on 04-23-2023 Platelet mean volume (Bld) [Entitic vol] 9.6 fL 6.2-12.0 [facility] Determination of erythrocyte mean corpuscular volume (MCV)Ordered By: Dr. Cain on 04-23-2023 MCV (RBC) [Entitic vol] 91.4 fL 80-94 [facility] Hematocrit Auto (Bld) [Volum e fraction]Ordered By: Dr. Cain on 04-23-2023 Hematocrit (Bld) [Volume fraction] 47.7 % 40-54 [facility] Laboratory - Chemistry and C hemistry - challengeOrdered By: Dr. Cain on 04-23-2023 ALP [Catalytic activity/Vol] 45 U/L 45-117 [facility] ALT [Catalytic activity/Vol] 69 U/L 16-61 [facility] CO2 [Moles/Vol] 25.0 mmol/L 21.0-32.0 [facility] Globulin (S) [Mass/Vol] 4.0 g/dL 2.2-4.2 [facility] Lipase [Catalytic activity/Vol] 428 U/L 13-75 [facility] Comment on above: Please note:LIPASE r evised reference range effective 23. New Lipase methodology. Expected to produce lower values than the previous assay method. NEW Reference Range: 13 - 75 U/L Urea nitrogen/Creatinine [Mass ratio] 32.5 mg/mg 10-20 [facility] Laboratory - Hematology and Cell countsOrdered By: Dr. Cain on 04-23-2023 Anisocytosis Ql (Bld) [facility] Erythrocyte distribution width (RBC) [Entitic vol] 46.5 fL 35.1-43.9 [facility] Erythrocyte distribution width (RBC) [Ratio] 13.9 % 11.6-14.6 [facility] Immature granulocytes/100 WBC (Bld) 2.500 % 0.0-0.9 [facility] Comment on above: IG% - Immature Granu locytes (promyelocytes, myelocytes and metamyelocytes) > 1% indicates that a LEFT SHIFT is Present. MCH (RBC) [Entitic mass] 31.0 pg 27.0-32.0 [facility] Nucleated RBC/100 WBC (Bld) [Ratio] 0.1 % 0-5 [facility] MCHC Auto (RBC) [Mass/Vol]Or dered By: Dr. Cain on 04-23-2023 MCHC (RBC) [Mass/Vol] 34.0 g/dL 32-36 [facility] Macrocytes detectionOrdered By: Dr. Cain on 04-23-2023 Macrocytes Ql (Bld) [facility] No Panel InformationOrdered By: Dr. Cain on 04-23-2023 Estimated GFR (MDRD) Amer 109 mL/min >60 [facility] Comment on above: GFR Calc Estimated GFR (MDRD) Non-Af Amer 90 mL/min >60 [facility] Comment on above: Non- GFR Calc Platelets bldOrdered By: Dr. Cain on 04-23-2023 Platelets (Bld) [#/Vol] 372 10*3/uL 150-450 [facility] RBC morphologyOrdered By: Dr Komal Cain on 04-23-2023 RBC morphology finding Nom (Bld) N CHROM NORMAL NORM C&C [facility] Review by pathologistOrdered By: Dr. Cain on 04-23-2023 Pathologist review Mikael (Unsp spec) [Interp] Reviewed [facility] Comment on above: Previous reported re sult: Sharlene birmingham Edited by: RGOJASPER on 04/24/23:1233Leukocytosis with Neutrophilic left shift. Clinical correlation necessary.Charlie Salazar M.D. 04/24/23 AMENDED REPORT 04/24/23 1233 PATH REV previously reported as: Sharlene birmingham Serum or plasma albumin tyrell urement (mass/volume)Ordered By: Dr. Cain on 04-23-2023 Albumin [Mass/Vol] 3.7 g/dL 3.2-5.0 [facility] Serum or plasma albumin/glob ulin mass ratioOrdered By: Dr. Cain on 04-23-2023 Albumin/Globulin [Mass ratio] 0.9 {ratio} 0.9-2.4 [facility] Serum or plasma calcium tyrell urement (mass/volume)Ordered By: Dr. Cain on 04-23-2023 Calcium [Mass/Vol] 9.6 mg/dL 8.5-10.1 [facility] Serum or plasma creatinine m easurement (mass/volume)Ordered By: Dr. Cain on 04-23-2023 Creatinine [Mass/Vol] 0.89 mg/dL 0.70-1.30 [facility] Comment on above: The validity of the calculated GFR & GFRAA in patients over 70 years has not been determined. Clinical correlation is essential. Serum or plasma urea nitroge n measurement (mass/volume)Ordered By: Dr. Cain on 04-23-2023 Urea nitrogen [Mass/Vol] 29 mg/dL 7-18 [facility] Thin prep Papanicolaou smear with manual screeningOrdered By: Dr. Cain on 04-23-2023 Thin prep Papanicolaou smear with manual screening 32 U/L 15-37 [facility] Thin prep Papanicolaou smear with manual screening 7 5-15 [facility] Absolute lymphocyte counton 05-03-2022 Lymphocytes Auto (Unsp spec) [#/Vol] 2.08 10*3/uL 0.83-4.51 [facility] Work Phone: Basophil percentageon 2021 Basophils/100 WBC (Bld) 1.1 % 0-1 [facility] Work Phone: Eosinophils/100 WBC (Bld) 11.6 % 0-5 [facility] Work Phone: Neutrophils (Bld) [#/Vol] 4.5 10*3/uL 2.0-7.7 [facility] Work Phone: Neutrophils/100 WBC (Bld) 52.8 % 47-70 [facility] Work Phone: WBC (Bld) [#/Vol] 8.6 10*3/uL 4.4-11.0 [facility] Work Phone: Blood erythrocytes count (nu mber/volume)on 05-03-2022 RBC (Bld) [#/Vol] 4.99 10*6/uL 4.6-6.2 [facility] Work Phone: Blood hemoglobin measurement (mass/volume)on 05-03-2022 Hemoglobin (Bld) [Mass/Vol] 15.1 g/dL 13.0-16.5 [facility] Work Phone: Blood lymphocytes/100 leukoc yteson 05-03-2022 Lymphocytes/100 WBC (Bld) 24.3 % 19-41 [facility] Work Phone: Blood monocytes/100 leukocyt eson 05-03-2022 Monocytes/100 WBC (Bld) 9.8 % 0-10 [facility] Work Phone: Blood platelet mean volumeon 05-03-2022 Platelet mean volume (Bld) [Entitic vol] 9.8 fL 6.2-12.0 [facility] Work Phone: Determination of erythrocyte mean corpuscular volume (MCV)on 05-03-2022 MCV (RBC) [Entitic vol] 90.0 fL 80-94 [facility] Work Phone: Erythrocyte sedimentation ra silviano 05-03-2022 ESR (Bld) [Velocity] 9 mm/h 0-20 [facility] Work Phone: Hematocrit Auto (Bld) [Volum e fraction]on 05-03-2022 Hematocrit (Bld) [Volume fraction] 44.9 % 40-54 [facility] Work Phone: Laboratory - Hematology and Cell countson 05-03-2022 Erythrocyte distribution width (RBC) [Entitic vol] 45.7 fL 35.1-43.9 [facility] Work Phone: Erythrocyte distribution width (RBC) [Ratio] 14.0 % 11.6-14.6 [facility] Work Phone: Immature granulocytes/100 WBC (Bld) 0.400 % 0.0-0.9 [facility] Work Phone: Comment on above: IG% - Immature Granu locytes (promyelocytes, myelocytes and metamyelocytes) > 1% indicates that a LEFT SHIFT is Present. MCH (RBC) [Entitic mass] 30.3 pg 27.0-32.0 [facility] Work Phone: Nucleated RBC/100 WBC (Bld) [Ratio] 0 % 0-5 [facility] [facility] Work Phone: MCHC Auto (RBC) [Mass/Vol]on 05-03-2022 MCHC (RBC) [Mass/Vol] 33.6 g/dL 32-36 [facility] Work Phone: No Panel Informationon 05-03 Anti-Nuclear Antibody Screen Negative Negative [facility] Work Phone: Comment on above: Performed at: [address] [id number] Director: Lauro Parmar PhD, Phone: [phone] Platelets bldon 05-03-2022 Platelets (Bld) [#/Vol] 302 10*3/uL 150-450 [facility] Work Phone: Serum or plasma C reactive p rotein measurement (mass/volume)on 05-03-2022 CRP [Mass/Vol] 4.43 mg/L 0.0-3.0 [facility] Work Phone: Comment on above: C-Reactive Protein ( CRP) provides useful information for thediagnosis, therapy and monitoring of inflammatory processesand associated diseases. For the evaluation of Relative Riskfor Cardiovascular Disease, a High Sensitivity CRP (HSCRP)should be ordered. Serum or plasma uric acid me asurement (mass/volume)on 05-03-2022 Urate [Mass/Vol] 4.9 mg/dL 3.5-7.2 [facility] Work Phone: Comment on above: The drugs N-Acetylcy steine and Metamizole may falsely depress this assay. Serum rheumatoid factor dete ctionon 05-03-2022 Rheumatoid factor Ql (S) < 10.0 IU/mL <15 [facility] Work Phone: Vital Signs Date Time Vital Sign Value Performing Clinician Faci lity 12-12-2024 05:00-0500 Diastolic blood pressure 101 mm[Hg] Dr. Krissy Cain MD Work Phone: [facility] 12-12-2024 05:00-0500 Heart rate 83 /min Dr. Krissy Cain MD Work Phone: [facility] 12-12-2024 05:00-0500 Respiratory rate 12 /min Dr. Krissy Cain MD Work Phone: [facility] 12-12-2024 05:00-0500 SaO2% (BldA) [Mass fraction] 95 % Dr. Krissy Cain MD Work Phone: [facility] 12-12-2024 05:00-0500 Systolic blood pressure 115 mm[Hg] Dr. Krissy Cain MD Work Phone: [facility] 12-12-2024 04:26-0500 Body temperature 98.2 [degF] Dr. Krissy Cain MD Work Phone: [facility] 12-12-2024 03:050 Body height 170.[address] Krissy Cain MD Work Phone: [facility] 12-12-2024 03:050 Body mass index (BMI) [Ratio] 35.5 kg/m2 Dr. Krissy Cain MD Work Phone: [facility] 12-12-2024 03:050 Body weight 102.[address] Krissy Cain MD Work Phone: [facility] Encounters Encounter Date Encounter Type Care Provider Facility Start: 06-17-2025 ambulatory [facility] Facility: [facility] Start: 02-03-2025 End: 02-03-[address] Krissy Cain MD Work Phone: [facility] Work Phone: Start: 02-03-2025 End: 02-03-[address] Krissy Cain MD -Laboratory, [facility] Start: 02-03-2025 End: 02-03-2025 ambulatory [facility] Facility:[facility] Start: 12-12-2024 End: 12-12-2024 Emergency department patient visit Dr. Omar Lomax MD -Emergency Department Work Phone: Start: 10-22-2024 End: 10-22-[address] Krissy Cain MD -Laboratory, [facility] Start: 10-22-2024 End: 10-22-2024 ambulatory [facility] Facility:[facility] Start: 10-22-2024 End: 10-22-2024 Discharged Recurring Nohemy ORTIZ -Occupational [facility] Work Phone: Start: 10-22-2024 End: 10-22-2024 ambulatory Krissy Cain Facility:[facility] Start: 11-05-2023 End: 11-05-2023 ambulatory [facility] Work Phone: Start: 11-05-2023 End: 11-05-2023 Patient encounter procedure [facility]-Laboratory, [place] Work Phone: Start: 09-19-2023 End: 09-19-2023 ambulatory [facility] Work Phone: Start: 09-19-2023 End: 09-19-2023 Patient encounter procedure [facility], [facility] Start: 05-01-2023 End: 05-01-2023 ambulatory [facility] Work Phone: Start: 05-01-2023 End: 05-01-2023 Patient encounter procedure [facility]-Ultrasound, [facility] Start: 04-25-2023 End: 04-25-2023 ambulatory [facility] Work Phone: Start: 04-25-2023 End: 04-25-2023 Patient encounter procedure [facility], [facility] Start: 04-24-2023 End: 04-24-2023 Patient encounter procedure [facility]-Cat Scan, [facility] Start: 04-23-2023 End: 04-23-2023 ambulatory [facility] Work Phone: Start: 04-23-2023 End: 04-23-2023 Patient encounter procedure [facility]-Laboratory, [facility] Start: 05-03-2022 End: 05-03-2022 Patient encounter procedure [facility]-Labor[facility] Start: 06-28-2021 ambulatory [facility] Facility [facility] Procedures Date Procedure Procedure Detail Performing Clinician Start: 12-12-2024 X-ray of chest, PA a nd lateral views Dr. Krissy Cain MD Work Phone: Start: 05-01-2023 Ultrasonography of abdomen Start: 04-24-2023 Computed tomography of abdomen and pelvis with contrast Plan of Treatment Date Care Activity Detail Author Start: 12-12-2024 [facility] Start: 12-12-2024 End: 12-12-2024 [facility] Patient Education ED Chest Pain, Noncardi ac [facility] Work Phone: Patient referral [facility] Work Phone: Payers Date Payer Category Payer Self-pay [id number] 2023 Medicare [id number] 2021 Medicare [id number] 2020 Unknown [id number] 2014 Unknown [id number] 1955 Unknown [id number] Private Health Insurance [id number] Unknown [id number] [id number] Unknown [id number] [id number] [id number] Unknown [id number] [id number] [id number] Unknown [id number] [id number] [id number] Unknown [id number] [id number] [id number] Social History Date Type Detail Facility Start: 08-28-2021 End: 08-28-2021 Tobacco smoking status NHIS Unknown if ever smoked [facility] Start: 1955 Sex Assigned At Male [facility] Start: 12-12-2024 [facility] Start: 03-31-2025 Sex Male (finding) [facility] Mental Status Date Assessment Result Facility 12-12-2024 Cognitive function Voice/Name [facility] Work Phone: Evaluation note Note Date & Type Note Facility Evaluation note No assessment information availa ble [facility] Work Phone: Reason for referral (narrative) Note Date & Type Note Facility Reason for referral (narrative) No reason for referral information available [facility] Work Phone: Summary Purpose Family History No Family History Records Found Relationship Condition Age at Onset Recorded Date/T lizabeth Not Specified Malignant neoplasm Unknown father Coronary artery disease Unknown Cardiac disease Unknown mother Cerebrovascular accident (CVA) Unknown Advance Directives No Advanced Directives Records Found Advance Directive Response Recorded Date/ Time Living Will Yes June 04, 2021 4:33pm Power of Senior Policy Analyst Yes June 04 4:33pm Advance Directive Response Recorded Date/ Time Living Will Yes June 04, 2021 3:33pm Power of Senior Policy Analyst Yes June 04 3:33pm Advance Directive Response Recorded Date/ Time Living Will Yes June 04, 2021 4:33pm Do you have a Healthcare Power of Senior Policy Analyst? Yes June 04, 2021 4:33pm Living Will Yes December 12 4:22am Do you have a Healthcare Power of Senior Policy Analyst? Yes December 12, 2024 4:22am Name of Medical Power of Senior Policy Analyst Mirta Bell December 12, 2024 4:22am Chief Complaint and Reason for Visit Chief Complaint PANCREATITIS Chief Complaint PANCREATITIS RUQ PAIN Chief Complaint Admit Date CARPAL TUNNEL SYND L UPPER. RX HERE Dece mber 2023 11:00am chest pain December 12, 2024 3 :10am Additional Source Comments (unrecognized sect ion and content) No Status Records FoundNo Status Records Found INFORMATION SOURCE (unrecogn ized section and content) DATE CREATED AUTHOR 06/30/2021 [facility] DATE CREATED AUTHOR AUTHOR'S MILAN GALLEGO 06/19/2025 [facility] Goals (unrecognized section and content) Goals may be documented in a n alternate sectionGoals may be documented in an alternate sectionGoals may be documented in an alternate sectionGoals may be documented in an alternate sectionGoals may be documented in an alternate sectionGoals may be documented in an alternate sectionGoals may be documented in an alternate section Care Teams (unrecognized sec tion and content) Team Status: Active Member Role Status Dates Dr. Wally Gan MD Family Provider Active Dr. Krissy Cain MD Primary Care Provider Active Team Status: Inactive Member Role Status Dates Dr. Krissy Cain MD Primary Care Prov ider, Attending Provider, Referring Provider Active Team Status: Active Member Role Status Dates Dr. Krissy Cain MD Primary Care Prov ider, Attending Provider, Referring Provider Active Team Status: Inactive Member Role Status Dates Dr. Krissy Cain MD Primary Care Provider, Attendin g Provider Active Team Status: Active Member Role Status Dates Dr. Krissy Cain MD Primary Care Provider Active Team Status: Inactive Member Role Status Dates Dr. Krissy Cain MD Primary Care Provider Active Start: October 22, 2024 End: October 22, 2024 DIANA Kwon Attending Provider Active Start: October 22, 2024 End: October 22, 2024 DIANA Kwon Referring Provider Active Start: October 22, 2024 End: October 22, 2024 Team Status: Inactive Member Role Status Dates Dr. Krissy Cain MD Primary Care Provider Active Start: October 22, 2024 End: October 22, 2024 Dr. Krissy Cain MD Attending Provider Active Start: October 22, 2024 End: October 22, 2024 Dr. Krissy Cain MD Referring Provider Active Start: October 22, 2024 End: October 22, 2024 Team Status: Inactive Member Role Status Dates Dr. Krissy Cain MD Primary Care Provider Active Start: December 12, 2024 End: December 12, 2024 Dr. Omar Lomax MD Attending Provider Active Start: December 12, 2024 End: December 12, 2024 Dr. Omar Lomax MD Emergency Provider Active Start: December 12, 2024 End: December 12, 2024 Team Status: Inactive Member Role Status Dates Dr. Krissy Cain MD Primary Care Provider Active Start: February 03, 2025 End: February 03, 2025 Dr. Krissy Cain MD Attending Provider Active Start: February 03, 2025 End: February 03, 2025 FOR RECORDS PERTAINING TO PATIENTS WHO ARE OR HAVE BEEN ENROLLED IN A CHEMICAL DEPENDENCY/SUBSTANCEABUSE PROGRAM, SOME INFORMATION MAY BE OMITTED. This clinical summary was aggregated from multiple sources. Caution should be exercised in using it in the provision of clinical care. This summary normalizes information from multiple sources, and as a consequence, information in this document may materially change the coding, format and clinical context of patient data. In addition, data may be omitted in some cases. CLINICAL DECISIONS SHOULD BE BASED ON THE PRIMARY CLINICAL RECORDS. [facility]. provides no warranty or guarantee of the accuracy or completeness of information in this document.
[2025-06-24 10:27] LABS: Hematocrit 42.1 % (40-54); Hemoglobin 14.4 g/dL (13.0-16.5); Immature Granulocytes Count 0.040 X10^3/uL (0.0-0.0); Mean Corp Hgb Conc 34.2 g/dL (32-36); Mean Corpuscular Volume 89.2 fL (80-94); Mean Platelet Vol. 9.8 fl (6.2-12.0); NRBC Flagged by Analyzer 0.2 % (0-5); Platelet Count 310 K/mm3 (150-450); RBC Distribution Width CV 14.2 % (11.6-14.6); RBC Distribution Width SD 45.5 fl (35.1-43.9); Red Blood Count 4.72 M/mm3 (4.6-6.2); White Blood Count 9.2 K/mm3 (4.4-11.0)
[2025-06-24 10:49] LABS: AST(SGOT) 29 U/L (<=37); Alanine Aminotransfer ALT/SGPT 17 U/L (<=46); Albumin, Serum 4.3 g/dL (3.4-4.8); Alkaline Phosphatase 60 U/L (40-129); Anion Gap 12 (5-15); BUN 19 mg/dL (4-19); BUN/Creat Ratio 21.8 RATIO (10-20); Calcium,Total 9.8 mg/dL (7.6-11.0); Carbon Dioxide 23.2 mmol/L (21.0-32.0); Chloride 103 mmol/L (98-108); Cholesterol 176 mg/dL (<=200); Globulin 3.0 g/dL (2.2-4.2); Glucose 106 mg/dL (70-99); Low Density Lipoprotein Calc. 101 mg/dL; Potassium 4.2 mmol/L (3.3-5.1); Triglycerides 149 mg/dL; Very Low Density Lipoprotein 30 mg/dL (5-40); cholesterol:hdl ratio screen 3.89
== END | disposition home or self-care (01) ==
PROVIDERS: PCP Family Medicine; Referring Provider Family Medicine; Visit Provider Family Medicine
DX: I10 Essential (primary) hypertension (principal); E03.9 Hypothyroidism, unspecified; K21.9 Gastro-esophageal reflux disease without esophagitis
CPT/HCPCS: 36415; 80053; 80061; 84439; 84443; 85025